=== PATIENT | male | born 1945 | race Caucasian/White ===

== ENCOUNTER 2018-05-01 19:03 | Inpatient (IN) ==
[2018-05-01] MEDS ORDERED: NS 1000 ML 1,000 ML IV ONE (19:43)
--- NOTE | 2018-05-01 19:43 | DR.GENAD ---
HPI - PCP Primary Care Physician: Gregory - Complaint/Symptoms Chief Complaint Doctors Comments: I agree with statement as written. Chief Complaint:: Started having trouble breathing yesterday which has became worse. Patient's states that his left arm has been hurting him, he has had trouble walking and his face has been very red. Patient states that he was diagnosed with ALS 8 months ago. - Source History Provided: Patient, Significant Other - Mode of Arrival Mode of Arrival: Ambulatory - Timing Onset of Chief Complaint: 04/30/18 PMH - PMH Past Medical History: Yes Past Medical History: Kidney Stones Past Medical History Comment: ALS, HX of throrat CA Past Surgical History: Yes Surgical History: Cholecystectomy, Ortho Surgery, Lithotripsy Past Surgical History Comment: BACK SURGERY - Family History History of Family Medical Conditions: Yes Family Medical History: Diabetes Mellitus, Cancer, [place] - Social History Does patient currently use any type of tobacco product: No Have you used tobacco products in the last 12 months: No Type of Tobacco Use: Cigarettes Does any household member use tobacco: No Alcohol Use: None Do you use any recreational Drugs:: No Lives With: Spouse Lives Where: Home - infectious screening In the last 2 months have you had wt loss of >10#?: NO Have you had fever, night sweats or hemotysis?: No Have you traveled outside the country in the last 6 months?: No Isolation: Standard ROS - Review of Systems Eyes: No Symptoms Reported ENTM: No Symptoms Reported Respiratoy: No Symptoms Reported Cardiovascular: No Symptoms Reported Gastrointestinal/Abdominal: No Symptoms Reported Genitourinary: No Symptoms Reported Neurological: No Symptoms Reported Musculoskeletal: No Symptoms Reported Integumentary: No Symptoms Reported Hematologic/Lymphatic: No Symptoms Reported Endocrine: No Symptoms Reported Psychiatric: No Symptoms Reported All Other Systems: Reviewed and Negative PE - General General Appearance: Alert, In No Apparent Distress - Head Head Exam: Normal Inspection, Atraumatic - Eyes Eye exam: Normal Appearance, PERRL, EOMI - ENT ENT Exam: Normal Exam External Ear Exam: Normal External Inspection TM/Canal Exam: Bilateral Normal Nose Exam: Normal Nose Exam Mouth Exam: Normal Inspection Throat Exam: Normal Inspection - Neck Neck Exam: Normal Inspection, Full ROM - Chest Chest Inspection: Normal Inspection, Symmetric Chest Wall Rise - Respiratory Respiratory Exam: Normal Lung Sounds Bilat Respiratory Exam: Bilateral Clear to Auscultation - Cardiovascular Cardiovascular Exam: Regular Rate, Normal Rhythm - Abdominal Exam Abdominal Exam: Normal Inspection, Normal Bowel Sounds Abdominal Tenderness: negative: RUQ, RLQ, LUQ, LLQ, Epigastrium, Suprapubic, Diffuse, Mild, Moderate, Severe, Other - Extremities Extremities Exam: Normal Inspection - Back Back Exam: Normal Inspection, Full ROM - Neurologic Neurological Exam: Alert, Oriented X3, CN II-XII Intact - Psychiatric Psychiatric Exam: Normal Affect - Skin Skin Exam: Warm, Dry, Intact - Vital Signs Vitals: Temperature 102.2 F Pulse Rate 90 Respiratory Rate 20 Blood Pressure 111/68 O2 Sat by Pulse Oximetry 93 Course - Treatment Treatment: antibiotic - Reevaluation 1st: Unchanged - Consultation Called: 00:15 (Dr Sumner agreed to admit for further management) ROR - Labs Reviewed Result Diagrams: 05/01/18 20:03 05/01/18 20:03 - XRAY XRAY Interpreted by: Radiologist - Labs Reviewed Laboratory: WBC 10.1 X10^3/uL (3.6-10.0) H 05/01/18 20:03 RBC 4.59 X10^6/uL (4.7-6.0) L 05/01/18 20:03 Hgb 14.5 g/dL (13.5-18.0) 05/01/18 20:03 Hct 41.7 % (42.0-54.0) L 05/01/18 20:03 MCV 90.8 fL (80.0-100.0) 05/01/18 20:03 MCH 31.5 pg (27.0-34.0) 05/01/18 20:03 MCHC 34.7 g/dL (33.0-35.0) 05/01/18 20:03 RDW 12.9 % (11.6-16.5) 05/01/18 20:03 Plt Count 89 X10^3/uL (150.0-450.0) L 05/01/18 20:03 MPV 9.7 fL (7.4-11.0) 05/01/18 20:03 Neut % (Auto) 89.2 % (42.0-75.0) H 05/01/18 20:03 Lymph % (Auto) 4.9 % (21.0-51.0) L 05/01/18 20:03 [place] % (Auto) 5.7 % (0.0-13.0) 05/01/18 20:03 Eos % (Auto) 0.0 % (0.9-2.9) L 05/01/18 20:03 Baso % (Auto) 0.2 % (0.2-1.0) 05/01/18 20:03 Neut # (Auto) 9.0 x10^3/uL (2.2-4.8) H 05/01/18 20:03 Lymph # (Auto) 0.5 X10^3/uL (1.3-2.9) L 05/01/18 20:03 [place] # (Auto) 0.6 x10^3/uL (0.3-0.8) 05/01/18 20:03 Eos # (Auto) 0.0 x10^3/uL (0.0-0.2) 05/01/18 20:03 Baso # (Auto) 0.0 X10^3/uL (0.0-0.1) 05/01/18 20:03 Absolute Nucleated RBC 0.2 /100WBC 05/01/18 20:03 INR Target Range - 05/01/18 20:03 INR 1.11 (0.8-1.3) 05/01/18 20:03 Sodium 138 mmol/L (136-145) 05/01/18 20:03 Corrected Sodium TNP 05/01/18 20:03 Potassium 4.3 mmol/L (3.5-5.1) 05/01/18 20:03 Chloride 100 mmol/L (98-107) 05/01/18 20:03 Carbon Dioxide 31.2 mmol/L (21-32) 05/01/18 20:03 BUN 16 mg/dL (7-18) 05/01/18 20:03 Creatinine 1.01 mg/dL (0.70-1.30) 05/01/18 20:03 Est GFR (MDRD) Af Amer > 60 (>60) 05/01/18 20:03 Est GFR (MDRD) Non-Af > 60 (>60) 05/01/18 20:03 Glucose 106 mg/dL (65-99) H 05/01/18 20:03 Calcium 9.5 mg/dL (8.5-10.1) 05/01/18 20: Magnesium 1.3 mg/dL (1.7-2.9) L 05/01/18 20: Creatine Kinase 313 Units/L (39-308) H 05/01/18 20: CK-MB (CK-2) 3.3 ng/mL (0-4.0) 05/01/18 20: CK/CKMB % Calc 1.1 % (<4) 05/01/18 20: Troponin I < 0.02 ng/mL (0-1.5) 05/01/18 20:03 Specimen Type Clean catch urine 05/01/18 20: Urine Color Yellow (YELLOW) 05/01/18 20: Urine Appearance Clear (CLEAR) 05/01/18 20: Urine pH 8.0 (5.0 - 8.0) 05/01/18 20: Ur Specific [place] 1.015 (1.000-1.030) 05/01/18 20: Urine Protein 3+ (NEGATIVE) 05/01/18 20: Urine Glucose (UA) Negative (NEGATIVE) 05/01/18 20: Urine Ketones 1+ (NEGATIVE) 05/01/18 20: Urine Occult Blood 5+ (NEGATIVE) 05/01/18 20: Urine Nitrite Negative (NEGATIVE) 05/01/18 20: Urine Bilirubin Negative (NEGATIVE) 05/01/18 20: Urine Urobilinogen 2+ (NORMAL) 05/01/18 20:27 Ur Leukocyte Esterase 1+ (NEGATIVE) 05/01/18 20: Urine RBC Tntc /HPF (NONE SEEN) 05/01/18 20: Urine WBC 0-2 /HPF (NONE SEEN) 05/01/18 20:27 Ur Squamous Epith Cells Few /HPF (NEGATIVE) 05/01/18 20:27 Ur Renal Epithelial Cell Rare /HPF (NEGATIVE) 05/01/18 20: Amorphous Sediment 1+ /HPF (NEGATIVE) 05/01/18 20: Urine Bacteria Negative /HPF (NEGATIVE) 05/01/18 20: Hyaline Casts Rare /LPF (NEGATIVE) 05/01/18 20: Urine Mucus Moderate /HPF (NEGATIVE) 05/01/18 20: Ur Culture Indicated? No/not indicated 05/01/18 20:27 - Diagnosis Discharge Problem: Left lower lobe pneumonia Qualifiers: Pneumonia type: due to unspecified organism Qualified Code(s): J18.1 - Lobar pneumonia, unspecified organism - Discharge Plan Condition: Stable - Follow ups/Referrals Follow ups/Referrals: NFD,None [Primary Care Provider] - 3 days - Instructions
[2018-05-01] MEDS ORDERED: TORADOL 15 MG VIAL IVP ONE (19:44)
[2018-05-01] MEDS ORDERED: TORADOL 30 MG VIAL ONE (19:47)
[2018-05-01] MEDS ORDERED: NS 1000 ML 1,000 ML ONE ×2 (19:47→21:50)
[2018-05-01 20:46] LABS: CREATINE KINASE 313 Units/L (39-308); TROPONIN I < 0.02 ng/mL (0-1.5)
[2018-05-01 20:50] LABS: BASOPHILS % (AUTO) 0.2 % (0.2-1.0); BLOOD UREA NITROGEN 16 mg/dL (7-18); CALCIUM 9.5 mg/dL (8.5-10.1); CARBON DIOXIDE 31.2 mmol/L (21-32); CHLORIDE 100 mmol/L (98-107); CREATININE 1.01 mg/dL (0.70-1.30); HEMATOCRIT 41.7 % (42.0-54.0); HEMOGLOBIN 14.5 g/dL (13.5-18.0); LYMPHOCYTES # (AUTO) 0.5 X10^3/uL (1.3-2.9); LYMPHOCYTES % (AUTO) 4.9 % (21.0-51.0); MEAN CORPUSCULAR HEMOGLOBIN 31.5 pg (27.0-34.0); MEAN CORPUSCULAR HGB CONC 34.7 g/dL (33.0-35.0); MEAN CORPUSCULAR VOLUME 90.8 fL (80.0-100.0); MEAN PLATELET VOLUME 9.7 fL (7.4-11.0); MONOCYTES # (AUTO) 0.6 x10^3/uL (0.3-0.8); MONOCYTES % (AUTO) 5.7 % (0.0-13.0); NEUTROPHILS % (AUTO) 89.2 % (42.0-75.0); PLATELET COUNT 89 X10^3/uL (150.0-450.0); RED BLOOD COUNT 4.59 X10^6/uL (4.7-6.0); RED CELL DISTRIBUTION WIDTH 12.9 % (11.6-16.5); SODIUM 138 mmol/L (136-145); WHITE BLOOD COUNT 10.1 X10^3/uL (3.6-10.0); eGFR NON BLACK RACES > 60 (>60)
[2018-05-01 20:51] LABS: BILIRUBIN,URINE NEGATIVE (NEGATIVE); BLOOD/HEMOGLOBIN,URINE 5+ (NEGATIVE); GLUCOSE, URINE NEGATIVE (NEGATIVE); KETONES,URINE 1+ (NEGATIVE); LEUKOCYTE ESTERASE ,URINE 1+ (NEGATIVE); NITRITES,URINE NEGATIVE (NEGATIVE); PROTEIN,URINE 3+ (NEGATIVE); UROBILINOGEN,URINE 2+ (NORMAL)
[2018-05-01 20:53] LABS: CKMB % 1.1 % (<4); CREATINE KINASE MB 3.3 ng/mL (0-4.0)
[2018-05-01 20:54] LABS: APPEARANCE,URINE CLEAR (CLEAR); COLOR,URINE YELLOW (YELLOW)
[2018-05-01 21:04] LABS: RBC,URINE TNTC /HPF (NONE SEEN)
[2018-05-01 21:05] LABS: AMORPHOUS SEDIMENT,UR 1+ /HPF (NEGATIVE); BACTERIA,URINE NEGATIVE /HPF (NEGATIVE); HYALINE CASTS, URINE RARE /LPF (NEGATIVE); MUCUS,URINE MODERATE /HPF (NEGATIVE); RENAL EPITHELIAL CELLS,URINE RARE /HPF (NEGATIVE); SQUAMOUS EPITHELIAL CELL,UR FEW /HPF (NEGATIVE)
--- NOTE | 2018-05-01 21:05 | RAD ---
HISTORY: Chest pain and shortness of breath Study: Single view of the chest. Comparison: Possible left lower lobe opacity Findings: The cardiomediastinal silhouette is normal. No focal consolidations, pleural effusions or pneumothora x. Osseous structures demonstrate no acute abnormality. IMPRESSION: 1. Questionable left lower lobe opacity. Recommend PA and lateral views. Reported By:
--- NOTE | 2018-05-01 21:05 | RAD ---
HISTORY: Left arm pain Study: 3 views of the cervical spine. Comparison: None Findings: The cervical spine demonstrate normal alignment from the craniocervical junction to the level of T1. Multilevel degenerative disc disease worst at C3-C4. The vertebral body heights are normal. No preve rtebral soft tissue swelling can be identified. The odontoid appears intact. The lateral masses of C1 align with the body of C2. IMPRESSION: 1. Multilevel degenerative disc disease as above. Reported By:
[2018-05-01] MEDS ORDERED: MAGNESIUM SULFATE 1 GRAM/100 mL PREMIX 1 G/100 ML BAG IV ONE (21:19)
[2018-05-01] MEDS ORDERED: NS 1000 ML 1,000 ML IV SCH (22:05)
[2018-05-01] MEDS ORDERED: TYLENOL 500 MG TAB EXTRA STRENGTH PO ONE ×2 (23:13→23:17)
[2018-05-02] MEDS ORDERED: NS 1/2 1000 ML IV 1,000 ML IV ONE ×2 (00:33→17:16)
[2018-05-02] MEDS ORDERED: ROCEPHIN VIAL 1 GRAM ONE (00:33)
[2018-05-02] MEDS ORDERED: NS 100 ML IV + SPIKE MINIBAG* 100 ML IV ONE ×2 (00:35→02:00)
[2018-05-02] MEDS: ROCEPHIN 1 GRAM IV PREMIX 1 G/50 ML IV.SOLN. IV SCH ×3 (00:39→08:43)
[2018-05-02] MEDS: NS 1/2 1000 ML IV 1,000 ML IV SCH ×2 (00:40→17:28)
[2018-05-02 01:59] LABS: ABG BASE EXCESS 5.3 mmol/L (-2.0-2.0)
[2018-05-02 02:00] LABS: ABG HCO3 30.5 mmol/L (22-26)
[2018-05-02] MEDS ORDERED: VIBRAMYCIN IV ONE (02:00)
[2018-05-02] MEDS: VIBRAMYCIN 100 MG in NS 100 ML IV + SPIKE MINIBAG* 100 ML IV SCH ×3 (02:05→21:15)
[2018-05-02] MEDS: XOPENEX 1.25 MG/3 ML NEBULE NEB SCH ×5 (02:11→21:43)
[2018-05-02] MEDS: VALIUM PO PRN ×2 (04:40→21:16)
[2018-05-02] MEDS ORDERED: MAGNESIUM SULFATE 1 GRAM/100 mL PREMIX 1 G/100 ML BAG IV ONE (05:54)
[2018-05-02] MEDS: MAGNESIUM SULFATE 1 GRAM/100 mL PREMIX 1 GM/100 ML BAG IV PRN ×2 (06:26→08:42)
--- NOTE | 2018-05-02 08:32 | DR.H&P ---
H&P - History & Physical for Day of: H&P Date: 05/01/18 - Chief Complaint Chief Complaint: SHORT OF BREATH, LEFT ARM PAIN - History of Present Illness History of Present Illness: IS A 73 YEAR OLD PATIENT OF OURS WHO PRESENTED TO THE EMERGENCY ROOM WITH COMPLAINTS OF SHORTNESS OF BREATH AND DIFFICULTY BREATHING. ASSOCIATED LEFT ARM PAIN AND DIFFICULTY WALKING WAS REPORTED BY PATIENTS SPOUSE. SHE ALSO REPORTS THAT HIS FACE HAD BEEN VERY RED. PATIENT HAS A HISTORY SIGNIFICANT FOR THROAT CANCER AND ALS WHICH WAS DIAGNOSED EIGHT MONTHS AGO. ON ARRIVAL, VITALS WERE 102.2-90-20-93%-111/68. LABS WERE OBTAINED. ABNORMAL LAB VALUES INCLUDE THE FOLLOWING: WBC 10.1, RBC 4.59, HCT 41.7, PLT COUNT 89, GLUCOSE 106, MAGNESIUM 1.3, CREATINE KINASE 313. ABG REVEALED PH 7.430, PC02 46, P02 61, HC03 30.5, OXYGEN SATURATION 92, BASE EXCESS 5.3. URINALYSIS REVEALED RBC TNTC, WBC 0-2, LEUKOCYTES 1+, BACTERIA NEGATIVE. A CHEST XRAY WAS OBTAINED AND REVEALED QUESTIONABLE LEFT LOWER LOBE OPACITY. C-SPINE WAS OBTAINED DUE TO COMPLAINTS OF LEFT ARM PAIN AND NECK PAIN. IT REVEALED MULTILEVEL DEGENERATIVE DISC DISEASE. EKG REVEALED ATRIAL FIBRILLATION WITH HR 109. HE WAS GIVEN TYLENOL FOR FEVER, MAGNESIUM SULFATE 1GM IV, TORADOL 30MG IV X 1 DOSE, AND A NORMAL SALINE BOLUS IN THE ER. HE WAS THEN STARTED ON NS AT 75ML/HR, ROCEPHIN 1GM IV DAILY, AND DOXYCYCLINE 100MG IV Q12H. HE WAS ADMITTED TO THE HOSPITAL FOR FURTHER EVALUATION AND TREATMENT OF LEFT LOWER LOBE PNEUMONIA. WE PLAN TO FOLLOW UP WITH AM LABS AND CHEST XRAY AND CONTINUE TO MONITOR PATIENT. - Past Medical History Past Medical History: Anxiety, Arthritis, Kidney Stones Additional Medical History: ALS, PERICARDITIS, CONSTIPATION, KIDNEY STONES, CHRONIC BACK PAIN, RHEUMATOID ARTHRITIS, THROAT CANCER - Past Surgical History Surgical History: Appendectomy, Cholecystectomy, Lithotripsy, Other - Family History Family Medical History: Diabetes Mellitus, Cancer, [place] - Social History Does patient currently use any type of tobacco product: No Have you used tobacco products in the last 12 months: No Type of Tobacco Use: None How many years tobacco product used: 40 Does any household member use tobacco: No Alcohol Use: None Drug Use: None - Medications Home Medications: acetaminophen [From Percocet] Adverse Reaction (Verified 05/01/18 19:05) ciprofloxacin [From Cipro] Adverse Reaction (Verified 05/01/18 19:05) oxycodone [From Percocet] Adverse Reaction (Verified 05/01/18 19:05) CONTINUE taking the following medications NK 05/02/18 [History] - Review of Systems Constitutional: Fever, Weakness Eyes: No Symptoms Reported ENT: No Symptoms Reported Respiratory: See HPI, Cough, Shortness of Breath. denies: Sputum, Wheezing Cardiovascular: No Symptoms Reported Gastrointestinal: No Symptoms Reported Genitourinary: No Symptoms Reported Musculoskeletal: No Symptoms Reported Skin: No Symptoms Reported Neurological: Weakness - Physical Exam Vital Signs: Temperature 97.9 F Pulse Rate [Right Radial] 96 Pulse Rate 112 Respiratory Rate 20 Blood Pressure [Left Arm] 136/71 Blood Pressure 111/68 O2 Sat by Pulse Oximetry 99 Oriented: Normal Eyes: Normal Ear: Normal Nose: Normal Throat: Normal Respiratory: Diminished Throughout Cardiovascular: Normal. negative: S3, S4, Murmur, Edema : Normal Auscultation: Bowel Sounds: Normal Palpation: Normal Tenderness: Normal Skin: Normal Musculoskeletal: Normal Psychiatric: Normal Mood Description: Calm Affect: Normal Speech Pattern: Clear - Assessment/Plan (1) Left lower lobe pneumonia Qualifiers: Pneumonia type: due to unspecified organism Qualified Code(s): J18.1 - Lobar pneumonia, unspecified organism Status: Acute Plan: ADMIT, PNEUMONIA PROTOCOL, ROCEPHIN IV DAILY, DOXYCYCLINE 100MG IV Q12H, SUPPLEMENTAL OXYGEN, RESPIRATORY TREATMENTS, CONTINUE TO MONITOR - Allergies Allergies/Adverse Reactions: Allergies Allergy/AdvReac Type Severity Reaction Status Date / Time acetaminophen [From Percocet] AdvReac Verified 05/01/18 19:05 ciprofloxacin [From Cipro] AdvReac Verified 05/01/18 19:05 oxycodone [From Percocet] AdvReac Verified 05/01/18 19:05
[2018-05-02 08:38] LABS: BASOPHILS % (AUTO) 0.1 % (0.2-1.0); HEMATOCRIT 35.7 % (42.0-54.0); HEMOGLOBIN 12.3 g/dL (13.5-18.0); LYMPHOCYTES # (AUTO) 0.5 X10^3/uL (1.3-2.9); LYMPHOCYTES % (AUTO) 7.1 % (21.0-51.0); MEAN CORPUSCULAR HEMOGLOBIN 31.7 pg (27.0-34.0); MEAN CORPUSCULAR HGB CONC 34.3 g/dL (33.0-35.0); MEAN CORPUSCULAR VOLUME 92.2 fL (80.0-100.0); MEAN PLATELET VOLUME 10.1 fL (7.4-11.0); MONOCYTES # (AUTO) 0.5 x10^3/uL (0.3-0.8); MONOCYTES % (AUTO) 6.4 % (0.0-13.0); NEUTROPHILS # (AUTO) 6.6 x10^3/uL (2.2-4.8); NEUTROPHILS % (AUTO) 86.4 % (42.0-75.0); PLATELET COUNT 64 X10^3/uL (150.0-450.0); RED BLOOD COUNT 3.87 X10^6/uL (4.7-6.0); RED CELL DISTRIBUTION WIDTH 12.8 % (11.6-16.5); WHITE BLOOD COUNT 7.6 X10^3/uL (3.6-10.0)
[2018-05-02 08:39] LABS: BLOOD UREA NITROGEN 16 mg/dL (7-18); CALCIUM 8.8 mg/dL (8.5-10.1); CARBON DIOXIDE 30.1 mmol/L (21-32); CHLORIDE 104 mmol/L (98-107); COR NA(FOR HYPERGLY) 142 mmol/L (136-145); CREATININE 1.05 mg/dL (0.70-1.30); SODIUM 140 mmol/L (136-145); eGFR NON BLACK RACES > 60 (>60)
[2018-05-02] MEDS: ROBITUSSIN DM PO SCH ×4 (08:41→21:15)
[2018-05-02] MEDS: MILK OF MAGNESIA PO SCH ×2 (08:41→21:15)
[2018-05-02 08:43] LABS: CKMB % 1.6 % (<4); CREATINE KINASE 170 Units/L (39-308); CREATINE KINASE MB 2.7 ng/mL (0-4.0); TROPONIN I 0.02 ng/mL (0-1.5)
--- NOTE | 2018-05-02 08:57 | RAD ---
History: Left lower lobe pneumonia, shortness of breath, comparison 05/01/2018 Study: Portable chest Findings: Portable AP erect chest labeled 845 hours shows the cardiac silhouette to be within normal limits. The pulmonary vasculature appears at upper limits normal. There is opacity in the left base compatible with pneumonia and/or atelectasis. No pleural effusion i s identified. The osseous structures appear intact. Impression: 1. Increasing opacity left base, atelectasis versus pneumonia. 2. No additional consolidation elsewhere in the chest is identified. Reported By:
[2018-05-02 13:53] LABS: ALANINE AMINOTRANSFERASE 31 Units/L (12-78); ALBUMIN 2.7 g/dL (3.4-5.0); ALKALINE PHOSPHATASE 46 Units/L (46-116); ASPARTATE AMINO TRANSFERASE 37 Units/L (15-37); COR CA(FOR HYPOALB) 9.8 mg/dL (8.5-10.1); TOTAL PROTEIN 5.5 g/dL (6.4-8.2)
--- NOTE | 2018-05-02 17:50 | PCM.PROG ---
Progress Note - Progress Note for Day of Date: 05/02/18 - Subjective Subjective: WAS ADMITTED LAST NIGHT FOR LEFT LOWER LOBE PNEUMONIA. TODAY , HE IS ALERT AND ORIENTED, LYING IN BED ON MORNING ROUNDS. HE CONTINUES WITH COMPLAINTS OF SHORTNESS OF BREATH, BUT REPORTS THAT IT HAS SLIGHTLY IMPROVED SINCE ADMISSION. ON EXAMINATION, HEART IS REGULAR IN RATE AND RHYTHM. BILATERAL LUNGS ARE NOTED WITH DIMINISHED LUNG SOUNDS THROUGHT. HE IS CURRENTLY UTILIZING OXYGEN VIA NASAL CANNULA AT 2L/MIN. ABDOMEN IS ROUND, SOFT, AND NON-TENDER WITH NORMAL BOWEL SOUNDS NOTED IN ALL QUADRANTS. HIS VITALS THIS MORNING ARE 97.6-78- 20-96%-113/53. LABS WERE OBTAINED. ABNORMAL LAB VALUES INCLUDE THE FOLLOWING: RBC 3.87, HGB 12.3, HCT 35.7, PLT COUNT 64, GLUCOSE 169, MAGNESIUM 1.5, TOTAL PROTEIN 5.5, ALBUMIN 2.7. TODAYS CHEST XRAY REVEALED INCREASING OPACITY LEFT BASE, ATELECTASIS VERSUS PNEUMONIA. HE IS CURRENTLY RECEIVING ROCEPHIN AND DOXYCYCLINE WELL RESPIRATORY TREATMENTS AND SUPPELEMENTAL OXYGEN. WE WILL CONTINUE WITH CURRENT PLAN OF ARE AND REPLACE HIS MAGNESIUM TODAY. OTHERWISE, WE WILL FOLLOW UP WITH AM LABS AND CHEST XRAY AND CONTINUE TO MONITOR PATIENT. - Past Medical Family Social History Past Med/Fam/Surg Hx: No changes since H&P Allergies: Allergies acetaminophen [From Percocet] Adverse Reaction (Verified 05/01/18 19:05) ciprofloxacin [From Cipro] Adverse Reaction (Verified 05/01/18 19:05) oxycodone [From Percocet] Adverse Reaction (Verified 05/01/18 19:05) - Review of Systems ROS: No change since H&P - Vital Signs and I&O's Vital Signs: Temperature 97.2 F Pulse Rate [Right Radial] 91 Pulse Rate 88 Respiratory Rate 18 Blood Pressure [Left Arm] 137/69 Blood Pressure 111/68 O2 Sat by Pulse Oximetry 97 Intake and Output: Intake & Output 04/30/18 05/01/18 05/02/18 05/03/18 11:59 11:59 11:59 11:59 Intake Total 720 / 720 1350 / 1350 Output Total 700 / 700 200 / 200 Balance 1150 / 1150 - Physical Exam Oriented: Normal Eyes: Normal Ear: Normal Nose: Normal Throat: Normal Respiratory: Generalized, Diminished Cardiovascular: Normal. negative: S3, S4, Murmur, Edema : Normal Auscultation: Bowel Sounds: Normal Palpation: Normal Tenderness: Normal Skin: Normal Musculoskeletal: Normal Psychiatric: Normal Mood Description: Calm Affect: Normal Speech Pattern: Clear - Laboratory and Diagnostics Result Diagrams: 05/02/18 05:05 05/02/18 05:05 Labs: 05/02/18 00:15 Sputum - Expectorated Sputum - Final Laboratory WBC 7.6 X10^3/uL (3.6-10.0) 05/02/18 05:05 RBC 3.87 X10^6/uL (4.7-6.0) L 05/02/18 05:05 Hgb 12.3 g/dL (13.5-18.0) L D 05/02/18 05:05 Hct 35.7 % (42.0-54.0) L 05/02/18 05:05 MCV 92.2 fL (80.0-100.0) 05/02/18 05:05 MCH 31.7 pg (27.0-34.0) 05/02/18 05:05 MCHC 34.3 g/dL (33.0-35.0) 05/02/18 05:05 RDW 12.8 % (11.6-16.5) 05/02/18 05:05 Plt Count 64 X10^3/uL (150.0-450.0) L 05/02/18 05:05 MPV 10.1 fL (7.4-11.0) 05/02/18 05:05 Neut % (Auto) 86.4 % (42.0-75.0) H 05/02/18 05:05 Lymph % (Auto) 7.1 % (21.0-51.0) L 05/02/18 05:05 [place] % (Auto) 6.4 % (0.0-13.0) 05/02/18 05:05 Eos % (Auto) 0.0 % (0.9-2.9) L 05/02/18 05:05 Baso % (Auto) 0.1 % (0.2-1.0) L 05/02/18 05:05 Neut # (Auto) 6.6 x10^3/uL (2.2-4.8) H 05/02/18 05:05 Lymph # (Auto) 0.5 X10^3/uL (1.3-2.9) L 05/02/18 05:05 [place] # (Auto) 0.5 x10^3/uL (0.3-0.8) 05/02/18 05:05 Eos # (Auto) 0.0 x10^3/uL (0.0-0.2) 05/02/18 05:05 Baso # (Auto) 0.0 X10^3/uL (0.0-0.1) 05/02/18 05:05 Absolute Nucleated RBC 0.1 /100WBC 05/02/18 05:05 INR Target Range - 05/01/18 20:03 INR 1.11 (0.8-1.3) 05/01/18 20:03 Sample Site Rbra 05/02/18 00:26 ABG pH 7.430 (7.35-7.45) 05/02/18 00:26 ABG pCO2 46.0 mmHg (35.0-45.0) H 05/02/18 00:26 ABG pO2 61.0 mmHg (80.0-100.0) L 05/02/18 00:26 ABG HCO3 30.5 mmol/L (22-26) H* 05/02/18 00:26 ABG O2 Saturation 92.0 % (90-100) 05/02/18 00:26 ABG Base Excess 5.3 mmol/L (-2.0-2.0) H 05/02/18 00:26 Joshua Test Na 05/02/18 00:26 A-a Gradient 31.0 mmHg 05/02/18 00:26 FiO2 21.000 05/02/18 00:26 Blood Gas Comments Josefa abg well-mtf 05/02/18 00:26 Sodium 140 mmol/L (136-145) 05/02/18 05:05 Corrected Sodium 142 mmol/L (136-145) 05/02/18 05:05 Potassium 3.6 mmol/L (3.5-5.1) 05/02/18 05:05 Chloride 104 mmol/L (98-107) 05/02/18 05:05 Carbon Dioxide 30.1 mmol/L (21-32) 05/02/18 05:05 BUN 16 mg/dL (7-18) 05/02/18 05:05 Creatinine 1.05 mg/dL (0.70-1.30) 05/02/18 05:05 Est GFR (MDRD) Af Amer > 60 (>60) 05/02/18 05:05 Est GFR (MDRD) Non-Af > 60 (>60) 05/02/18 05:05 Glucose 169 mg/dL (65-99) H 05/02/18 05:05 Calcium 8.8 mg/dL (8.5-10.1) 05/02/18 05:05 Corrected Calcium 9.8 mg/dL (8.5-10.1) 05/02/18 05:05 Magnesium 1.5 mg/dL (1.7-2.9) L 05/02/18 05:05 Total Bilirubin 0.90 mg/dL (0.2-1.0) 05/02/18 05:05 AST 37 Units/L (15-37) 05/02/18 05:05 ALT 31 Units/L (12-78) 05/02/18 05:05 Alkaline Phosphatase 46 Units/L (46-116) 05/02/18 05:05 Lactate Dehydrogenase 200 Units/L (85-227) 05/01/18 20:03 Creatine Kinase 170 Units/L (39-308) 05/02/18 05:05 CK-MB (CK-2) 2.7 ng/mL (0-4.0) 05/02/18 05:05 CK/CKMB % Calc 1.6 % (<4) 05/02/18 05:05 Troponin I 0.02 ng/mL (0-1.5) 05/02/18 05:05 Total Protein 5.5 g/dL (6.4-8.2) L 05/02/18 05:05 Albumin 2.7 g/dL (3.4-5.0) L 05/02/18 05:05 Globulin 2.8 g/dL (2.5-4.5) 05/02/18 05:05 Albumin/Globulin Ratio 1.0 Ratio (1.1-2.1) L 05/02/18 05:05 Specimen Type Clean catch urine 05/01/18 20:27 Urine Color Yellow (YELLOW) 05/01/18 20:27 Urine Appearance Clear (CLEAR) 05/01/18 20:27 Urine pH 8.0 (5.0 - 8.0) 05/01/18 20:27 Ur Specific [place] 1.015 (1.000-1.030) 05/01/18 20:27 Urine Protein 3+ (NEGATIVE) 05/01/18 20:27 Urine Glucose (UA) Negative (NEGATIVE) 05/01/18 20: Urine Ketones 1+ (NEGATIVE) 05/01/18 20: Urine Occult Blood 5+ (NEGATIVE) 05/01/18 20:27 Urine Nitrite Negative (NEGATIVE) 05/01/18 20: Urine Bilirubin Negative (NEGATIVE) 05/01/18 20:27 Urine Urobilinogen 2+ (NORMAL) 05/01/18 20:27 Ur Leukocyte Esterase 1+ (NEGATIVE) 05/01/18 20:27 Urine RBC Tntc /HPF (NONE SEEN) 05/01/18 20:27 Urine WBC 0-2 /HPF (NONE SEEN) 05/01/18 20:27 Ur Squamous Epith Cells Few /HPF (NEGATIVE) 05/01/18 20:27 Ur Renal Epithelial Cell Rare /HPF (NEGATIVE) 05/01/18 20:27 Amorphous Sediment 1+ /HPF (NEGATIVE) 05/01/18 20:27 Urine Bacteria Negative /HPF (NEGATIVE) 05/01/18 20:27 Hyaline Casts Rare /LPF (NEGATIVE) 05/01/18 20:27 Urine Mucus Moderate /HPF (NEGATIVE) 05/01/18 20:27 Ur Culture Indicated? No/not indicated 05/01/18 20:27 - Plan (1) Left lower lobe pneumonia Status: Acute Qualifiers: Pneumonia type: due to unspecified organism Qualified Code(s): J18.1 - Lobar pneumonia, unspecified organism Plan: ADMIT, PNEUMONIA PROTOCOL, ROCEPHIN IV DAILY, DOXYCYCLINE 100MG IV Q12H, SUPPLEMENTAL OXYGEN, RESPIRATORY TREATMENTS, CONTINUE TO MONITOR
[2018-05-02] MEDS: COLACE CAP 100 MG PO SCH (21:16)
[2018-05-03] MEDS ORDERED: NS 1/2 1000 ML IV 1,000 ML IV ONE (05:28)
[2018-05-03] MEDS: NS 1/2 1000 ML IV 1,000 ML IV SCH ×2 (05:34→21:38)
[2018-05-03 05:38] LABS: BASOPHILS % (AUTO) 0.2 % (0.2-1.0); EOSINOPHILS # (AUTO) 0.1 x10^3/uL (0.0-0.2); EOSINOPHILS % (AUTO) 1.3 % (0.9-2.9); HEMATOCRIT 38.4 % (42.0-54.0); HEMOGLOBIN 13.1 g/dL (13.5-18.0); LYMPHOCYTES # (AUTO) 0.6 X10^3/uL (1.3-2.9); LYMPHOCYTES % (AUTO) 11.3 % (21.0-51.0); MEAN CORPUSCULAR HEMOGLOBIN 31.5 pg (27.0-34.0); MEAN CORPUSCULAR HGB CONC 34.2 g/dL (33.0-35.0); MEAN PLATELET VOLUME 10.3 fL (7.4-11.0); MONOCYTES # (AUTO) 0.4 x10^3/uL (0.3-0.8); MONOCYTES % (AUTO) 6.7 % (0.0-13.0); NEUTROPHILS # (AUTO) 4.6 x10^3/uL (2.2-4.8); NEUTROPHILS % (AUTO) 80.5 % (42.0-75.0); PLATELET COUNT 77 X10^3/uL (150.0-450.0); RED BLOOD COUNT 4.17 X10^6/uL (4.7-6.0); RED CELL DISTRIBUTION WIDTH 13.5 % (11.6-16.5); WHITE BLOOD COUNT 5.7 X10^3/uL (3.6-10.0)
[2018-05-03 05:42] LABS: ALANINE AMINOTRANSFERASE 42 Units/L (12-78); ALBUMIN 3.2 g/dL (3.4-5.0); ALKALINE PHOSPHATASE 58 Units/L (46-116); ASPARTATE AMINO TRANSFERASE 34 Units/L (15-37); BLOOD UREA NITROGEN 13 mg/dL (7-18); CALCIUM 8.9 mg/dL (8.5-10.1); CARBON DIOXIDE 33.2 mmol/L (21-32); CHLORIDE 104 mmol/L (98-107); COR CA(FOR HYPOALB) 9.5 mg/dL (8.5-10.1); CREATININE 0.86 mg/dL (0.70-1.30); MAGNESIUM 1.8 mg/dL (1.7-2.9); SODIUM 142 mmol/L (136-145); TOTAL PROTEIN 6.5 g/dL (6.4-8.2); eGFR NON BLACK RACES > 60 (>60)
[2018-05-03 06:01] LABS: HEMOGLOBIN A1C 5.5 %
--- NOTE | 2018-05-03 06:51 | RAD ---
Examination: AP chest History: Left lower lobe opacity SOB Comparison 05/02/2018 Findings: Persistent normal heart size. Small focal infiltrate again noted left lower lobe. Minimal i nfiltrate right base as well. Upper lungs are clear. No pneumothorax or pleural effusion. Impression: Persistent left basal infiltrate with suspect developing process right lower lung as well . Continued follow-up indicated. Reported By:
[2018-05-03] MEDS: XOPENEX 1.25 MG/3 ML NEBULE NEB SCH ×4 (08:58→20:08)
[2018-05-03] MEDS: ROCEPHIN 1 GRAM IV PREMIX 1 G/50 ML IV.SOLN. IV SCH (09:09)
[2018-05-03] MEDS: VIBRAMYCIN 100 MG in NS 100 ML IV + SPIKE MINIBAG* 100 ML IV SCH (09:09)
[2018-05-03] MEDS: ROBITUSSIN DM PO SCH ×4 (09:09→20:38)
[2018-05-03] MEDS: MILK OF MAGNESIA PO SCH ×2 (09:09→20:38)
[2018-05-03 09:11] VITALS: BMI 19.3
[2018-05-03] MEDS: FORTAZ or TAZICEF VIAL INJ 1 G in NS 100 ML IV + SPIKE MINIBAG* 100 ML IV SCH ×3 (10:25→21:38)
[2018-05-03] MEDS: LEVAQUIN PREMIX IV 750 MG 750 MG/150 ML BAG IV SCH (10:25)
[2018-05-03] MEDS: TEMOVATE CREAM EXT SCH ×2 (10:25→20:39)
--- NOTE | 2018-05-03 11:37 | PCM.PROG ---
Progress Note - Progress Note for Day of Date: 05/03/18 - Subjective Subjective: WAS ADMITTED LAST NIGHT FOR LEFT LOWER LOBE PNEUMONIA. TODAY , HE IS ALERT AND ORIENTED, LYING IN BED ON MORNING ROUNDS. HE CONTINUES WITH COMPLAINTS OF SHORTNESS OF BREATH, BUT REPORTS THAT IT HAS SLIGHTLY IMPROVED SINCE ADMISSION. ON EXAMINATION, HEART IS REGULAR IN RATE AND RHYTHM. BILATERAL LUNGS ARE NOTED WITH DIMINISHED LUNG SOUNDS THROUGHT. HE IS CURRENTLY UTILIZING OXYGEN VIA NASAL CANNULA AT 2L/MIN. ABDOMEN IS ROUND, SOFT, AND NON-TENDER WITH NORMAL BOWEL SOUNDS NOTED IN ALL QUADRANTS. HIS VITALS THIS MORNING ARE 98.1-86- 20-96%-137/87. LABS WERE OBTAINED. ABNORMAL LAB VALUES INCLUDE THE FOLLOWING: RBC 4.17, HGB 13.1, HCT 38.4, PLT COUNT 77, CARBON DIOXIDE 33.2, ALBUMIN 3.2. TODAYS CHEST XRAY REVEALED PERSISTENT LEFT BASAL INFILTRATE WITH SUSPECT DEVELOPING PROCESS RIGHT LOWER LUNG WELL. HE IS CURRENTLY RECEIVING ROCEPHIN AND DOXYCYCLINE WELL RESPIRATORY TREATMENTS AND SUPPELEMENTAL OXYGEN. WE WILL DISCONTINUE THOSE ANTIBIOTICS AND START FORTAZ IV AND LEVAQUIN IV TODAY. OTHERWISE, WE WILL FOLLOW UP WITH AM LABS AND CHEST XRAY AND CONTINUE TO MONITOR PATIENT. - Past Medical Family Social History Past Med/Fam/Surg Hx: No changes since H&P Allergies: Allergies acetaminophen [From Percocet] Adverse Reaction (Verified 05/01/18 19:05) ciprofloxacin [From Cipro] Adverse Reaction (Verified 05/01/18 19:05) oxycodone [From Percocet] Adverse Reaction (Verified 05/01/18 19:05) - Review of Systems ROS: No change since H&P - Vital Signs and I&O's Vital Signs: Temperature 98.0 F Pulse Rate [Right Radial] 89 Pulse Rate 86 Respiratory Rate 20 Blood Pressure [Left Arm] 145/74 Blood Pressure 111/68 O2 Sat by Pulse Oximetry 96 Intake and Output: Intake & Output 04/30/18 05/01/18 05/02/18 05/03/18 11:59 11:59 11:59 11:59 Intake Total 720 / 720 1810 / 1810 Output Total 700 / 700 200 / 200 Balance 20 / 20 1610 / 1610 - Physical Exam Oriented: Normal Eyes: Normal Ear: Normal Nose: Normal Throat: Normal Respiratory: Right, Left, Wheezes Cardiovascular: Normal. negative: S3, S4, Murmur, Edema : Normal Auscultation: Bowel Sounds: Normal Palpation: Normal Tenderness: Normal Skin: Normal Musculoskeletal: Normal Psychiatric: Normal Mood Description: Calm Affect: Normal Speech Pattern: Clear, Appropriate - Laboratory and Diagnostics Result Diagrams: 05/03/18 04:40 05/03/18 04:40 Labs: 05/02/18 00:15 Sputum - Expectorated Sputum Sputum Culture - Preliminary 05/02/18 00:15 Sputum - Expectorated Sputum - Final 05/01/18 20:03 Blood Blood Culture - Preliminary 05/01/18 19:55 Blood Blood Culture - Preliminary Laboratory WBC 5.7 X10^3/uL (3.6-10.0) 05/03/18 04:40 RBC 4.17 X10^6/uL (4.7-6.0) L 05/03/18 04:40 Hgb 13.1 g/dL (13.5-18.0) L 05/03/18 04:40 Hct 38.4 % (42.0-54.0) L 05/03/18 04:40 MCV 92.0 fL (80.0-100.0) 05/03/18 04:40 MCH 31.5 pg (27.0-34.0) 05/03/18 04:40 MCHC 34.2 g/dL (33.0-35.0) 05/03/18 04:40 RDW 13.5 % (11.6-16.5) 05/03/18 04:40 Plt Count 77 X10^3/uL (150.0-450.0) L 05/03/18 04:40 MPV 10.3 fL (7.4-11.0) 05/03/18 04:40 Neut % (Auto) 80.5 % (42.0-75.0) H 05/03/18 04:40 Lymph % (Auto) 11.3 % (21.0-51.0) L 05/03/18 04:40 [place] % (Auto) 6.7 % (0.0-13.0) 05/03/18 04:40 Eos % (Auto) 1.3 % (0.9-2.9) 05/03/18 04:40 Baso % (Auto) 0.2 % (0.2-1.0) 05/03/18 04:40 Neut # (Auto) 4.6 x10^3/uL (2.2-4.8) 05/03/18 04:40 Lymph # (Auto) 0.6 X10^3/uL (1.3-2.9) L 05/03/18 04:40 [place] # (Auto) 0.4 x10^3/uL (0.3-0.8) 05/03/18 04:40 Eos # (Auto) 0.1 x10^3/uL (0.0-0.2) 05/03/18 04:40 Baso # (Auto) 0.0 X10^3/uL (0.0-0.1) 05/03/18 04:40 Absolute Nucleated RBC 0.0 /100WBC 05/03/18 04:40 INR Target Range - 05/01/18 20:03 INR 1.11 (0.8-1.3) 05/01/18 20:03 Sample Site Rbra 05/02/18 00:26 ABG pH 7.430 (7.35-7.45) 05/02/18 00:26 ABG pCO2 46.0 mmHg (35.0-45.0) H 05/02/18 00:26 ABG pO2 61.0 mmHg (80.0-100.0) L 05/02/18 00:26 ABG HCO3 30.5 mmol/L (22-26) H* 05/02/18 00:26 ABG O2 Saturation 92.0 % (90-100) 05/02/18 00:26 ABG Base Excess 5.3 mmol/L (-2.0-2.0) H 05/02/18 00:26 Joshua Test Na 05/02/18 00:26 A-a Gradient 31.0 mmHg 05/02/18 00:26 FiO2 21.000 05/02/18 00:26 Blood Gas Comments Josefa abg well-mtf 05/02/18 00:26 Sodium 142 mmol/L (136-145) 05/03/18 04:40 Corrected Sodium TNP 05/03/18 04:40 Potassium 4.2 mmol/L (3.5-5.1) 05/03/18 04:40 Chloride 104 mmol/L (98-107) 05/03/18 04:40 Carbon Dioxide 33.2 mmol/L (21-32) H 05/03/18 04:40 BUN 13 mg/dL (7-18) 05/03/18 04:40 Creatinine 0.86 mg/dL (0.70-1.30) 05/03/18 04:40 Est GFR (MDRD) Af Amer > 60 (>60) 05/03/18 04:40 Est GFR (MDRD) Non-Af > 60 (>60) 05/03/18 04:40 Glucose 99 mg/dL (65-99) 05/03/18 04:40 Hemoglobin A1c 5.5 % 05/03/18 04:40 Calcium 8.9 mg/dL (8.5-10.1) 05/03/18 04:40 Corrected Calcium 9.5 mg/dL (8.5-10.1) 05/03/18 04:40 Magnesium 1.8 mg/dL (1.7-2.9) 05/03/18 04:40 Total Bilirubin 0.50 mg/dL (0.2-1.0) 05/03/18 04:40 AST 34 Units/L (15-37) 05/03/18 04:40 ALT 42 Units/L (12-78) 05/03/18 04:40 Alkaline Phosphatase 58 Units/L (46-116) 05/03/18 04:40 Lactate Dehydrogenase 200 Units/L (85-227) 05/01/18 20:03 Creatine Kinase 170 Units/L (39-308) 05/02/18 05:05 CK-MB (CK-2) 2.7 ng/mL (0-4.0) 05/02/18 05:05 CK/CKMB % Calc 1.6 % (<4) 05/02/18 05:05 Troponin I 0.02 ng/mL (0-1.5) 05/02/18 05:05 Total Protein 6.5 g/dL (6.4-8.2) 05/03/18 04:40 Albumin 3.2 g/dL (3.4-5.0) L 05/03/18 04:40 Globulin 3.3 g/dL (2.5-4.5) 05/03/18 04:40 Albumin/Globulin Ratio 1.0 Ratio (1.1-2.1) L 05/03/18 04:40 Specimen Type Clean catch urine 05/01/18 20: Urine Color Yellow (YELLOW) 05/01/18 20: Urine Appearance Clear (CLEAR) 05/01/18 20:27 Urine pH 8.0 (5.0 - 8.0) 05/01/18 20:27 Ur Specific [place] 1.015 (1.000-1.030) 05/01/18 20: Urine Protein 3+ (NEGATIVE) 05/01/18 20:27 Urine Glucose (UA) Negative (NEGATIVE) 05/01/18 20: Urine Ketones 1+ (NEGATIVE) 05/01/18 20: Urine Occult Blood 5+ (NEGATIVE) 05/01/18 20: Urine Nitrite Negative (NEGATIVE) 05/01/18 20: Urine Bilirubin Negative (NEGATIVE) 05/01/18 20: Urine Urobilinogen 2+ (NORMAL) 05/01/18 20: Ur Leukocyte Esterase 1+ (NEGATIVE) 05/01/18 20:27 Urine RBC Tntc /HPF (NONE SEEN) 05/01/18 20:27 Urine WBC 0-2 /HPF (NONE SEEN) 05/01/18 20:27 Ur Squamous Epith Cells Few /HPF (NEGATIVE) 05/01/18 20:27 Ur Renal Epithelial Cell Rare /HPF (NEGATIVE) 05/01/18 20:27 Amorphous Sediment 1+ /HPF (NEGATIVE) 05/01/18 20:27 Urine Bacteria Negative /HPF (NEGATIVE) 05/01/18 20:27 Hyaline Casts Rare /LPF (NEGATIVE) 05/01/18 20: Urine Mucus Moderate /HPF (NEGATIVE) 05/01/18 20:27 Ur Culture Indicated? No/not indicated 05/01/18 20:27 - Plan (1) Left lower lobe pneumonia Status: Acute Qualifiers: Pneumonia type: due to unspecified organism Qualified Code(s): J18.1 - Lobar pneumonia, unspecified organism Plan: PNEUMONIA PROTOCOL, LEVAQUIN IV DAILY, FORTAZ 1GM IV Q8H, SUPPLEMENTAL OXYGEN, RESPIRATORY TREATMENTS, CONTINUE TO MONITOR
[2018-05-03] MEDS: COLACE CAP 100 MG PO SCH (20:37)
[2018-05-03] MEDS: VALIUM PO PRN (20:40)
[2018-05-04] MEDS ORDERED: NS 1/2 1000 ML IV 1,000 ML IV ONE ×2 (04:24→21:35)
[2018-05-04 05:50] LABS: BASOPHILS % (AUTO) 0.2 % (0.2-1.0); EOSINOPHILS # (AUTO) 0.1 x10^3/uL (0.0-0.2); EOSINOPHILS % (AUTO) 1.7 % (0.9-2.9); HEMATOCRIT 39.6 % (42.0-54.0); HEMOGLOBIN 13.5 g/dL (13.5-18.0); LYMPHOCYTES # (AUTO) 0.7 X10^3/uL (1.3-2.9); LYMPHOCYTES % (AUTO) 16.7 % (21.0-51.0); MEAN CORPUSCULAR HEMOGLOBIN 31.5 pg (27.0-34.0); MEAN CORPUSCULAR HGB CONC 34.2 g/dL (33.0-35.0); MEAN CORPUSCULAR VOLUME 92.2 fL (80.0-100.0); MEAN PLATELET VOLUME 9.8 fL (7.4-11.0); MONOCYTES # (AUTO) 0.3 x10^3/uL (0.3-0.8); MONOCYTES % (AUTO) 7.8 % (0.0-13.0); NEUTROPHILS # (AUTO) 3.1 x10^3/uL (2.2-4.8); NEUTROPHILS % (AUTO) 73.6 % (42.0-75.0); PLATELET COUNT 89 X10^3/uL (150.0-450.0); RED BLOOD COUNT 4.29 X10^6/uL (4.7-6.0); WHITE BLOOD COUNT 4.2 X10^3/uL (3.6-10.0)
[2018-05-04 05:53] LABS: ALANINE AMINOTRANSFERASE 41 Units/L (12-78); ALBUMIN 3.2 g/dL (3.4-5.0); ALKALINE PHOSPHATASE 55 Units/L (46-116); ASPARTATE AMINO TRANSFERASE 28 Units/L (15-37); BLOOD UREA NITROGEN 10 mg/dL (7-18); CALCIUM 9.4 mg/dL (8.5-10.1); CARBON DIOXIDE 32.7 mmol/L (21-32); CHLORIDE 106 mmol/L (98-107); CREATININE 0.84 mg/dL (0.70-1.30); SODIUM 144 mmol/L (136-145); TOTAL PROTEIN 6.7 g/dL (6.4-8.2); eGFR NON BLACK RACES > 60 (>60)
[2018-05-04] MEDS: FORTAZ or TAZICEF VIAL INJ 1 G in NS 100 ML IV + SPIKE MINIBAG* 100 ML IV SCH ×3 (06:10→21:40)
--- NOTE | 2018-05-04 06:47 | RAD ---
HISTORY: Follow-up lung infiltrate Study: Chest AP portable Comparison: 05/03/2018 Findings: The heart is within normal limits in size. The jose g are normal. The lungs are generally well inflated . The right lung and left upper lung [place] are clear. There is improving left basilar lung opacity w ith some residual subsegmental atelectasis remaining in the left lower lobe. No pleural effusions are identified. The bony thorax is unremarkable. IMPRESSION: Improving aeration of the left lower lobe with some residual subsegmental atelectasis present Reported By:
[2018-05-04] MEDS: XOPENEX 1.25 MG/3 ML NEBULE NEB SCH ×4 (08:10→20:22)
[2018-05-04] MEDS: ROBITUSSIN DM PO SCH ×4 (08:52→21:39)
[2018-05-04] MEDS: LEVAQUIN PREMIX IV 750 MG 750 MG/150 ML BAG IV SCH (08:52)
[2018-05-04] MEDS: MILK OF MAGNESIA PO SCH ×2 (08:52→21:39)
[2018-05-04] MEDS: TEMOVATE CREAM EXT SCH ×2 (13:45→21:40)
--- NOTE | 2018-05-04 16:08 | RAD ---
HISTORY: Foot pain without injury. Study: Three views of the left foot. Comparison: None. Findings: No acute cortical disruption or dislocation can be identified. No significant soft tissue swelling o r injury can be seen. Calcaneal enthesophytes. Mild osteoarthritis of the 1st MTP joint. IMPRESSION: Chronic findings as above. Reported By:
--- NOTE | 2018-05-04 17:06 | RAD ---
HISTORY: Nontraumatic foot pain Study: 3 views of the right/left foot. Comparison: None Findings: No acute fracture or dislocation. Joint spaces are well aligned. No significant soft tissue swelling or injury can be seen. IMPRESSION: 1. No acute abnormalities in the right foot. Reported By:
--- NOTE | 2018-05-04 17:59 | PCM.PROG ---
Progress Note - Progress Note for Day of Date: 05/04/18 - Subjective Subjective: WAS ADMITTED LAST NIGHT FOR LEFT LOWER LOBE PNEUMONIA. TODAY , HE IS ALERT AND ORIENTED, LYING IN BED ON MORNING ROUNDS. HE CONTINUES WITH COMPLAINTS OF SHORTNESS OF BREATH, BUT CONTINUES TO REPORT IMPROVEMENT SINCE ADMISSION. HE ALSO REPORTS BILATERAL FEET PAIN, LEFT BEING WORSE THAN THE RIGHT. HE DENIES INJURY. ON EXAMINATION, HEART IS REGULAR IN RATE AND RHYTHM. BILATERAL LUNGS ARE NOTED WITH DIMINISHED LUNG SOUNDS THROUGHT. HE IS CURRENTLY UTILIZING OXYGEN VIA NASAL CANNULA AT 2L/MIN. ABDOMEN IS ROUND, SOFT, AND NON- TENDER WITH NORMAL BOWEL SOUNDS NOTED IN ALL QUADRANTS. HIS VITALS THIS MORNING ARE 97.8-102-20-94%-116/78. LABS WERE OBTAINED. ABNORMAL LAB VALUES INCLUDE THE FOLLOWING: RBC 4.29, HCT 39.6, PLT COUNT 89, CARBON DIOXIDE 32.7, ALBUMIN 3.2. TODAYS CHEST XRAY REVEALED IMPROVING AERATION OF THE LEFT LOWER LOBE WITH SOME RESIDUAL SUBSEGMENTAL ATELECTASIS PRESENT. HE IS CURRENTLY RECEIVING FORTAZ IV AND LEVAQUIN IV WELL RESPIRATORY TREATMENTS AND SUPPLEMENTAL OXYGEN. WE WILL CONTINUE WITH CURRENT PLAN OF CARE. OTHERWISE, WE WILL FOLLOW UP WITH AM LABS AND CHEST XRAY AND CONTINUE TO MONITOR PATIENT. - Past Medical Family Social History Past Med/Fam/Surg Hx: No changes since H&P Allergies: Allergies acetaminophen [From Percocet] Adverse Reaction (Verified 05/01/18 19:05) ciprofloxacin [From Cipro] Adverse Reaction (Verified 05/01/18 19:05) oxycodone [From Percocet] Adverse Reaction (Verified 05/01/18 19:05) - Review of Systems ROS: No change since H&P - Vital Signs and I&O's Vital Signs: Temperature 98.0 F Pulse Rate [Right Radial] 107 Pulse Rate 98 Respiratory Rate 22 Blood Pressure [Right Arm] 146/72 Blood Pressure [Left Arm] 158/78 Blood Pressure 111/68 O2 Sat by Pulse Oximetry 97 Intake and Output: Intake & Output 05/02/18 05/03/18 05/04/18 05/05/18 11:59 11:59 11:59 11:59 Intake Total 720 / 720 1810 / 1810 1240 / 1240 840 / 840 Output Total 700 / 700 200 / 200 Balance 1610 / 1610 1240 / 1240 840 / 840 - Physical Exam Oriented: Normal Eyes: Normal Ear: Normal Nose: Normal Throat: Normal Respiratory: Right, Left, Wheezes Cardiovascular: Normal. negative: S3, S4, Murmur, Edema : Normal Auscultation: Bowel Sounds: Normal Palpation: Normal Tenderness: Normal Skin: Normal Musculoskeletal: Normal Psychiatric: Normal Mood Description: Calm Affect: Normal Speech Pattern: Clear, Appropriate - Laboratory and Diagnostics Result Diagrams: 05/04/18 04:40 05/04/18 04:40 Labs: 05/02/18 00:15 Sputum - Expectorated Sputum Sputum Culture - Final 05/02/18 00:15 Sputum - Expectorated Sputum - Final 05/01/18 20:03 Blood Blood Culture - Preliminary 05/01/18 19:55 Blood Blood Culture - Preliminary Laboratory WBC 4.2 X10^3/uL (3.6-10.0) 05/04/18 04:40 RBC 4.29 X10^6/uL (4.7-6.0) L 05/04/18 04:40 Hgb 13.5 g/dL (13.5-18.0) 05/04/18 04:40 Hct 39.6 % (42.0-54.0) L 05/04/18 04:40 MCV 92.2 fL (80.0-100.0) 05/04/18 04:40 MCH 31.5 pg (27.0-34.0) 05/04/18 04:40 MCHC 34.2 g/dL (33.0-35.0) 05/04/18 04:40 RDW 13.0 % (11.6-16.5) 05/04/18 04:40 Plt Count 89 X10^3/uL (150.0-450.0) L 05/04/18 04:40 MPV 9.8 fL (7.4-11.0) 05/04/18 04:40 Neut % (Auto) 73.6 % (42.0-75.0) 05/04/18 04:40 Lymph % (Auto) 16.7 % (21.0-51.0) L 05/04/18 04:40 [place] % (Auto) 7.8 % (0.0-13.0) 05/04/18 04:40 Eos % (Auto) 1.7 % (0.9-2.9) 05/04/18 04:40 Baso % (Auto) 0.2 % (0.2-1.0) 05/04/18 04:40 Neut # (Auto) 3.1 x10^3/uL (2.2-4.8) 05/04/18 04:40 Lymph # (Auto) 0.7 X10^3/uL (1.3-2.9) L 05/04/18 04:40 [place] # (Auto) 0.3 x10^3/uL (0.3-0.8) 05/04/18 04:40 Eos # (Auto) 0.1 x10^3/uL (0.0-0.2) 05/04/18 04:40 Baso # (Auto) 0.0 X10^3/uL (0.0-0.1) 05/04/18 04:40 Absolute Nucleated RBC 0.1 /100WBC 05/04/18 04:40 INR Target Range - 05/01/18 20:03 INR 1.11 (0.8-1.3) 05/01/18 20:03 Sample Site Rbra 05/02/18 00:26 ABG pH 7.430 (7.35-7.45) 05/02/18 00:26 ABG pCO2 46.0 mmHg (35.0-45.0) H 05/02/18 00:26 ABG pO2 61.0 mmHg (80.0-100.0) L 05/02/18 00:26 ABG HCO3 30.5 mmol/L (22-26) H* 05/02/18 00:26 ABG O2 Saturation 92.0 % (90-100) 05/02/18 00:26 ABG Base Excess 5.3 mmol/L (-2.0-2.0) H 05/02/18 00:26 Joshua Test Na 05/02/18 00:26 A-a Gradient 31.0 mmHg 05/02/18 00:26 FiO2 21.000 05/02/18 00:26 Blood Gas Comments Josefa abg well-mtf 05/02/18 00:26 Sodium 144 mmol/L (136-145) 05/04/18 04:40 Corrected Sodium TNP 05/04/18 04:40 Potassium 4.2 mmol/L (3.5-5.1) 05/04/18 04:40 Chloride 106 mmol/L (98-107) 05/04/18 04:40 Carbon Dioxide 32.7 mmol/L (21-32) H 05/04/18 04:40 BUN 10 mg/dL (7-18) 05/04/18 04:40 Creatinine 0.84 mg/dL (0.70-1.30) 05/04/18 04:40 Est GFR (MDRD) Af Amer > 60 (>60) 05/04/18 04:40 Est GFR (MDRD) Non-Af > 60 (>60) 05/04/18 04:40 Glucose 93 mg/dL (65-99) 05/04/18 04:40 Hemoglobin A1c 5.5 % 05/03/18 04:40 Calcium 9.4 mg/dL (8.5-10.1) 05/04/18 04:40 Corrected Calcium 10.0 mg/dL (8.5-10.1) 05/04/18 04:40 Magnesium 1.8 mg/dL (1.7-2.9) 05/03/18 04:40 Total Bilirubin 0.60 mg/dL (0.2-1.0) 05/04/18 04:40 AST 28 Units/L (15-37) 05/04/18 04:40 ALT 41 Units/L (12-78) 05/04/18 04:40 Alkaline Phosphatase 55 Units/L (46-116) 05/04/18 04:40 Lactate Dehydrogenase 200 Units/L (85-227) 05/01/18 20:03 Creatine Kinase 170 Units/L (39-308) 05/02/18 05:05 CK-MB (CK-2) 2.7 ng/mL (0-4.0) 05/02/18 05:05 CK/CKMB % Calc 1.6 % (<4) 05/02/18 05:05 Troponin I 0.02 ng/mL (0-1.5) 05/02/18 05:05 Total Protein 6.7 g/dL (6.4-8.2) 05/04/18 04:40 Albumin 3.2 g/dL (3.4-5.0) L 05/04/18 04:40 Globulin 3.5 g/dL (2.5-4.5) 05/04/18 04:40 Albumin/Globulin Ratio 0.9 Ratio (1.1-2.1) L 05/04/18 04:40 Specimen Type Clean catch urine 05/01/18 20:27 Urine Color Yellow (YELLOW) 05/01/18 20: Urine Appearance Clear (CLEAR) 05/01/18 20: Urine pH 8.0 (5.0 - 8.0) 05/01/18 20: Ur Specific [place] 1.015 (1.000-1.030) 05/01/18 20:27 Urine Protein 3+ (NEGATIVE) 05/01/18 20: Urine Glucose (UA) Negative (NEGATIVE) 05/01/18 20: Urine Ketones 1+ (NEGATIVE) 05/01/18 20: Urine Occult Blood 5+ (NEGATIVE) 05/01/18 20: Urine Nitrite Negative (NEGATIVE) 05/01/18 20: Urine Bilirubin Negative (NEGATIVE) 05/01/18 20: Urine Urobilinogen 2+ (NORMAL) 05/01/18 20:27 Ur Leukocyte Esterase 1+ (NEGATIVE) 05/01/18 20:27 Urine RBC Tntc /HPF (NONE SEEN) 05/01/18 20:27 Urine WBC 0-2 /HPF (NONE SEEN) 05/01/18 20:27 Ur Squamous Epith Cells Few /HPF (NEGATIVE) 05/01/18 20:27 Ur Renal Epithelial Cell Rare /HPF (NEGATIVE) 05/01/18 20: Amorphous Sediment 1+ /HPF (NEGATIVE) 05/01/18 20:27 Urine Bacteria Negative /HPF (NEGATIVE) 05/01/18 20:27 Hyaline Casts Rare /LPF (NEGATIVE) 05/01/18 20:27 Urine Mucus Moderate /HPF (NEGATIVE) 05/01/18 20:27 Ur Culture Indicated? No/not indicated 05/01/18 20:27 - Plan (1) Left lower lobe pneumonia Status: Acute Qualifiers: Pneumonia type: due to unspecified organism Qualified Code(s): J18.1 - Lobar pneumonia, unspecified organism Plan: PNEUMONIA PROTOCOL, LEVAQUIN IV DAILY, FORTAZ 1GM IV Q8H, SUPPLEMENTAL OXYGEN, RESPIRATORY TREATMENTS, CONTINUE TO MONITOR (2) Foot pain, bilateral Status: Acute Plan: OBTAIN BILATERAL FOOT XRAYS, CONTINUE TO MONITOR
[2018-05-04] MEDS: NS 1/2 1000 ML IV 1,000 ML IV SCH (21:38)
[2018-05-04] MEDS: VALIUM PO PRN (21:40)
[2018-05-04] MEDS: COLACE CAP 100 MG PO SCH (21:40)
[2018-05-05] MEDS: NS 1/2 1000 ML IV 1,000 ML IV SCH (00:12)
[2018-05-05] MEDS: FORTAZ or TAZICEF VIAL INJ 1 G in NS 100 ML IV + SPIKE MINIBAG* 100 ML IV SCH ×3 (05:29→22:06)
[2018-05-05 05:35] LABS: BASOPHILS % (AUTO) 0.5 % (0.2-1.0); EOSINOPHILS # (AUTO) 0.1 x10^3/uL (0.0-0.2); EOSINOPHILS % (AUTO) 2.9 % (0.9-2.9); HEMATOCRIT 36.3 % (42.0-54.0); HEMOGLOBIN 12.3 g/dL (13.5-18.0); LYMPHOCYTES # (AUTO) 0.8 X10^3/uL (1.3-2.9); LYMPHOCYTES % (AUTO) 21.4 % (21.0-51.0); MEAN CORPUSCULAR HEMOGLOBIN 31.1 pg (27.0-34.0); MEAN CORPUSCULAR VOLUME 91.7 fL (80.0-100.0); MEAN PLATELET VOLUME 9.2 fL (7.4-11.0); MONOCYTES # (AUTO) 0.3 x10^3/uL (0.3-0.8); NEUTROPHILS # (AUTO) 2.5 x10^3/uL (2.2-4.8); NEUTROPHILS % (AUTO) 66.2 % (42.0-75.0); PLATELET COUNT 99 X10^3/uL (150.0-450.0); RED BLOOD COUNT 3.96 X10^6/uL (4.7-6.0); WHITE BLOOD COUNT 3.7 X10^3/uL (3.6-10.0)
[2018-05-05 05:51] LABS: ALANINE AMINOTRANSFERASE 33 Units/L (12-78); ALBUMIN 2.9 g/dL (3.4-5.0); ALKALINE PHOSPHATASE 49 Units/L (46-116); ASPARTATE AMINO TRANSFERASE 21 Units/L (15-37); BLOOD UREA NITROGEN 13 mg/dL (7-18); CALCIUM 9.3 mg/dL (8.5-10.1); CARBON DIOXIDE 36.1 mmol/L (21-32); CHLORIDE 106 mmol/L (98-107); COR CA(FOR HYPOALB) 10.2 mg/dL (8.5-10.1); CREATININE 0.88 mg/dL (0.70-1.30); SODIUM 144 mmol/L (136-145); TOTAL PROTEIN 6.1 g/dL (6.4-8.2); eGFR NON BLACK RACES > 60 (>60)
--- NOTE | 2018-05-05 07:14 | RAD ---
HISTORY: Follow-up left basilar lung density Study: Chest AP portable Comparison: 05/04/2018 Findings: The heart is within normal limits in size. The jose g are normal. The lungs are well inflated with the exception of some persistent subsegmental atelectasis in the left lung base unchanged in appearance f rom the prior examination. The bony thorax is unremarkable. IMPRESSION: Subsegmental atelectasis left lung base unchanged from the prior examination. Reported By:
[2018-05-05] MEDS: XOPENEX 1.25 MG/3 ML NEBULE NEB SCH ×4 (08:35→21:51)
[2018-05-05] MEDS: LEVAQUIN PREMIX IV 750 MG 750 MG/150 ML BAG IV SCH (09:20)
[2018-05-05] MEDS: ROBITUSSIN DM PO SCH ×4 (09:20→22:05)
[2018-05-05] MEDS: MILK OF MAGNESIA PO SCH ×3 (09:20→22:09)
[2018-05-05] MEDS: TEMOVATE CREAM EXT SCH ×2 (09:21→22:07)
[2018-05-05] MEDS ORDERED: NS 1/2 1000 ML IV 1,000 ML IV ONE (16:19)
--- NOTE | 2018-05-05 19:45 | PCM.PROG ---
Progress Note - Progress Note for Day of Date: 05/05/18 - Subjective Subjective: WAS ADMITTED FOR LEFT LOWER LOBE PNEUMONIA. TODAY, HE IS ALERT AND ORIENTED, LYING IN BED ON MORNING ROUNDS. HE CONTINUES WITH COMPLAINTS OF SHORTNESS OF BREATH, BUT CONTINUES TO REPORT IMPROVEMENT SINCE ADMISSION. HE CONTINUES TO COMPLAIN OF LEFT FOOT PAIN. ON EXAMINATION, HEART IS REGULAR IN RATE AND RHYTHM. BILATERAL LUNGS ARE NOTED WITH DIMINISHED LUNG SOUNDS THROUGHT. HE IS CURRENTLY UTILIZING OXYGEN VIA NASAL CANNULA AT 2L/MIN. ABDOMEN IS ROUND, SOFT, AND NON-TENDER WITH NORMAL BOWEL SOUNDS NOTED IN ALL QUADRANTS. HIS VITALS THIS MORNING ARE 98.3-85-20-96%-138/83. LABS WERE OBTAINED. ABNORMAL LAB VALUES INCLUDE THE FOLLOWING: RBC 3.96, HGB 12.3, HCT 36.3, PLT COUNT 99, CARBON DIOXIDE 36.1, TOTAL PROTEIN 6.1, ALBUMIN 2.9. TODAY S CHEST XRAY REVEALED SUBSEGMENTAL ATELECTASIS LEFT LUNG BASE UNCHANGED FROM THE PRIOR EXAMINATION. LEFT FOOT XRAY REVEALED CALCANEAL ENTHESOPHYTES. MILD OSTEOARTHRITIS OF THE 1ST MTP JOINT. HE IS CURRENTLY RECEIVING FORTAZ IV AND LEVAQUIN IV WELL RESPIRATORY TREATMENTS AND SUPPLEMENTAL OXYGEN. WE WILL CONTINUE WITH CURRENT PLAN OF CARE TODAY. OTHERWISE, WE WILL FOLLOW UP WITH AM LABS AND CHEST XRAY AND CONTINUE TO MONITOR PATIENT. - Past Medical Family Social History Past Med/Fam/Surg Hx: No changes since H&P Allergies: Allergies acetaminophen [From Percocet] Adverse Reaction (Verified 05/01/18 19:05) ciprofloxacin [From Cipro] Adverse Reaction (Verified 05/01/18 19:05) oxycodone [From Percocet] Adverse Reaction (Verified 05/01/18 19:05) - Review of Systems ROS: No change since H&P - Vital Signs and I&O's Vital Signs: Temperature 98.2 F Pulse Rate [Right Radial] 82 Pulse Rate 86 Respiratory Rate 20 Blood Pressure [Right Arm] 143/79 Blood Pressure [Left Arm] 158/78 Blood Pressure 111/68 O2 Sat by Pulse Oximetry 98 Intake and Output: Intake & Output 05/03/18 05/04/18 05/05/18 05/06/18 11:59 11:59 11:59 11:59 Intake Total 1810 / 1810 1240 / 1240 2494 / 2494 1140 / 1140 Output Total 200 / 200 Balance 1610 / 1610 1240 / 1240 2494 / 2494 1140 / 1140 - Physical Exam Oriented: Normal Eyes: Normal Ear: Normal Nose: Normal Throat: Normal Respiratory: Right, Left, Wheezes Cardiovascular: Normal. negative: S3, S4, Murmur, Edema : Normal Auscultation: Bowel Sounds: Normal Palpation: Normal Tenderness: Normal Skin: Normal Musculoskeletal: Normal Psychiatric: Normal Mood Description: Calm Affect: Normal Speech Pattern: Clear, Appropriate - Laboratory and Diagnostics Result Diagrams: 05/05/18 04:50 05/05/18 04:50 Labs: 05/02/18 00:15 Sputum - Expectorated Sputum Sputum Culture - Final 05/02/18 00:15 Sputum - Expectorated Sputum - Final 05/01/18 20:03 Blood Blood Culture - Preliminary 05/01/18 19:55 Blood Blood Culture - Preliminary Laboratory WBC 3.7 X10^3/uL (3.6-10.0) 05/05/18 04:50 RBC 3.96 X10^6/uL (4.7-6.0) L 05/05/18 04:50 Hgb 12.3 g/dL (13.5-18.0) L 05/05/18 04:50 Hct 36.3 % (42.0-54.0) L 05/05/18 04:50 MCV 91.7 fL (80.0-100.0) 05/05/18 04:50 MCH 31.1 pg (27.0-34.0) 05/05/18 04:50 MCHC 34.0 g/dL (33.0-35.0) 05/05/18 04:50 RDW 13.0 % (11.6-16.5) 05/05/18 04:50 Plt Count 99 X10^3/uL (150.0-450.0) L 05/05/18 04:50 MPV 9.2 fL (7.4-11.0) 05/05/18 04:50 Neut % (Auto) 66.2 % (42.0-75.0) 05/05/18 04:50 Lymph % (Auto) 21.4 % (21.0-51.0) 05/05/18 04:50 [place] % (Auto) 9.0 % (0.0-13.0) 05/05/18 04:50 Eos % (Auto) 2.9 % (0.9-2.9) 05/05/18 04:50 Baso % (Auto) 0.5 % (0.2-1.0) 05/05/18 04:50 Neut # (Auto) 2.5 x10^3/uL (2.2-4.8) 05/05/18 04:50 Lymph # (Auto) 0.8 X10^3/uL (1.3-2.9) L 05/05/18 04:50 [place] # (Auto) 0.3 x10^3/uL (0.3-0.8) 05/05/18 04:50 Eos # (Auto) 0.1 x10^3/uL (0.0-0.2) 05/05/18 04:50 Baso # (Auto) 0.0 X10^3/uL (0.0-0.1) 05/05/18 04:50 Absolute Nucleated RBC 0.0 /100WBC 05/05/18 04:50 INR Target Range - 05/01/18 20:03 INR 1.11 (0.8-1.3) 05/01/18 20:03 Sample Site Rbra 05/02/18 00:26 ABG pH 7.430 (7.35-7.45) 05/02/18 00:26 ABG pCO2 46.0 mmHg (35.0-45.0) H 05/02/18 00:26 ABG pO2 61.0 mmHg (80.0-100.0) L 05/02/18 00:26 ABG HCO3 30.5 mmol/L (22-26) H* 05/02/18 00:26 ABG O2 Saturation 92.0 % (90-100) 05/02/18 00:26 ABG Base Excess 5.3 mmol/L (-2.0-2.0) H 05/02/18 00:26 Joshua Test Na 05/02/18 00:26 A-a Gradient 31.0 mmHg 05/02/18 00:26 FiO2 21.000 05/02/18 00:26 Blood Gas Comments Josefa abg well-mtf 05/02/18 00:26 Sodium 144 mmol/L (136-145) 05/05/18 04:50 Corrected Sodium TNP 05/05/18 04:50 Potassium 4.0 mmol/L (3.5-5.1) 05/05/18 04:50 Chloride 106 mmol/L (98-107) 05/05/18 04:50 Carbon Dioxide 36.1 mmol/L (21-32) H 05/05/18 04:50 BUN 13 mg/dL (7-18) 05/05/18 04:50 Creatinine 0.88 mg/dL (0.70-1.30) 05/05/18 04:50 Est GFR (MDRD) Af Amer > 60 (>60) 05/05/18 04:50 Est GFR (MDRD) Non-Af > 60 (>60) 05/05/18 04:50 Glucose 94 mg/dL (65-99) 05/05/18 04:50 Hemoglobin A1c 5.5 % 05/03/18 04:40 Calcium 9.3 mg/dL (8.5-10.1) 05/05/18 04:50 Corrected Calcium 10.2 mg/dL (8.5-10.1) H 05/05/18 04:50 Magnesium 1.8 mg/dL (1.7-2.9) 05/03/18 04:40 Total Bilirubin 0.40 mg/dL (0.2-1.0) 05/05/18 04:50 AST 21 Units/L (15-37) 05/05/18 04:50 ALT 33 Units/L (12-78) 05/05/18 04:50 Alkaline Phosphatase 49 Units/L (46-116) 05/05/18 04:50 Lactate Dehydrogenase 200 Units/L (85-227) 05/01/18 20:03 Creatine Kinase 170 Units/L (39-308) 05/02/18 05:05 CK-MB (CK-2) 2.7 ng/mL (0-4.0) 05/02/18 05:05 CK/CKMB % Calc 1.6 % (<4) 05/02/18 05:05 Troponin I 0.02 ng/mL (0-1.5) 05/02/18 05:05 Total Protein 6.1 g/dL (6.4-8.2) L 05/05/18 04:50 Albumin 2.9 g/dL (3.4-5.0) L 05/05/18 04:50 Globulin 3.2 g/dL (2.5-4.5) 05/05/18 04:50 Albumin/Globulin Ratio 0.9 Ratio (1.1-2.1) L 05/05/18 04:50 Specimen Type Clean catch urine 05/01/18 20: Urine Color Yellow (YELLOW) 05/01/18 20: Urine Appearance Clear (CLEAR) 05/01/18 20: Urine pH 8.0 (5.0 - 8.0) 05/01/18 20:27 Ur Specific [place] 1.015 (1.000-1.030) 05/01/18 20: Urine Protein 3+ (NEGATIVE) 05/01/18 20: Urine Glucose (UA) Negative (NEGATIVE) 05/01/18 20: Urine Ketones 1+ (NEGATIVE) 05/01/18 20: Urine Occult Blood 5+ (NEGATIVE) 05/01/18 20: Urine Nitrite Negative (NEGATIVE) 05/01/18 20: Urine Bilirubin Negative (NEGATIVE) 05/01/18 20:27 Urine Urobilinogen 2+ (NORMAL) 05/01/18 20:27 Ur Leukocyte Esterase 1+ (NEGATIVE) 05/01/18 20:27 Urine RBC Tntc /HPF (NONE SEEN) 05/01/18 20:27 Urine WBC 0-2 /HPF (NONE SEEN) 05/01/18 20:27 Ur Squamous Epith Cells Few /HPF (NEGATIVE) 05/01/18 20:27 Ur Renal Epithelial Cell Rare /HPF (NEGATIVE) 05/01/18 20: Amorphous Sediment 1+ /HPF (NEGATIVE) 05/01/18 20:27 Urine Bacteria Negative /HPF (NEGATIVE) 05/01/18 20:27 Hyaline Casts Rare /LPF (NEGATIVE) 05/01/18 20: Urine Mucus Moderate /HPF (NEGATIVE) 05/01/18 20:27 Ur Culture Indicated? No/not indicated 05/01/18 20:27 - Plan (1) Left lower lobe pneumonia Status: Acute Qualifiers: Pneumonia type: due to unspecified organism Qualified Code(s): J18.1 - Lobar pneumonia, unspecified organism Plan: PNEUMONIA PROTOCOL, LEVAQUIN IV DAILY, FORTAZ 1GM IV Q8H, SUPPLEMENTAL OXYGEN, RESPIRATORY TREATMENTS, CONTINUE TO MONITOR (2) Foot pain, bilateral Status: Acute Plan: OBTAIN BILATERAL FOOT XRAYS, CONTINUE TO MONITOR
[2018-05-05] MEDS: COLACE CAP 100 MG PO SCH (22:07)
[2018-05-05] MEDS: VALIUM PO PRN (22:07)
[2018-05-06] MEDS: NS 1/2 1000 ML IV 1,000 ML IV SCH (04:53)
[2018-05-06 05:30] LABS: BASOPHILS % (AUTO) 0.4 % (0.2-1.0); EOSINOPHILS # (AUTO) 0.1 x10^3/uL (0.0-0.2); EOSINOPHILS % (AUTO) 2.1 % (0.9-2.9); HEMATOCRIT 36.9 % (42.0-54.0); HEMOGLOBIN 12.7 g/dL (13.5-18.0); LYMPHOCYTES # (AUTO) 0.9 X10^3/uL (1.3-2.9); LYMPHOCYTES % (AUTO) 19.8 % (21.0-51.0); MEAN CORPUSCULAR HEMOGLOBIN 31.5 pg (27.0-34.0); MEAN CORPUSCULAR HGB CONC 34.4 g/dL (33.0-35.0); MEAN CORPUSCULAR VOLUME 91.5 fL (80.0-100.0); MEAN PLATELET VOLUME 8.7 fL (7.4-11.0); MONOCYTES # (AUTO) 0.5 x10^3/uL (0.3-0.8); MONOCYTES % (AUTO) 10.7 % (0.0-13.0); NEUTROPHILS # (AUTO) 2.9 x10^3/uL (2.2-4.8); PLATELET COUNT 111 X10^3/uL (150.0-450.0); RED BLOOD COUNT 4.04 X10^6/uL (4.7-6.0); WHITE BLOOD COUNT 4.4 X10^3/uL (3.6-10.0)
[2018-05-06 05:52] LABS: ALANINE AMINOTRANSFERASE 29 Units/L (12-78); ALKALINE PHOSPHATASE 53 Units/L (46-116); ASPARTATE AMINO TRANSFERASE 20 Units/L (15-37); BLOOD UREA NITROGEN 10 mg/dL (7-18); CARBON DIOXIDE 37.6 mmol/L (21-32); CHLORIDE 106 mmol/L (98-107); COR CA(FOR HYPOALB) 9.8 mg/dL (8.5-10.1); CREATININE 0.89 mg/dL (0.70-1.30); SODIUM 145 mmol/L (136-145); TOTAL PROTEIN 6.4 g/dL (6.4-8.2); eGFR NON BLACK RACES > 60 (>60)
--- NOTE | 2018-05-06 06:11 | RAD ---
Examination: AP chest History: Pneumonia Comparison 05/05/2018 Findings: Continued normal heart size. Persistent infiltrate/atelectasis left lower lung with no deve loping consolidation, pulmonary edema or pneumothorax. Impression: No change in appearance of the chest since 1 day earlier. Reported By:
[2018-05-06] MEDS: FORTAZ or TAZICEF VIAL INJ 1 G in NS 100 ML IV + SPIKE MINIBAG* 100 ML IV SCH (06:28)
[2018-05-06] MEDS: MILK OF MAGNESIA PO SCH ×2 (08:20→08:21)
[2018-05-06] MEDS: ROBITUSSIN DM PO SCH (08:20)
[2018-05-06] MEDS: LEVAQUIN PREMIX IV 750 MG 750 MG/150 ML BAG IV SCH (08:20)
[2018-05-06] MEDS: TEMOVATE CREAM EXT SCH (08:23)
[2018-05-06] MEDS: XOPENEX 1.25 MG/3 ML NEBULE NEB SCH (09:15)
[2018-05-06 11:56] VITALS: BP 161/86
--- NOTE | 2018-05-26 23:48 | DR.CARTERD ---
- Discharge Summary for: Discharge Summary for Date of:: 05/06/18 - Admission Date Date of Admission: 05/01/18 - Admission Diagnoses Admission Diagnosis: (1) Left lower lobe pneumonia - Discharge Date Discharge Date: 05/06/18 - Discharge Diagnoses Discharge Diagnosis: (1) Left lower lobe pneumonia (2) Foot pain, bilateral - Hospital Course Hospital Course: DAY ONE, MR. DALEY IS A 73 YEAR OLD PATIENT OF OURS WHO PRESENTED TO THE EMERGENCY ROOM WITH COMPLAINTS OF SHORTNESS OF BREATH AND DIFFICULTY BREATHING. ASSOCIATED LEFT ARM PAIN AND DIFFICULTY WALKING WAS REPORTED BY PATIENT'S SPOUSE. SHE ALSO REPORTED THAT HIS FACE HAD BEEN VERY RED. PATIENT HAD A HISTORY SIGNIFICANT FOR THROAT CANCER AND ALS WHICH WAS DIAGNOSED EIGHT MONTHS PRIOR. ON ARRIVAL, VITALS WERE 102.2-90-20-93%-111/68. LABS WERE OBTAINED. ABNORMAL LAB VALUES INCLUDED THE FOLLOWING: WBC 10.1, RBC 4.59, HCT 41.7, PLT COUNT 89, GLUCOSE 106, MAGNESIUM 1.3, CREATINE KINASE 313. ABG REVEALED PH 7.430 , PC02 46, P02 61, HC03 30.5, OXYGEN SATURATION 92, BASE EXCESS 5.3. URINALYSIS REVEALED RBC TNTC, WBC 0-2, LEUKOCYTES 1+, BACTERIA NEGATIVE. A CHEST XRAY WAS OBTAINED AND REVEALED QUESTIONABLE LEFT LOWER LOBE OPACITY. C-SPINE WAS OBTAINED DUE TO COMPLAINTS OF LEFT ARM PAIN AND NECK PAIN. IT REVEALED MULTILEVEL DEGENERATIVE DISC DISEASE. EKG REVEALED ATRIAL FIBRILLATION WITH HR 109. HE WAS GIVEN TYLENOL FOR FEVER, MAGNESIUM SULFATE 1GM IV, TORADOL 30MG IV X 1 DOSE, AND A NORMAL SALINE BOLUS IN THE ER. HE WAS THEN STARTED ON NS AT 75ML/HR, ROCEPHIN 1GM IV DAILY, AND DOXYCYCLINE 100MG IV Q12H. HE WAS ADMITTED TO THE HOSPITAL FOR FURTHER EVALUATION AND TREATMENT OF LEFT LOWER LOBE PNEUMONIA. DAY TWO, PATIENT WAS ALERT AND ORIENTED, LYING IN BED ON MORNING ROUNDS. HE CONTINUED WITH COMPLAINTS OF SHORTNESS OF BREATH, BUT REPORTED THAT IT HAD IMPROVED SLIGHTLY SINCE ADMISSION. ON EXAMINATION, HEART WAS REGULAR IN RATE AND RHYTHM. BILATERAL LUNGS WERE NOTED WITH DIMINISHED LUNG SOUNDS THROUGHOUT. HE CONTINUED ON SUPPLEMENTAL OXYGEN VIA NASAL CANNULA AT 2L/MIN. ABDOMEN WAS ROUND, SOFT, AND NON-TENDER WITH NORMAL BOWEL SOUNDS NOTED IN ALL QUADRANTS. HIS VITALS WERE 97.6-78-20-96%-113/53. LABS WERE OBTAINED. ABNORMAL LAB VALUES INCLUDED THE FOLLOWING: RBC 3.87, HGB 12.3, HCT 35.7, PLT COUNT 64, GLUCOSE 169 , MAGNESIUM 1.5, TOTAL PROTEIN 5.5, ALBUMIN 2.7. CHEST XRAY REVEALED INCREASING OPACITY LEFT BASE, ATELECTASIS VERSUS PNEUMONIA. HE WAS RECEIVING ROCEPHIN AND DOXYCYCLINE WELL RESPIRATORY TREATMENTS AND SUPPLEMENTAL OXYGEN. WE CONTINUED WITH TREATMENT AND REPLACED HIS MAGNESIUM. DAY THREE, MR. DALEY CONTINUED TREATMENT FOR LEFT LOWER LOBE PNEUMONIA. HE WAS ALERT AND ORIENTED, LYING IN BED ON MORNING ROUNDS. HE CONTINUED WITH COMPLAINTS OF SHORTNESS OF BREATH. HIS VITALS WERE 98.1-86-20-96%-137/87. LABS WERE OBTAINED. ABNORMAL LAB VALUES INCLUDED THE FOLLOWING: RBC 4.17, HGB 13.1, HCT 38.4, PLT COUNT 77, CARBON DIOXIDE 33.2, ALBUMIN 3.2. CHEST XRAY REVEALED PERSISTENT LEFT BASAL INFILTRATE WITH SUSPECT DEVELOPING PROCESS RIGHT LOWER LUNG WELL. HE CONTINUED ON ROCEPHIN AND DOXYCYCLINE WELL RESPIRATORY TREATMENTS AND SUPPLEMENTAL OXYGEN. WE DISCONTINUED THOSE ANTIBIOTICS AND STARTED FORTAZ IV AND LEVAQUIN IV. DAY FOUR, HE CONTINUED WITH COMPLAINTS OF SHORTNESS OF BREATH, BUT CONTINUED TO REPORT IMPROVEMENT SINCE ADMISSION. HE ALSO REPORTED BILATERAL FEET PAIN, LEFT BEING WORSE THAN THE RIGHT. HE DENIED INJURY. HIS VITALS WERE 97.8-102-20-94%- 116/78. LABS WERE OBTAINED. ABNORMAL LAB VALUES INCLUDED THE FOLLOWING: RBC 4.29 , HCT 39.6, PLT COUNT 89, CARBON DIOXIDE 32.7, ALBUMIN 3.2. CHEST XRAY REVEALED IMPROVING AERATION OF THE LEFT LOWER LOBE WITH SOME RESIDUAL SUBSEGMENTAL ATELECTASIS PRESENT. WE CONTINUED FORTAZ IV AND LEVAQUIN IV WELL RESPIRATORY TREATMENTS AND SUPPLEMENTAL OXYGEN. WE CONTINUED TO MONITOR PATIENT. DAY FIVE, MR. DALEY CONTINUED WITH INTERMITTENT SHORTNESS OF BREATH. HE CONTINUED TO COMPLAIN OF LEFT FOOT PAIN. HIS VITALS WERE 98.3-85-20-96%-138/83. LABS WERE OBTAINED. ABNORMAL LAB VALUES INCLUDED THE FOLLOWING: RBC 3.96, HGB 12.3, HCT 36.3, PLT COUNT 99, CARBON DIOXIDE 36.1, TOTAL PROTEIN 6.1, ALBUMIN 2.9. CHEST XRAY REVEALED SUBSEGMENTAL ATELECTASIS LEFT LUNG BASE UNCHANGED FROM THE PRIOR EXAMINATION. LEFT FOOT XRAY REVEALED CALCANEAL ENTHESOPHYTES; MILD OSTEOARTHRITIS OF THE 1ST MTP JOINT. WE CONTINUED FORTAZ IV AND LEVAQUIN IV WELL RESPIRATORY TREATMENTS AND SUPPLEMENTAL OXYGEN. DAY SIX, MR. DALEY REPORTED HE WAS FEELING BETTER. NO ACUTE DISTRESS WAS NOTED. HE DENIED SHORTNESS OF BREATH AND REPORTED THAT LEFT FOOT PAIN HAD IMPROVED. ON AUSCULTATION, LUNGS WERE NOTED WITH SCATTERED RHONCHI TO UPPER LOBES, IMPROVED FROM ADMISSION. VITAL SIGNS STABLE. LABS WNL. WE PLANNED FOR DISCHARGE. INSTRUCTIONS FOR MEDICATIONS AND FOLLOW UP WERE DISCUSSED WITH PATIENT AND FAMILY, BOTH VOICED UNDERSTANDING. PATIENT DISCHARGED HOME IN STABLE CONDITION WITH FAMILY. - Discharge Medications Discharge Medications: Home Medication List NK 05/02/18 [History] Prescriptions: famotidine [Pepcid] 20 mg PO BID #60 tab 05/24/18 fluconazole [Diflucan] 200 mg PO DAILY #10 tab 05/24/18 hyoscyamine sulfate 10 ml PO QID PRN #240 ml 05/24/18 ketorolac 10 mg PO Q6H PRN #20 tab 05/24/18 pantoprazole [Protonix] 40 mg PO BID #60 tab 05/24/18 - Discharge Disposition Discharge Disposition: PATIENT IS TO FOLLOW UP IN OUR OFFICE IN ONE WEEK.
== END 2018-05-06 12:30 | disposition home or self-care (01) | DRG 194 ==
LOC: MED/SURG 19:03 → ER 19:03 → MED/SURG 05-02 01:20
PROVIDERS: ADMIT Obstetrics & Gynecology Obstetrics; ATTEND Internal Medicine
DX: R06.02 Shortness of breath; M79.602 Pain in left arm; M06.80 Other specified rheumatoid arthritis, unspecified site; I48.91 Unspecified atrial fibrillation; M54.2 Cervicalgia; R13.11 Dysphagia, oral phase; R94.31 Abnormal electrocardiogram [ECG] [EKG]; M79.672 Pain in left foot; J18.8 Other pneumonia, unspecified organism; R26.89 Other abnormalities of gait and mobility; M79.671 Pain in right foot; G12.21 Amyotrophic lateral sclerosis
CPT/HCPCS: 36415; 36600; 71010; 71020; 71045; 71046; 72040; 73630; 80048; 80053; 81001; 82550; 82553; 82803; 83036; 83615; 83735; 84484; 85025; 85610; 87040; 87070; 87205; 92526; 92610; 93005; 93010; 94640; 94760; 96365; 96367; 96374; 96375; 97110; 97116; 97162; 99284; A4222; G0378; J0696; J0713; J1885; J1956; J3475; J3490; J7030; J7050

== ENCOUNTER 2018-05-17 01:04 | Inpatient (IN) ==
[2018-05-17 01:40] LABS: BASOPHILS % (AUTO) 0.4 % (0.2-1.0); EOSINOPHILS # (AUTO) 0.1 x10^3/uL (0.0-0.2); EOSINOPHILS % (AUTO) 1.2 % (0.9-2.9); HEMATOCRIT 40.7 % (42.0-54.0); HEMOGLOBIN 13.8 g/dL (13.5-18.0); LYMPHOCYTES # (AUTO) 0.8 X10^3/uL (1.3-2.9); LYMPHOCYTES % (AUTO) 14.4 % (21.0-51.0); MEAN CORPUSCULAR HEMOGLOBIN 30.8 pg (27.0-34.0); MEAN CORPUSCULAR VOLUME 90.6 fL (80.0-100.0); MEAN PLATELET VOLUME 8.6 fL (7.4-11.0); MONOCYTES # (AUTO) 0.5 x10^3/uL (0.3-0.8); MONOCYTES % (AUTO) 8.9 % (0.0-13.0); NEUTROPHILS % (AUTO) 75.1 % (42.0-75.0); PLATELET COUNT 129 X10^3/uL (150.0-450.0); RED BLOOD COUNT 4.49 X10^6/uL (4.7-6.0); RED CELL DISTRIBUTION WIDTH 12.9 % (11.6-16.5); WHITE BLOOD COUNT 5.3 X10^3/uL (3.6-10.0)
--- NOTE | 2018-05-17 01:48 | RAD ---
Chest, one view Indication: Chest pain Comparison: 05/06/2018 Findings: The heart is normal in size. There is persistent but improved atelectasis of the left lung base. No new focal infiltrate, significant effusion or pneumothorax is identified. There is no acute osseous abnormality. Impression: No acute cardiopulmonary abnormality. Reported By:
[2018-05-17 01:55] LABS: BLOOD UREA NITROGEN 15 mg/dL (7-18); CALCIUM 9.6 mg/dL (8.5-10.1); CARBON DIOXIDE 34.7 mmol/L (21-32); CHLORIDE 100 mmol/L (98-107); CREATININE 0.95 mg/dL (0.70-1.30); SODIUM 140 mmol/L (136-145); TROPONIN I < 0.02 ng/mL (0-1.5); eGFR NON BLACK RACES > 60 (>60)
[2018-05-17] MEDS: NS 1000 ML 1,000 ML IV SCH ×3 (02:05→20:15)
--- NOTE | 2018-05-17 02:06 | DR.GENAD ---
HPI - PCP Primary Care Physician: FERNANDA - Complaint/Symptoms Chief Complaint:: PT STATES" MY BACK AND SHOULERS HURT AND MY CHEST. I GAVE MYSELF A ENEMA LAST NIGHT. I HAVE ALS AND I GET CHOKED EASY" - Source History Provided: Patient - Mode of Arrival Mode of Arrival: Ambulatory - Timing Onset of Chief Complaint: 05/16/18 PMH - PMH Past Medical History: Yes Past Medical History: Anxiety, Arthritis, Kidney Stones Past Medical History Comment: ALS Past Surgical History: Yes Surgical History: Appendectomy, Cholecystectomy, Lithotripsy, Other - Family History History of Family Medical Conditions: Yes Family Medical History: Diabetes Mellitus, Cancer, [place] - Social History Does patient currently use any type of tobacco product: No Have you used tobacco products in the last 12 months: No Type of Tobacco Use: None Does any household member use tobacco: No Alcohol Use: None Do you use any recreational Drugs:: No Lives With: Family Lives Where: Home - infectious screening In the last 2 months have you had wt loss of >10#?: NO Have you had fever, night sweats or hemotysis?: No Have you traveled outside the country in the last 6 months?: No Isolation: Standard ROS - Review of Systems Eyes: No Symptoms Reported ENTM: No Symptoms Reported Respiratoy: No Symptoms Reported Cardiovascular: No Symptoms Reported Gastrointestinal/Abdominal: No Symptoms Reported Genitourinary: No Symptoms Reported Neurological: No Symptoms Reported Musculoskeletal: No Symptoms Reported Integumentary: No Symptoms Reported Hematologic/Lymphatic: No Symptoms Reported Endocrine: No Symptoms Reported, Excessive Sweating Psychiatric: No Symptoms Reported All Other Systems: Reviewed and Negative PE - General Limitations: No Limitations General Appearance: Alert - Head Head Exam: Normal Inspection, Atraumatic - Eyes Eye exam: Normal Appearance, PERRL, EOMI - ENT ENT Exam: Normal Exam External Ear Exam: Normal External Inspection TM/Canal Exam: Bilateral Normal Nose Exam: Normal Nose Exam, Sinus Tenderness Mouth Exam: Normal Inspection Throat Exam: Normal Inspection - Neck Neck Exam: Normal Inspection, Full ROM - Chest Chest Inspection: Normal Inspection - Respiratory Respiratory Exam: Normal Lung Sounds Bilat Respiratory Exam: Bilateral Clear to Auscultation - Vital Signs Vitals: Temperature 97.9 F Pulse Rate 86 Respiratory Rate 20 Blood Pressure [Right Arm] 161/86 Blood Pressure [Left Arm] 158/78 Blood Pressure 176/100 O2 Sat by Pulse Oximetry 97 Course - Reevaluation 1st: Unchanged - Consultation Called: 03:00 (Dr Toney agreed to admit patient) ROR - Labs Reviewed Result Diagrams: 05/17/18 01:30 05/17/18 01:30 - XRAY XRAY Interpreted by: Radiologist (Abdomen:There is diffuse gas throughout the colon as well as small bowel with bowel gas seen to the level of the rectum, suggestive for generalized ileus. No abnormally dilated bowel loops are currently seen to suggest obstruction. No pneumatosis or free intraperitoneal air is identified. There are multiple round calcified densities projecting over the loer pelvis, which measure up to 1.4cm in size, possible representing bladder stones, An additional 5mm radiopaque density projects over the left lower abdomen, which does not appear to represent a renal stone and is of uncertain clinical significance. Surgical clips projecting over the right upper quadrant noted. Imaged osseous structures are grossly intact.) - Labs Reviewed Laboratory: WBC 5.3 X10^3/uL (3.6-10.0) 05/17/18 01:30 RBC 4.49 X10^6/uL (4.7-6.0) L 05/17/18 01:30 Hgb 13.8 g/dL (13.5-18.0) 05/17/18 01:30 Hct 40.7 % (42.0-54.0) L 05/17/18 01:30 MCV 90.6 fL (80.0-100.0) 05/17/18 01:30 MCH 30.8 pg (27.0-34.0) 05/17/18 01:30 MCHC 34.0 g/dL (33.0-35.0) 05/17/18 01:30 RDW 12.9 % (11.6-16.5) 05/17/18 01:30 Plt Count 129 X10^3/uL (150.0-450.0) L 05/17/18 01:30 MPV 8.6 fL (7.4-11.0) 05/17/18 01:30 Neut % (Auto) 75.1 % (42.0-75.0) H 05/17/18 01:30 Lymph % (Auto) 14.4 % (21.0-51.0) L 05/17/18 01:30 [place] % (Auto) 8.9 % (0.0-13.0) 05/17/18 01:30 Eos % (Auto) 1.2 % (0.9-2.9) 05/17/18 01:30 Baso % (Auto) 0.4 % (0.2-1.0) 05/17/18 01:30 Neut # (Auto) 4.0 x10^3/uL (2.2-4.8) 05/17/18 01:30 Lymph # (Auto) 0.8 X10^3/uL (1.3-2.9) L 05/17/18 01:30 [place] # (Auto) 0.5 x10^3/uL (0.3-0.8) 05/17/18 01:30 Eos # (Auto) 0.1 x10^3/uL (0.0-0.2) 05/17/18 01:30 Baso # (Auto) 0.0 X10^3/uL (0.0-0.1) 05/17/18 01:30 Absolute Nucleated RBC 0.0 /100WBC 05/17/18 01:30 INR Target Range - 05/17/18 01:30 INR 0.99 (0.8-1.3) 05/17/18 01:30 APTT 32.5 SECONDS (22.9-36.5) 05/17/18 01:30 PTT Comment - 05/17/18 01:30 Sodium 140 mmol/L (136-145) 05/17/18 01:30 Corrected Sodium TNP 05/17/18 01:30 Potassium 3.6 mmol/L (3.5-5.1) 05/17/18 01:30 Chloride 100 mmol/L (98-107) 05/17/18 01:30 Carbon Dioxide 34.7 mmol/L (21-32) H 05/17/18 01:30 BUN 15 mg/dL (7-18) 05/17/18 01:30 Creatinine 0.95 mg/dL (0.70-1.30) 05/17/18 01:30 Est GFR (MDRD) Af Amer > 60 (>60) 05/17/18 01:30 Est GFR (MDRD) Non-Af > 60 (>60) 05/17/18 01:30 Glucose 103 mg/dL (65-99) H 05/17/18 01:30 Calcium 9.6 mg/dL (8.5-10.1) 05/17/18 01:30 Corrected Calcium TNP 05/17/18 01:30 Total Bilirubin 0.70 mg/dL (0.2-1.0) 05/17/18 01:30 AST 52 Units/L (15-37) H 05/17/18 01:30 ALT 35 Units/L (12-78) 05/17/18 01:30 Alkaline Phosphatase 59 Units/L (46-116) 05/17/18 01:30 Creatine Kinase 510 Units/L (39-308) H 05/17/18 01:30 CK-MB (CK-2) 12.8 ng/mL (0-4.0) H* 05/17/18 01:30 CK/CKMB % Calc 2.5 % (<4) 05/17/18 01:30 Troponin I < 0.02 ng/mL (0-1.5) 05/17/18 01:30 C-Reactive Protein 2.30 mg/L (0-3.0) 05/17/18 01:30 B-Natriuretic Peptide 14.3 pg/mL (0-79) 05/17/18 01:30 Total Protein 7.0 g/dL (6.4-8.2) 05/17/18 01:30 Albumin 3.6 g/dL (3.4-5.0) 05/17/18 01:30 Globulin 3.4 g/dL (2.5-4.5) 05/17/18 01:30 Albumin/Globulin Ratio 1.1 Ratio (1.1-2.1) 05/17/18 01:30 H. pylori IgG Antibody Positive (NEGATIVE) A 05/17/18 01:30 - Diagnosis Discharge Problem: Ileus, unspecified, Chest pain, rule out acute myocardial infarction - Discharge Plan Disposition: ADMITTED INPATIENT Condition: Stable - Follow ups/Referrals Follow ups/Referrals: NFD,None [Primary Care Provider] - 3 days - Instructions
[2018-05-17 02:17] LABS: ALANINE AMINOTRANSFERASE 35 Units/L (12-78); ALBUMIN 3.6 g/dL (3.4-5.0); ALKALINE PHOSPHATASE 59 Units/L (46-116); ASPARTATE AMINO TRANSFERASE 52 Units/L (15-37); CKMB % 2.5 % (<4); CREATINE KINASE 510 Units/L (39-308)
[2018-05-17 02:19] LABS: CREATINE KINASE MB 12.8 ng/mL (0-4.0)
--- NOTE | 2018-05-17 02:23 | RAD ---
Abdomen, one view Indication: Abdominal pain Comparison: None Findings: There is diffuse gas throughout the colon as well as small bowel with bowel gas seen to the level of the rectum, suggestive for generalized ileus. No abnormally dilated bowel loops are current ly seen to suggest obstruction. No pneumatosis or free intraperitoneal air is identified. There are m ultiple round calcified densities projecting over the lower pelvis, which measure up to 1.4 cm in siz e, possibly representing bladder stones. An additional 5 mm radiopaque density projects over the left lower abdomen, which does not appear to represent a renal stone and is of uncertain clinical signifi cance. Surgical clips projecting over the right upper quadrant noted. Imaged osseous structures are g rossly intact. Impression: Imaging findings suggestive for generalized ileus, as above. No current convincing evidence for bowel obstruction. Multiple rounded densities projecting over the lower pelvis which measure up to 1.4 cm in size, possi suze representing bladder stones. Reported By:
[2018-05-17] MEDS ORDERED: ATIVAN TAB 0.5 MG ONE (03:11)
[2018-05-17] MEDS ORDERED: ATIVAN TAB 0.5 MG PO ONE (03:11)
[2018-05-17 04:38] VITALS: BMI 17.6
[2018-05-17 06:00] LABS: CHOL/HDL RATIO 2.4 (0.0-5.0)
[2018-05-17 06:38] LABS: BILIRUBIN,URINE NEGATIVE (NEGATIVE); BLOOD/HEMOGLOBIN,URINE 5+ (NEGATIVE); GLUCOSE, URINE NEGATIVE (NEGATIVE); KETONES,URINE NEGATIVE (NEGATIVE); LEUKOCYTE ESTERASE ,URINE 1+ (NEGATIVE); NITRITES,URINE NEGATIVE (NEGATIVE); PROTEIN,URINE 2+ (NEGATIVE); UROBILINOGEN,URINE NORMAL (NORMAL)
[2018-05-17 06:46] LABS: APPEARANCE,URINE HAZY (CLEAR); COLOR,URINE YELLOW (YELLOW)
[2018-05-17 06:47] LABS: BACTERIA,URINE NEGATIVE /HPF (NEGATIVE); RBC,URINE 30-50 /HPF (NONE SEEN); SQUAMOUS EPITHELIAL CELL,UR RARE /HPF (NEGATIVE)
[2018-05-17 07:56] LABS: CKMB % 2.6 % (<4); TROPONIN I 0.02 ng/mL (0-1.5)
[2018-05-17 08:17] LABS: CREATINE KINASE MB 8.7 ng/mL (0-4.0)
[2018-05-17] MEDS: LEVSIN/MAALOX/LIDOC VISC PO SCH ×4 (10:02→20:14)
[2018-05-17] MEDS: PEPCID 20 MG IV PREMIX* 20 MG/50 ML BAG IV SCH ×2 (10:03→20:14)
[2018-05-17] MEDS: PROTONIX INJ 40 MG VIAL IVP SCH ×2 (10:03→20:14)
--- NOTE | 2018-05-17 10:25 | DR.H&P ---
H&P - History & Physical for Day of: H&P Date: 05/17/18 - Chief Complaint Chief Complaint: chest pain - History of Present Illness History of Present Illness: is a 73 year old patient of ours who presented to the emergency room with reports of chest pain. Patient reports pain started yesterday with associated pain to back and shoulders. Patient also reports he has been getting choked easily. Medical History includes: [place], ALS, Pericarditis, Pneumonia, Constipation, Kidney Stones, Rheumatoid Arthritis , Back Pain, Throat/Skin CA, Anxiety. On arrival, vitals were 97.9, 86, 20, 97% RA, 176/100. Labs were obtained. Abnormal lab values include the following: RBC 4.49, Hct 40.7, Plt Count 129, Carbon Dioxide 34.7, Glucose 103, AST 52, Creatine Kinase 510, CKMB 12.8, H.Pylori Positive. Urinalysis: Hazy, Protein 2+ , Occult Blood 5+, Leuk Est 1+, RBC 30-50, WBC 0-2. EKG revealed: Sinus Rhythm. Rate=85. Chest X-Ray revealed: No acute cardiopulmonary abnormality. KUB revealed: Imaging findings suggestive for generalized ileus, as above. No current convincing evidence for bowel obstruction. Multiple rounded densities projecting over the lower pelvis which measure up to 1.4 cm in size, possibly representing bladder stones. Patient admitted to the hospital as observation for further evaluation and treatment. Will obtain serial cardiac enzymes and EKGs. We will start Pepcid IV, protonix IV, and GI cocktail. Patient placed on continuous credentials specialist and will follow up with am labs and will continue to monitor. - Past Medical History Past Medical History: Anxiety, Arthritis, Kidney Stones Additional Medical History: ALS, PERICARDITIS, CONSTIPATION, KIDNEY STONES, CHRONIC BACK PAIN, RHEUMATOID ARTHRITIS, THROAT CANCER - Past Surgical History Surgical History: Appendectomy, Cholecystectomy, Lithotripsy - Family History Family Medical History: Diabetes Mellitus, Cancer, [place] - Social History Does patient currently use any type of tobacco product: No Have you used tobacco products in the last 12 months: No Type of Tobacco Use: None Does any household member use tobacco: No Alcohol Use: None Drug Use: None - Medications Home Medications: acetaminophen [From Percocet] Adverse Reaction (Verified 05/01/18 19:05) ciprofloxacin [From Cipro] Adverse Reaction (Verified 05/01/18 19:05) oxycodone [From Percocet] Adverse Reaction (Verified 05/01/18 19:05) - Review of Systems Constitutional: No Symptoms Reported Eyes: No Symptoms Reported ENT: No Symptoms Reported Respiratory: Shortness of Breath Cardiovascular: Chest Pain Gastrointestinal: No Symptoms Reported Genitourinary: No Symptoms Reported Musculoskeletal: Shoulder Pain, Back Pain Skin: No Symptoms Reported Neurological: No Symptoms Reported - Physical Exam Vital Signs: Temperature 99 F Pulse Rate [Right] 80 Pulse Rate 86 Respiratory Rate 15 Blood Pressure [Right Arm] 168/89 Blood Pressure [Left Arm] 158/78 Blood Pressure 176/100 O2 Sat by Pulse Oximetry 100 Oriented: Normal Eyes: Normal Ear: Normal Nose: Normal Throat: Normal Respiratory: Diminished Throughout Cardiovascular: Normal. negative: S3, S4, Murmur : Normal Auscultation: Bowel Sounds: Normal Palpation: Normal Tenderness: Normal Skin: Normal Musculoskeletal: Right, Left, Shoulder, Back:Thoracic, Tender Psychiatric: Normal Mood Description: Calm Affect: Normal Speech Pattern: Clear - Assessment/Plan (1) Chest pain, rule out acute myocardial infarction Status: Acute Plan: admit, telemetry, supplemental oxygen, serial cardiac enzymes and ekg, continue to monitor (2) H. pylori infection Status: Acute Plan: pepcid iv, protonix iv, gi cocktail, continue to monitor (3) Ileus, unspecified Status: Acute Plan: npo, continue to monitor - Allergies Allergies/Adverse Reactions: Allergies Allergy/AdvReac Type Severity Reaction Status Date / Time acetaminophen [From Percocet] AdvReac Verified 05/01/18 19:05 ciprofloxacin [From Cipro] AdvReac Verified 05/01/18 19:05 oxycodone [From Percocet] AdvReac Verified 05/01/18 19:05
[2018-05-17] MEDS ORDERED: XANAX PO ONE (11:34)
[2018-05-17 14:27] LABS: CKMB % 2.9 % (<4); TROPONIN I 0.02 ng/mL (0-1.5)
[2018-05-17 14:32] LABS: CREATINE KINASE MB 6.6 ng/mL (0-4.0)
[2018-05-17] MEDS ORDERED: RESTORIL CAP 15 MG PO ONE (19:28)
[2018-05-17] MEDS: RESTORIL CAP 15 MG PO PRN (20:15)
[2018-05-18] MEDS: NS 1000 ML 1,000 ML IV SCH ×3 (02:03→20:30)
[2018-05-18 06:00] LABS: BASOPHILS % (AUTO) 1.1 % (0.2-1.0); EOSINOPHILS # (AUTO) 0.1 x10^3/uL (0.0-0.2); EOSINOPHILS % (AUTO) 1.8 % (0.9-2.9); HEMATOCRIT 41.1 % (42.0-54.0); LYMPHOCYTES # (AUTO) 0.9 X10^3/uL (1.3-2.9); LYMPHOCYTES % (AUTO) 27.5 % (21.0-51.0); MEAN CORPUSCULAR HEMOGLOBIN 31.1 pg (27.0-34.0); MEAN CORPUSCULAR VOLUME 91.4 fL (80.0-100.0); MEAN PLATELET VOLUME 8.9 fL (7.4-11.0); MONOCYTES # (AUTO) 0.3 x10^3/uL (0.3-0.8); MONOCYTES % (AUTO) 8.8 % (0.0-13.0); NEUTROPHILS % (AUTO) 60.8 % (42.0-75.0); PLATELET COUNT 82 X10^3/uL (150.0-450.0); RED BLOOD COUNT 4.49 X10^6/uL (4.7-6.0); RED CELL DISTRIBUTION WIDTH 13.3 % (11.6-16.5); WHITE BLOOD COUNT 3.3 X10^3/uL (3.6-10.0)
[2018-05-18 06:19] LABS: ALANINE AMINOTRANSFERASE 27 Units/L (12-78); ALBUMIN 3.1 g/dL (3.4-5.0); ALKALINE PHOSPHATASE 53 Units/L (46-116); ASPARTATE AMINO TRANSFERASE 35 Units/L (15-37); BLOOD UREA NITROGEN 9 mg/dL (7-18); CALCIUM 8.9 mg/dL (8.5-10.1); CARBON DIOXIDE 34.9 mmol/L (21-32); CHLORIDE 106 mmol/L (98-107); COR CA(FOR HYPOALB) 9.6 mg/dL (8.5-10.1); CREATININE 0.75 mg/dL (0.70-1.30); SODIUM 143 mmol/L (136-145); TOTAL PROTEIN 6.4 g/dL (6.4-8.2); eGFR NON BLACK RACES > 60 (>60)
[2018-05-18] MEDS: PROTONIX INJ 40 MG VIAL IVP SCH ×2 (08:38→20:40)
[2018-05-18] MEDS: LEVSIN/MAALOX/LIDOC VISC PO SCH ×4 (08:38→20:40)
[2018-05-18] MEDS: PEPCID 20 MG IV PREMIX* 20 MG/50 ML BAG IV SCH ×2 (08:38→20:40)
[2018-05-18] MEDS ORDERED: XANAX PO ONE (14:51)
--- NOTE | 2018-05-18 15:53 | CT ---
HISTORY: Abdominal pain Study: CT abdomen pelvis without contrast Comparison: None Technique: Axial noncontrast images with coronal and sagittal reformats. Dose reduction procedures we re used with mA/kv adjusted for body size. The examination is limited due to the lack of intravenous and oral contrast. The examination was performed in this manner at the sole discretion of the vikas pepe caregiver. Findings: The right lung base is clear. There is a small left pleural effusion present. Abnormal parenchymal de nsity abuts the medial posterior pleura in the left lower davon thorax. This could represent atelectas is, pneumonia, or mass. Clinical correlation is recommended. Follow-up examination until clear is rec ommended. If this does not resolve then PET-CT may be required in order to exclude neoplasm. The live r, spleen, adrenal glands, and pancreas are within normal limits to the limitations of an unenhanced examination. The patient appears to be status post cholecystectomy. The kidneys are unobstructed. Russell ateral renal calculi are present multiple on the left and nonobstructing. No ureteral calculi are rupal ntified. Calcific atherosclerotic changes present in a not significantly dilated abdominal aorta. No intraperitoneal or retroperitoneal lymphadenopathy is identified. The appendix is not identified with absolute certainty. There are no secondary signs of appendicitis. There are no findings suggestive o f diverticulitis or colitis. No evidence for small bowel obstruction is identified. Examination of th e pelvis demonstrated multiple large bladder calculi to be present ranging in size from 11 mm to 18 m m. There appear to be 5 stones total. No pelvic masses, pelvic fluid, or pelvic lymphadenopathy is id entified. The prostate is markedly enlarged and calcified measuring 7.3 by 5.6 by 7 cm. No lytic or b lastic skeletal lesions are identified. IMPRESSION: Bilateral nonobstructing renal calculi multiple on the left At least 5 bladder calculi as described Abnormal parenchymal density abutting the posterior and medial pleura inferiorly in the left lower lo be which could represent infiltrate, atelectasis, or neoplasm. If this does not resolve with follow-u p, PET-CT may be required in order to exclude neoplasm. Reported By:
[2018-05-18] MEDS: RESTORIL CAP 15 MG PO PRN (20:44)
[2018-05-19] MEDS: NS 1000 ML 1,000 ML IV SCH ×4 (03:00→19:00)
[2018-05-19 05:53] LABS: BASOPHILS % (AUTO) 0.4 % (0.2-1.0); EOSINOPHILS # (AUTO) 0.1 x10^3/uL (0.0-0.2); EOSINOPHILS % (AUTO) 2.3 % (0.9-2.9); HEMATOCRIT 39.2 % (42.0-54.0); HEMOGLOBIN 13.5 g/dL (13.5-18.0); LYMPHOCYTES # (AUTO) 0.6 X10^3/uL (1.3-2.9); LYMPHOCYTES % (AUTO) 18.4 % (21.0-51.0); MEAN CORPUSCULAR HEMOGLOBIN 30.9 pg (27.0-34.0); MEAN CORPUSCULAR HGB CONC 34.4 g/dL (33.0-35.0); MEAN CORPUSCULAR VOLUME 89.8 fL (80.0-100.0); MEAN PLATELET VOLUME 8.6 fL (7.4-11.0); MONOCYTES # (AUTO) 0.3 x10^3/uL (0.3-0.8); MONOCYTES % (AUTO) 9.1 % (0.0-13.0); NEUTROPHILS # (AUTO) 2.5 x10^3/uL (2.2-4.8); NEUTROPHILS % (AUTO) 69.8 % (42.0-75.0); PLATELET COUNT 95 X10^3/uL (150.0-450.0); RED BLOOD COUNT 4.37 X10^6/uL (4.7-6.0); WHITE BLOOD COUNT 3.5 X10^3/uL (3.6-10.0)
[2018-05-19 06:18] LABS: ALANINE AMINOTRANSFERASE 26 Units/L (12-78); ALKALINE PHOSPHATASE 53 Units/L (46-116); ASPARTATE AMINO TRANSFERASE 28 Units/L (15-37); BLOOD UREA NITROGEN 9 mg/dL (7-18); CALCIUM 8.6 mg/dL (8.5-10.1); CARBON DIOXIDE 39.8 mmol/L (21-32); CHLORIDE 105 mmol/L (98-107); COR CA(FOR HYPOALB) 9.4 mg/dL (8.5-10.1); CREATININE 0.84 mg/dL (0.70-1.30); SODIUM 144 mmol/L (136-145); TOTAL PROTEIN 5.9 g/dL (6.4-8.2); eGFR NON BLACK RACES > 60 (>60)
[2018-05-19] MEDS: LEVSIN/MAALOX/LIDOC VISC PO SCH ×4 (08:05→21:00)
[2018-05-19] MEDS: PEPCID 20 MG IV PREMIX* 20 MG/50 ML BAG IV SCH ×2 (08:05→21:00)
[2018-05-19] MEDS: PROTONIX INJ 40 MG VIAL IVP SCH ×2 (08:05→21:00)
[2018-05-19] MEDS ORDERED: NS 100 ML IV 100 ML IV ONE (10:33)
--- NOTE | 2018-05-19 11:45 | PCM.PROG ---
Progress Note - Progress Note for Day of Date of Exam: 05/18/18 - Subjective Subjective: WAS ADMITTED FOR CHEST PAIN, RULE OUT MYOCARDIAL INFARCTION AND ILEUS. TODAY, HE IS ALERT AND ORIENTED, LYING IN BED ON MORNING ROUNDS. TODAY, HE IS NOTED WITH COMPLAINTS OF SHORTNESS OF BREATH, DIFFUSE ABDOMINAL PAIN, AND LOWER BACK PAIN. HE DENIES CHEST PAIN UPON ROUNDS. ON EXAMINATION, HEART IS REGULAR IN RATE AND RHYTHM. BILATERAL LUNGS ARE NOTED WITH DIMINISHED LUNG SOUNDS THROUGHOUT. ABDOMEN IS FLAT, SOFT, AND NOTED WITH MILD, DIFFUSE ABDOMINAL PAIN ON PALPATION. HIS VITALS TODAY ARE 98.9-74-16-100%-163/74. LABS WERE OBTAINED. ABNORMAL LAB VALUES INCLUDE THE FOLLOWING: WBC 3.3, RBC 4.49, HCT 41.1, PLT COUNT 82, CARBON DIOXIDE 34.9, ALBUMIN 3.1. A SPUTUM CULTURE IS PENDING. TODAY, WE WILL OBTAIN AN ABDOMEN/PELVIS CT WITHOUT CONTRAST. OTHERWISE , WE PLAN TO FOLLOW UP WITH AM LABS AND CONTINUE TO MONITOR PATIENT. - Past Medical Family Social History Past Med/Fam/Surg Hx: No changes since H&P Allergies: Allergies acetaminophen [From Percocet] Adverse Reaction (Verified 05/01/18 19:05) ciprofloxacin [From Cipro] Adverse Reaction (Verified 05/01/18 19:05) oxycodone [From Percocet] Adverse Reaction (Verified 05/01/18 19:05) - Review of Systems ROS: No change since H&P - Vital Signs and I&O's Vital Signs: Temperature 98.9 F Pulse Rate [Right] 82 Pulse Rate 86 Respiratory Rate 12 Blood Pressure [Right Arm] 134/85 Blood Pressure [Left Arm] 158/78 Blood Pressure 176/100 O2 Sat by Pulse Oximetry 96 Intake and Output: Intake & Output 05/16/18 05/17/18 05/18/18 05/19/18 11:59 11:59 11:59 11:59 Intake Total 2942 / 2942 1841 / 1841 Output Total 1450 / 1450 950 / 950 Balance 1492 / 1492 891 / 891 - Physical Exam Oriented: Normal Eyes: Normal Ear: Normal Nose: Normal Throat: Normal Respiratory: Right, Left, Generalized, Diminished Cardiovascular: Normal. negative: S3, S4, Murmur : Normal Auscultation: Bowel Sounds: Normal Palpation: Normal Tenderness: Normal Skin: Normal Musculoskeletal: Right, Left, Shoulder, Back:Thoracic, Tender Psychiatric: Normal Mood Description: Calm Affect: Normal Speech Pattern: Clear, Appropriate - Laboratory and Diagnostics Result Diagrams: 05/19/18 05:32 05/19/18 05:32 Labs: 05/18/18 15:55 Sputum - Expectorated Sputum Sputum Culture - Preliminary 05/18/18 15:55 Sputum - Expectorated Sputum - Final Laboratory WBC 3.5 X10^3/uL (3.6-10.0) L 05/19/18 05:32 RBC 4.37 X10^6/uL (4.7-6.0) L 05/19/18 05:32 Hgb 13.5 g/dL (13.5-18.0) 05/19/18 05:32 Hct 39.2 % (42.0-54.0) L 05/19/18 05:32 MCV 89.8 fL (80.0-100.0) 05/19/18 05:32 MCH 30.9 pg (27.0-34.0) 05/19/18 05:32 MCHC 34.4 g/dL (33.0-35.0) 05/19/18 05:32 RDW 13.0 % (11.6-16.5) 05/19/18 05:32 Plt Count 95 X10^3/uL (150.0-450.0) L 05/19/18 05:32 MPV 8.6 fL (7.4-11.0) 05/19/18 05:32 Neut % (Auto) 69.8 % (42.0-75.0) 05/19/18 05:32 Lymph % (Auto) 18.4 % (21.0-51.0) L 05/19/18 05:32 [place] % (Auto) 9.1 % (0.0-13.0) 05/19/18 05:32 Eos % (Auto) 2.3 % (0.9-2.9) 05/19/18 05:32 Baso % (Auto) 0.4 % (0.2-1.0) 05/19/18 05:32 Neut # (Auto) 2.5 x10^3/uL (2.2-4.8) 05/19/18 05:32 Lymph # (Auto) 0.6 X10^3/uL (1.3-2.9) L 05/19/18 05:32 [place] # (Auto) 0.3 x10^3/uL (0.3-0.8) 05/19/18 05:32 Eos # (Auto) 0.1 x10^3/uL (0.0-0.2) 05/19/18 05:32 Baso # (Auto) 0.0 X10^3/uL (0.0-0.1) 05/19/18 05:32 Absolute Nucleated RBC 0.3 /100WBC 05/19/18 05:32 INR Target Range - 05/17/18 01:30 INR 0.99 (0.8-1.3) 05/17/18 01:30 APTT 32.5 SECONDS (22.9-36.5) 05/17/18 01:30 PTT Comment - 05/17/18 01:30 Sodium 144 mmol/L (136-145) 05/19/18 05:32 Corrected Sodium TNP 05/19/18 05:32 Potassium 3.8 mmol/L (3.5-5.1) 05/19/18 05:32 Chloride 105 mmol/L (98-107) 05/19/18 05:32 Carbon Dioxide 39.8 mmol/L (21-32) H 05/19/18 05:32 BUN 9 mg/dL (7-18) 05/19/18 05:32 Creatinine 0.84 mg/dL (0.70-1.30) 05/19/18 05:32 Est GFR (MDRD) Af Amer > 60 (>60) 05/19/18 05:32 Est GFR (MDRD) Non-Af > 60 (>60) 05/19/18 05:32 Glucose 96 mg/dL (65-99) 05/19/18 05:32 Calcium 8.6 mg/dL (8.5-10.1) 05/19/18 05:32 Corrected Calcium 9.4 mg/dL (8.5-10.1) 05/19/18 05:32 Total Bilirubin 0.60 mg/dL (0.2-1.0) 05/19/18 05:32 AST 28 Units/L (15-37) 05/19/18 05:32 ALT 26 Units/L (12-78) 05/19/18 05:32 Alkaline Phosphatase 53 Units/L (46-116) 05/19/18 05:32 Creatine Kinase 226 Units/L (39-308) 05/17/18 13:22 CK-MB (CK-2) 6.6 ng/mL (0-4.0) H* 05/17/18 13:22 CK/CKMB % Calc 2.9 % (<4) 05/17/18 13:22 Troponin I 0.02 ng/mL (0-1.5) 05/17/18 13:22 C-Reactive Protein 2.30 mg/L (0-3.0) 05/17/18 01:30 B-Natriuretic Peptide 14.3 pg/mL (0-79) 05/17/18 01:30 Total Protein 5.9 g/dL (6.4-8.2) L 05/19/18 05:32 Albumin 3.0 g/dL (3.4-5.0) L 05/19/18 05:32 Globulin 2.9 g/dL (2.5-4.5) 05/19/18 05:32 Albumin/Globulin Ratio 1.0 Ratio (1.1-2.1) L 05/19/18 05:32 Triglycerides 48 mg/dL (0-150) 05/17/18 04:47 Cholesterol 139 mg/dL (0-200) 05/17/18 04:47 LDL Cholesterol, Calc 70 mg/dL (0-100) 05/17/18 04:47 HDL Cholesterol 59 mg/dL (40-60) 05/17/18 04:47 Cholesterol/HDL Ratio 2.4 (0.0-5.0) 05/17/18 04:47 Free PSA Cancelled 05/19/18 05:16 % Free PSA Calc Cancelled 05/19/18 05:16 Total PSA 13.77 ng/mL (0.13-4.0) H 05/19/18 05:16 Specimen Type Random urine 05/17/18 06:19 Urine Color Yellow (YELLOW) 05/17/18 06:19 Urine Appearance Hazy (CLEAR) 05/17/18 06:19 Urine pH 7.0 (5.0 - 8.0) 05/17/18 06:19 Ur Specific [place] 1.005 (1.000-1.030) 05/17/18 06:19 Urine Protein 2+ (NEGATIVE) 05/17/18 06:19 Urine Glucose (UA) Negative (NEGATIVE) 05/17/18 06:19 Urine Ketones Negative (NEGATIVE) 05/17/18 06:19 Urine Occult Blood 5+ (NEGATIVE) 05/17/18 06:19 Urine Nitrite Negative (NEGATIVE) 05/17/18 06:19 Urine Bilirubin Negative (NEGATIVE) 05/17/18 06:19 Urine Urobilinogen Normal (NORMAL) 05/17/18 06:19 Ur Leukocyte Esterase 1+ (NEGATIVE) 05/17/18 06:19 Urine RBC 30-50 /HPF (NONE SEEN) 05/17/18 06:19 Urine WBC 0-2 /HPF (NONE SEEN) 05/17/18 06:19 Ur Squamous Epith Cells Rare /HPF (NEGATIVE) 05/17/18 06:19 Urine Bacteria Negative /HPF (NEGATIVE) 05/17/18 06:19 Ur Culture Indicated? No/not indicated 05/17/18 06:19 H. pylori IgG Antibody Positive (NEGATIVE) A 05/17/18 01:30 - Plan (1) Chest pain, rule out acute myocardial infarction Status: Acute Plan: telemetry, supplemental oxygen, continue to monitor (2) H. pylori infection Status: Acute Plan: pepcid iv, protonix iv, gi cocktail, continue to monitor (3) Ileus, unspecified Status: Acute Plan: npo, continue to monitor (4) Abdominal pain Status: Acute Qualifiers: Abdominal location: generalized Qualified Code(s): R10.84 - Generalized abdominal pain Plan: OBTAIN ABDOMEN/PELVIS CT, CONTINUE TO MONITOR (5) Shortness of breath Status: Acute Plan: SUPPLEMENTAL OXYGEN, CONTINUE TO MONITOR
--- NOTE | 2018-05-19 14:46 | CT ---
HISTORY: Density within the left lower lobe best seen on CT. Study: CT chest with contrast Comparison: CT abdomen/pelvis dated May 18, 2018. Technique: Multiple axial images of the chest were obtained from the thoracic inlet to the upper abdo men after the administration of IV contrast. MIP images were obtained. Dose reduction techniques incl uding Automated Exposure Control (AEC) and adjustment of mA and kV were utilized. Findings: The mediastinum does not demonstrate significant pathological lymphadenopathy. There is no paracardi al effusion observed. The thoracic aorta is normal in its contour without evidence for aneurysmal di latation. The central pulmonary arterial system does not demonstrate central filling defects to sugg est pulmonary emboli. Mild coronary artery calcifications. Nonspecific diffuse mucosal thickening of the visualized esophagus. Small hiatal hernia. Evaluation of the lung parenchyma fails to demonstrate focal consolidation or effusion. No pulmonary nodule or mass can be identified. The bony thorax is unremarkable in its appearance. The visualize d portions of the upper abdomen are grossly unremarkable. Mild biapical scarring. Mild/moderate centr ilobular and paraseptal emphysematous changes. Small left pleural effusion with associated compressiv e atelectasis versus infiltrate. Scattered tree-in-bud opacities are seen within the left lower lobe. Bibasilar scarring versus atelectasis. No suspicious pulmonary nodule, mass, or pneumothorax. The up per abdominal structures are unremarkable. Degenerative changes of the spine. No aggressive osseous l esions. IMPRESSION: 1. Left lower lobe compressive atelectasis versus infiltrate with small associated pleural effusion. There are also scattered tree-in-bud opacities within the left lower lobe. This may represent an aty pical mycobacterial infection. Recommend follow-up CT of the chest in 2-3 months to document stabilit y/resolution. 2. No acute pulmonary embolus. 3. Nonspecific diffuse mucosal thickening of the esophagus. Recommend clinical laboratory correlation . Reported By:
[2018-05-19] MEDS: RESTORIL CAP 15 MG PO PRN (21:00)
[2018-05-19] MEDS: DIFLUCAN 200 MG IV PREMIX* 200 MG/100 ML BAG IV SCH (21:08)
[2018-05-20] MEDS: NS 1000 ML 1,000 ML IV SCH ×3 (03:00→19:39)
[2018-05-20 05:43] LABS: BASOPHILS % (AUTO) 0.3 % (0.2-1.0); EOSINOPHILS # (AUTO) 0.1 x10^3/uL (0.0-0.2); EOSINOPHILS % (AUTO) 1.9 % (0.9-2.9); HEMATOCRIT 40.4 % (42.0-54.0); HEMOGLOBIN 14.2 g/dL (13.5-18.0); LYMPHOCYTES # (AUTO) 0.7 X10^3/uL (1.3-2.9); LYMPHOCYTES % (AUTO) 21.7 % (21.0-51.0); MEAN CORPUSCULAR HEMOGLOBIN 31.7 pg (27.0-34.0); MEAN CORPUSCULAR HGB CONC 35.2 g/dL (33.0-35.0); MEAN PLATELET VOLUME 8.9 fL (7.4-11.0); MONOCYTES # (AUTO) 0.3 x10^3/uL (0.3-0.8); MONOCYTES % (AUTO) 10.9 % (0.0-13.0); NEUTROPHILS % (AUTO) 65.2 % (42.0-75.0); PLATELET COUNT 83 X10^3/uL (150.0-450.0); RED BLOOD COUNT 4.49 X10^6/uL (4.7-6.0); RED CELL DISTRIBUTION WIDTH 13.1 % (11.6-16.5); WHITE BLOOD COUNT 3.1 X10^3/uL (3.6-10.0)
[2018-05-20 05:48] LABS: ALANINE AMINOTRANSFERASE 25 Units/L (12-78); ALBUMIN 3.1 g/dL (3.4-5.0); ALKALINE PHOSPHATASE 56 Units/L (46-116); ASPARTATE AMINO TRANSFERASE 25 Units/L (15-37); BLOOD UREA NITROGEN 7 mg/dL (7-18); CALCIUM 8.6 mg/dL (8.5-10.1); CARBON DIOXIDE 39.1 mmol/L (21-32); CHLORIDE 106 mmol/L (98-107); COR CA(FOR HYPOALB) 9.3 mg/dL (8.5-10.1); CREATININE 0.76 mg/dL (0.70-1.30); SODIUM 144 mmol/L (136-145); TOTAL PROTEIN 6.1 g/dL (6.4-8.2); eGFR NON BLACK RACES > 60 (>60)
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
[2018-05-20] MEDS: PEPCID 20 MG IV PREMIX* 20 MG/50 ML BAG IV SCH ×2 (10:00→21:13)
[2018-05-20] MEDS: DIFLUCAN 200 MG IV PREMIX* 200 MG/100 ML BAG IV SCH (10:00)
[2018-05-20] MEDS: PROTONIX INJ 40 MG VIAL IVP SCH ×2 (10:00→21:13)
[2018-05-20] MEDS: LEVSIN/MAALOX/LIDOC VISC PO SCH ×4 (10:01→21:01)
[2018-05-20] MEDS ORDERED: COLACE CAP 100 MG PO PRN (16:10)
[2018-05-20] MEDS ORDERED: MILK OF MAGNESIA PO PRN (16:10)
[2018-05-20] MEDS: VISTARIL PO PRN ×2 (18:25→21:00)
[2018-05-20] MEDS ORDERED: PROTONIX TAB 40 MG PO ONE (20:41)
[2018-05-20] MEDS ORDERED: PEPCID TAB 20 MG PO ONE (20:42)
[2018-05-20] MEDS: RESTORIL CAP 15 MG PO PRN (21:00)
[2018-05-21] MEDS: NS 1000 ML 1,000 ML IV SCH ×3 (03:35→20:03)
[2018-05-21 05:22] LABS: BASOPHILS % (AUTO) 0.4 % (0.2-1.0); EOSINOPHILS # (AUTO) 0.1 x10^3/uL (0.0-0.2); EOSINOPHILS % (AUTO) 2.4 % (0.9-2.9); HEMATOCRIT 37.8 % (42.0-54.0); HEMOGLOBIN 13.1 g/dL (13.5-18.0); LYMPHOCYTES # (AUTO) 0.8 X10^3/uL (1.3-2.9); LYMPHOCYTES % (AUTO) 24.1 % (21.0-51.0); MEAN CORPUSCULAR HEMOGLOBIN 31.2 pg (27.0-34.0); MEAN CORPUSCULAR HGB CONC 34.6 g/dL (33.0-35.0); MEAN CORPUSCULAR VOLUME 90.2 fL (80.0-100.0); MEAN PLATELET VOLUME 9.6 fL (7.4-11.0); MONOCYTES # (AUTO) 0.4 x10^3/uL (0.3-0.8); NEUTROPHILS # (AUTO) 2.2 x10^3/uL (2.2-4.8); NEUTROPHILS % (AUTO) 62.1 % (42.0-75.0); PLATELET COUNT 90 X10^3/uL (150.0-450.0); RED CELL DISTRIBUTION WIDTH 12.9 % (11.6-16.5); WHITE BLOOD COUNT 3.5 X10^3/uL (3.6-10.0)
[2018-05-21 05:35] LABS: ALANINE AMINOTRANSFERASE 22 Units/L (12-78); ALKALINE PHOSPHATASE 52 Units/L (46-116); ASPARTATE AMINO TRANSFERASE 23 Units/L (15-37); BLOOD UREA NITROGEN 7 mg/dL (7-18); CALCIUM 8.6 mg/dL (8.5-10.1); CARBON DIOXIDE 38.1 mmol/L (21-32); CHLORIDE 106 mmol/L (98-107); COR CA(FOR HYPOALB) 9.4 mg/dL (8.5-10.1); CREATININE 0.75 mg/dL (0.70-1.30); SODIUM 145 mmol/L (136-145); TOTAL PROTEIN 6.2 g/dL (6.4-8.2); eGFR NON BLACK RACES > 60 (>60)
[2018-05-21] MEDS ORDERED: K-LYTE EFFERVESCENT PO PRN (05:58)
[2018-05-21] MEDS ORDERED: POTASSIUM CHL 40 MEQ/NS 0.45% 500 ML IV PRN (05:58)
[2018-05-21] MEDS ORDERED: POTASSIUM CHLORIDE LIQ 20 MEQ UDC PO PRN (05:58)
[2018-05-21] MEDS ORDERED: K-RIDER 10 MEQ/NS 100 ML 10 MEQ/100 ML BAG IV PRN (05:58)
[2018-05-21] MEDS ORDERED: POTASSIUM CHL 60 MEQ/NS 0.45% 500 ML IV PRN (05:58)
--- NOTE | 2018-05-21 06:10 | RAD ---
Examination: Portable AP chest History: SOB Comparison reference 05/20/2018 Findings: Continued normal heart size. No acute pulmonary or pleural lesion demonstrated. There is no evidence for developing pneumonia, pleural fluid or pneumothorax. Impression: No interval change or new abnormality demonstrated since 1 day earlier. Reported By:
[2018-05-21] MEDS: DIFLUCAN 200 MG IV PREMIX* 200 MG/100 ML BAG IV SCH (08:45)
[2018-05-21] MEDS: PROTONIX INJ 40 MG VIAL IVP SCH ×2 (08:45→20:03)
[2018-05-21] MEDS: LEVSIN/MAALOX/LIDOC VISC PO SCH ×4 (08:45→20:02)
[2018-05-21] MEDS: PEPCID 20 MG IV PREMIX* 20 MG/50 ML BAG IV SCH ×2 (09:45→20:02)
[2018-05-21] MEDS ORDERED: K-DUR TAB 20 MEQ PO ONE (10:46)
[2018-05-21] MEDS: K-DUR TAB 20 MEQ PO ONE (10:53)
[2018-05-21] MEDS: CHRONULAC PO SCH (14:50)
--- NOTE | 2018-05-21 15:08 | RAD ---
Examination: Abdomen series with PA chest History: Possible ileus Findings: PA upright chest demonstrates normal heart size, no evidence for pulmonary consolidation or pneumoperitoneum. Additional supine and erect views of abdomen demonstrate moderate gaseous dilatation of small and lar ge bowel. The appearance does not suggest obstruction. There are surgical clips right upper quadrant. Multiple calcifications slightly more than 1.0 cm diameter are noted in the pelvis. There are suspec t small left intrarenal stones, the right kidney is obscured by bowel content. Impression: 1. Mild nonobstructive intestinal distention. 2. Right upper quadrant surgical clips consistent with cholecystectomy. 3. Left intrarenal calcifications consistent with small renal calculi. 4. Multiple large calculi in the pelvis consistent with bladder stones. Reported By:
[2018-05-21] MEDS: RESTORIL CAP 15 MG PO PRN (20:02)
[2018-05-21] MEDS: VISTARIL PO PRN (20:02)
[2018-05-21] MEDS: MAGNESIUM SULFATE 1 GRAM/100 mL PREMIX 1 GM/100 ML BAG IV PRN ×2 (20:40→22:47)
--- NOTE | 2018-05-21 21:41 | PCM.PROG ---
Progress Note - Progress Note for Day of Date of Exam: 05/21/18 - Subjective Subjective: WAS ADMITTED FOR CHEST PAIN, RULE OUT MYOCARDIAL INFARCTION AND ILEUS. TODAY, HE IS ALERT AND ORIENTED. PATIENT IS SITTING UP IN CHAIR ERATING LUNCH. STATES HE IS FEELING BETTER. DOES HAVE COJMPLAINT OF MILD GENERALIZED UPPER ABDOMINAL TENDERNESS. DENIES BM. DENIES SOB AT PRESENT. DENIES PRODUCTIVE . DISCUSSION WAS HAD WITH PATIENT AND REGARDING LAST NIGHT HE WAS FOUND IN THE CORNER TRYING TO GET OUT. PATIENT DOES ADMIT TO BEING FORGETFUL. STATES FRIENDS HAVE ASKED HE HE HAS DEMENTIA. PATIENT DENIES HISTORY IN FAMILY. DENIES ANY OTHER COMPLAINTS AT PRESENT. - Past Medical Family Social History Past Med/Fam/Surg Hx: No changes since H&P Allergies: Allergies acetaminophen [From Percocet] Adverse Reaction (Verified 05/01/18 19:05) ciprofloxacin [From Cipro] Adverse Reaction (Verified 05/01/18 19:05) oxycodone [From Percocet] Adverse Reaction (Verified 05/01/18 19:05) - Review of Systems ROS: No change since H&P - Vital Signs and I&O's Vital Signs: Temperature 98.7 F Pulse Rate [Right] 77 Pulse Rate 86 Respiratory Rate 18 Blood Pressure [Right Arm] 156/81 Blood Pressure [Left Arm] 158/78 Blood Pressure 176/100 O2 Sat by Pulse Oximetry 98 Intake and Output: Intake & Output 05/19/18 05/20/18 05/21/18 05/22/18 11:59 11:59 11:59 11:59 Intake Total 1841 / 1841 3156 / 3156 1600 / 1600 1200 / 1200 Output Total 950 / 950 550 / 550 600 / 600 Balance 891 / 891 2606 / 2606 1000 / 1000 1200 / 1200 - Physical Exam Oriented: Normal Eyes: Normal Ear: Normal Nose: Normal Throat: Normal Respiratory: Right, Left, Generalized, Diminished Cardiovascular: Normal. negative: S3, S4, Murmur : Normal Auscultation: Bowel Sounds: Normal Palpation: Normal Tenderness: Normal Skin: Normal Musculoskeletal: Right, Left, Shoulder, Back:Thoracic, Tender Psychiatric: Normal Mood Description: Calm Affect: Normal Speech Pattern: Clear, Appropriate - Laboratory and Diagnostics Result Diagrams: 05/21/18 04:33 05/21/18 04:33 Labs: 05/18/18 15:55 Sputum - Expectorated Sputum Sputum Culture - Final 05/18/18 15:55 Sputum - Expectorated Sputum - Final Laboratory WBC 3.5 X10^3/uL (3.6-10.0) L 05/21/18 04:33 RBC 4.20 X10^6/uL (4.7-6.0) L 05/21/18 04:33 Hgb 13.1 g/dL (13.5-18.0) L 05/21/18 04:33 Hct 37.8 % (42.0-54.0) L 05/21/18 04:33 MCV 90.2 fL (80.0-100.0) 05/21/18 04:33 MCH 31.2 pg (27.0-34.0) 05/21/18 04:33 MCHC 34.6 g/dL (33.0-35.0) 05/21/18 04:33 RDW 12.9 % (11.6-16.5) 05/21/18 04:33 Plt Count 90 X10^3/uL (150.0-450.0) L 05/21/18 04:33 MPV 9.6 fL (7.4-11.0) 05/21/18 04:33 Neut % (Auto) 62.1 % (42.0-75.0) 05/21/18 04:33 Lymph % (Auto) 24.1 % (21.0-51.0) 05/21/18 04:33 [place] % (Auto) 11.0 % (0.0-13.0) 05/21/18 04:33 Eos % (Auto) 2.4 % (0.9-2.9) 05/21/18 04:33 Baso % (Auto) 0.4 % (0.2-1.0) 05/21/18 04:33 Neut # (Auto) 2.2 x10^3/uL (2.2-4.8) 05/21/18 04:33 Lymph # (Auto) 0.8 X10^3/uL (1.3-2.9) L 05/21/18 04:33 [place] # (Auto) 0.4 x10^3/uL (0.3-0.8) 05/21/18 04:33 Eos # (Auto) 0.1 x10^3/uL (0.0-0.2) 05/21/18 04:33 Baso # (Auto) 0.0 X10^3/uL (0.0-0.1) 05/21/18 04:33 Absolute Nucleated RBC 0.0 /100WBC 05/21/18 04:33 INR Target Range - 05/17/18 01:30 INR 0.99 (0.8-1.3) 05/17/18 01:30 APTT 32.5 SECONDS (22.9-36.5) 05/17/18 01:30 PTT Comment - 05/17/18 01:30 Sodium 145 mmol/L (136-145) 05/21/18 04:33 Corrected Sodium TNP 05/21/18 04:33 Potassium 3.4 mmol/L (3.5-5.1) L 05/21/18 04:33 Chloride 106 mmol/L (98-107) 05/21/18 04:33 Carbon Dioxide 38.1 mmol/L (21-32) H 05/21/18 04:33 BUN 7 mg/dL (7-18) 05/21/18 04:33 Creatinine 0.75 mg/dL (0.70-1.30) 05/21/18 04:33 Est GFR (MDRD) Af Amer > 60 (>60) 05/21/18 04:33 Est GFR (MDRD) Non-Af > 60 (>60) 05/21/18 04:33 Glucose 101 mg/dL (65-99) H 05/21/18 04:33 Calcium 8.6 mg/dL (8.5-10.1) 05/21/18 04:33 Corrected Calcium 9.4 mg/dL (8.5-10.1) 05/21/18 04:33 Magnesium 1.8 mg/dL (1.7-2.9) 05/21/18 04:33 Total Bilirubin 0.60 mg/dL (0.2-1.0) 05/21/18 04:33 AST 23 Units/L (15-37) 05/21/18 04:33 ALT 22 Units/L (12-78) 05/21/18 04:33 Alkaline Phosphatase 52 Units/L (46-116) 05/21/18 04:33 Creatine Kinase 226 Units/L (39-308) 05/17/18 13:22 CK-MB (CK-2) 6.6 ng/mL (0-4.0) H* 05/17/18 13:22 CK/CKMB % Calc 2.9 % (<4) 05/17/18 13:22 Troponin I 0.02 ng/mL (0-1.5) 05/17/18 13:22 C-Reactive Protein 2.30 mg/L (0-3.0) 05/17/18 01:30 B-Natriuretic Peptide 14.3 pg/mL (0-79) 05/17/18 01:30 Total Protein 6.2 g/dL (6.4-8.2) L 05/21/18 04:33 Albumin 3.0 g/dL (3.4-5.0) L 05/21/18 04:33 Globulin 3.2 g/dL (2.5-4.5) 05/21/18 04:33 Albumin/Globulin Ratio 0.9 Ratio (1.1-2.1) L 05/21/18 04:33 Triglycerides 48 mg/dL (0-150) 05/17/18 04:47 Cholesterol 139 mg/dL (0-200) 05/17/18 04:47 LDL Cholesterol, Calc 70 mg/dL (0-100) 05/17/18 04:47 HDL Cholesterol 59 mg/dL (40-60) 05/17/18 04:47 Cholesterol/HDL Ratio 2.4 (0.0-5.0) 05/17/18 04:47 Free PSA Cancelled 05/19/18 05:16 % Free PSA Calc Cancelled 05/19/18 05:16 Total PSA 13.77 ng/mL (0.13-4.0) H 05/19/18 05:16 Specimen Type Random urine 05/17/18 06:19 Urine Color Yellow (YELLOW) 05/17/18 06:19 Urine Appearance Hazy (CLEAR) 05/17/18 06:19 Urine pH 7.0 (5.0 - 8.0) 05/17/18 06:19 Ur Specific [place] 1.005 (1.000-1.030) 05/17/18 06:19 Urine Protein 2+ (NEGATIVE) 05/17/18 06:19 Urine Glucose (UA) Negative (NEGATIVE) 05/17/18 06:19 Urine Ketones Negative (NEGATIVE) 05/17/18 06:19 Urine Occult Blood 5+ (NEGATIVE) 05/17/18 06:19 Urine Nitrite Negative (NEGATIVE) 05/17/18 06:19 Urine Bilirubin Negative (NEGATIVE) 05/17/18 06:19 Urine Urobilinogen Normal (NORMAL) 05/17/18 06:19 Ur Leukocyte Esterase 1+ (NEGATIVE) 05/17/18 06:19 Urine RBC 30-50 /HPF (NONE SEEN) 05/17/18 06:19 Urine WBC 0-2 /HPF (NONE SEEN) 05/17/18 06:19 Ur Squamous Epith Cells Rare /HPF (NEGATIVE) 05/17/18 06:19 Urine Bacteria Negative /HPF (NEGATIVE) 05/17/18 06:19 Ur Culture Indicated? No/not indicated 05/17/18 06:19 H. pylori IgG Antibody Positive (NEGATIVE) A 05/17/18 01:30 - Plan (1) Hypokalemia Status: Acute Plan: LABS DAILY, SUPPLEMENTAL KCL (2) Renal calculi Status: Acute Plan: MONITOR FOR PAIN (3) Left lower lobe pneumonia Status: Acute Qualifiers: Pneumonia type: due to unspecified organism Qualified Code(s): J18.1 - Lobar pneumonia, unspecified organism Narrative Support Text: FUNGAL Plan: DIFLUCAN IV, NEBS (4) Ileus, unspecified Status: Acute Plan: KUB, LACTULOSE (5) H. pylori infection Status: Acute Plan: pepcid iv, protonix iv, gi cocktail, continue to monitor
[2018-05-22] MEDS: NS 1000 ML 1,000 ML IV SCH ×3 (03:08→20:59)
[2018-05-22 06:57] LABS: BASOPHILS % (AUTO) 0.8 % (0.2-1.0); EOSINOPHILS # (AUTO) 0.1 x10^3/uL (0.0-0.2); EOSINOPHILS % (AUTO) 2.5 % (0.9-2.9); HEMATOCRIT 41.1 % (42.0-54.0); HEMOGLOBIN 13.9 g/dL (13.5-18.0); LYMPHOCYTES # (AUTO) 0.9 X10^3/uL (1.3-2.9); MEAN CORPUSCULAR HEMOGLOBIN 30.8 pg (27.0-34.0); MEAN CORPUSCULAR HGB CONC 33.8 g/dL (33.0-35.0); MEAN PLATELET VOLUME 9.1 fL (7.4-11.0); MONOCYTES # (AUTO) 0.4 x10^3/uL (0.3-0.8); NEUTROPHILS # (AUTO) 2.3 x10^3/uL (2.2-4.8); NEUTROPHILS % (AUTO) 62.7 % (42.0-75.0); PLATELET COUNT 92 X10^3/uL (150.0-450.0); RED BLOOD COUNT 4.51 X10^6/uL (4.7-6.0); RED CELL DISTRIBUTION WIDTH 13.4 % (11.6-16.5); WHITE BLOOD COUNT 3.7 X10^3/uL (3.6-10.0)
--- NOTE | 2018-05-22 07:03 | RAD ---
HISTORY: Shortness of breath Study: Single-view chest Comparison: 05/21/2018 Findings: The trachea is midline. The cardiac silhouette is unremarkable. Chronic interstitial lung changes a re observed throughout the right and left chest without focal infiltrate or effusion. The bony thora x is unremarkable. IMPRESSION: 1. No acute cardiopulmonary disease. Reported By:
[2018-05-22 07:51] LABS: BLOOD UREA NITROGEN 6 mg/dL (7-18); CALCIUM 9.2 mg/dL (8.5-10.1); CARBON DIOXIDE 38.6 mmol/L (21-32); CHLORIDE 100 mmol/L (98-107); SODIUM 141 mmol/L (136-145); eGFR NON BLACK RACES > 60 (>60)
[2018-05-22] MEDS: PEPCID 20 MG IV PREMIX* 20 MG/50 ML BAG IV SCH ×2 (08:10→20:59)
[2018-05-22] MEDS: LEVSIN/MAALOX/LIDOC VISC PO SCH ×4 (08:15→20:58)
[2018-05-22 12:13] LABS: ALANINE AMINOTRANSFERASE 25 Units/L (12-78); ALBUMIN 3.4 g/dL (3.4-5.0); ALKALINE PHOSPHATASE 60 Units/L (46-116); ASPARTATE AMINO TRANSFERASE 25 Units/L (15-37); TOTAL PROTEIN 6.6 g/dL (6.4-8.2)
--- NOTE | 2018-05-22 15:27 | PCM.PROG ---
Progress Note - Progress Note for Day of Date of Exam: 05/19/18 - Subjective Subjective: WAS ADMITTED FOR CHEST PAIN, RULE OUT MYOCARDIAL INFARCTION AND ILEUS. TODAY, HE IS ALERT AND ORIENTED, SITTING IN THE CHAIR ON MORNING ROUNDS. TODAY, HE CONTINUES WITH COMPLAINTS OF SHORTNESS OF BREATH, DIFFUSE ABDOMINAL PAIN, AND LOWER BACK PAIN. HE DENIES CHEST PAIN UPON ROUNDS. ON EXAMINATION, HEART IS REGULAR IN RATE AND RHYTHM. BILATERAL LUNGS ARE NOTED WITH DIMINISHED LUNG SOUNDS THROUGHOUT. ABDOMEN IS FLAT, SOFT, AND NOTED WITH MILD, DIFFUSE ABDOMINAL PAIN ON PALPATION. AN ABDOMEN/PELVIS WAS OBTAINED YESTERDAY AND REVLEALED Bilateral nonobstructing renal calculi multiple on the left. least 5 bladder calculi as described. Abnormal parenchymal density abutting the posterior and medial pleura inferiorly in the left lower lobe which could represent infiltrate, atelectasis, or neoplasm. If this does not resolve with follow-up, PET-CT may be required in order to exclude neoplasm. TODAY, WE WILL OBTAIN A CHEST CT WITH CONTRAST AND OBTAIN A PSA LEVEL. OTHERWISE , WE PLAN TO FOLLOW UP WITH AM LABS AND CONTINUE TO MONITOR PATIENT. - Past Medical Family Social History Past Med/Fam/Surg Hx: No changes since H&P Allergies: Allergies acetaminophen [From Percocet] Adverse Reaction (Verified 05/01/18 19:05) ciprofloxacin [From Cipro] Adverse Reaction (Verified 05/01/18 19:05) oxycodone [From Percocet] Adverse Reaction (Verified 05/01/18 19:05) - Review of Systems ROS: No change since H&P - Vital Signs and I&O's Vital Signs: Temperature 98.7 F Pulse Rate [Right] 98 Pulse Rate 86 Respiratory Rate 25 Blood Pressure [Right Arm] 155/100 Blood Pressure [Left Arm] 158/78 Blood Pressure 176/100 O2 Sat by Pulse Oximetry 95 Intake and Output: Intake & Output 05/20/18 05/21/18 05/22/18 05/23/18 11:59 11:59 11:59 11:59 Intake Total 3156 / 3156 1600 / 1600 2362 / 2362 100 / 100 Output Total 550 / 550 600 / 600 550 / 550 Balance 2606 / 2606 1000 / 1000 1812 / 1812 100 / 100 - Physical Exam Oriented: Normal Eyes: Normal Ear: Normal Nose: Normal Throat: Normal Respiratory: Right, Left, Generalized, Diminished Cardiovascular: Normal. negative: S3, S4, Murmur : Normal Auscultation: Bowel Sounds: Normal Palpation: Normal Tenderness: Normal Skin: Normal Musculoskeletal: Right, Left, Shoulder, Back:Thoracic, Tender Psychiatric: Normal Mood Description: Calm Affect: Normal Speech Pattern: Clear, Appropriate - Laboratory and Diagnostics Result Diagrams: 05/22/18 06:20 05/22/18 06:20 Labs: 05/18/18 15:55 Sputum - Expectorated Sputum Sputum Culture - Final 05/18/18 15:55 Sputum - Expectorated Sputum - Final Laboratory WBC 3.7 X10^3/uL (3.6-10.0) 05/22/18 06:20 RBC 4.51 X10^6/uL (4.7-6.0) L 05/22/18 06:20 Hgb 13.9 g/dL (13.5-18.0) 05/22/18 06:20 Hct 41.1 % (42.0-54.0) L 05/22/18 06:20 MCV 91.0 fL (80.0-100.0) 05/22/18 06:20 MCH 30.8 pg (27.0-34.0) 05/22/18 06:20 MCHC 33.8 g/dL (33.0-35.0) 05/22/18 06:20 RDW 13.4 % (11.6-16.5) 05/22/18 06:20 Plt Count 92 X10^3/uL (150.0-450.0) L 05/22/18 06:20 MPV 9.1 fL (7.4-11.0) 05/22/18 06:20 Neut % (Auto) 62.7 % (42.0-75.0) 05/22/18 06:20 Lymph % (Auto) 24.0 % (21.0-51.0) 05/22/18 06:20 [place] % (Auto) 10.0 % (0.0-13.0) 05/22/18 06:20 Eos % (Auto) 2.5 % (0.9-2.9) 05/22/18 06:20 Baso % (Auto) 0.8 % (0.2-1.0) 05/22/18 06:20 Neut # (Auto) 2.3 x10^3/uL (2.2-4.8) 05/22/18 06:20 Lymph # (Auto) 0.9 X10^3/uL (1.3-2.9) L 05/22/18 06:20 [place] # (Auto) 0.4 x10^3/uL (0.3-0.8) 05/22/18 06:20 Eos # (Auto) 0.1 x10^3/uL (0.0-0.2) 05/22/18 06:20 Baso # (Auto) 0.0 X10^3/uL (0.0-0.1) 05/22/18 06:20 Absolute Nucleated RBC 0.1 /100WBC 05/22/18 06:20 INR Target Range - 05/17/18 01:30 INR 0.99 (0.8-1.3) 05/17/18 01:30 APTT 32.5 SECONDS (22.9-36.5) 05/17/18 01:30 PTT Comment - 05/17/18 01:30 Sodium 141 mmol/L (136-145) 05/22/18 06:20 Corrected Sodium TNP 05/22/18 06:20 Potassium 3.9 mmol/L (3.5-5.1) 05/22/18 06:20 Chloride 100 mmol/L (98-107) 05/22/18 06:20 Carbon Dioxide 38.6 mmol/L (21-32) H 05/22/18 06:20 BUN 6 mg/dL (7-18) L 05/22/18 06:20 Creatinine 1.00 mg/dL (0.70-1.30) 05/22/18 06:20 Est GFR (MDRD) Af Amer > 60 (>60) 05/22/18 06:20 Est GFR (MDRD) Non-Af > 60 (>60) 05/22/18 06:20 Glucose 90 mg/dL (65-99) 05/22/18 06:20 Calcium 9.2 mg/dL (8.5-10.1) 05/22/18 06:20 Corrected Calcium TNP 05/22/18 06:20 Magnesium 1.8 mg/dL (1.7-2.9) 05/21/18 04:33 Total Bilirubin 0.70 mg/dL (0.2-1.0) 05/22/18 06:20 AST 25 Units/L (15-37) 05/22/18 06:20 ALT 25 Units/L (12-78) 05/22/18 06:20 Alkaline Phosphatase 60 Units/L (46-116) 05/22/18 06:20 Creatine Kinase 226 Units/L (39-308) 05/17/18 13:22 CK-MB (CK-2) 6.6 ng/mL (0-4.0) H* 05/17/18 13:22 CK/CKMB % Calc 2.9 % (<4) 05/17/18 13:22 Troponin I 0.02 ng/mL (0-1.5) 05/17/18 13:22 C-Reactive Protein 2.30 mg/L (0-3.0) 05/17/18 01:30 B-Natriuretic Peptide 14.3 pg/mL (0-79) 05/17/18 01:30 Total Protein 6.6 g/dL (6.4-8.2) 05/22/18 06:20 Albumin 3.4 g/dL (3.4-5.0) 05/22/18 06:20 Globulin 3.2 g/dL (2.5-4.5) 05/22/18 06:20 Albumin/Globulin Ratio 1.1 Ratio (1.1-2.1) 05/22/18 06:20 Triglycerides 48 mg/dL (0-150) 05/17/18 04:47 Cholesterol 139 mg/dL (0-200) 05/17/18 04:47 LDL Cholesterol, Calc 70 mg/dL (0-100) 05/17/18 04:47 HDL Cholesterol 59 mg/dL (40-60) 05/17/18 04:47 Cholesterol/HDL Ratio 2.4 (0.0-5.0) 05/17/18 04:47 Free PSA Cancelled 05/19/18 05:16 % Free PSA Calc Cancelled 05/19/18 05:16 Total PSA 13.77 ng/mL (0.13-4.0) H 05/19/18 05:16 Specimen Type Random urine 05/17/18 06:19 Urine Color Yellow (YELLOW) 05/17/18 06:19 Urine Appearance Hazy (CLEAR) 05/17/18 06:19 Urine pH 7.0 (5.0 - 8.0) 05/17/18 06:19 Ur Specific [place] 1.005 (1.000-1.030) 05/17/18 06:19 Urine Protein 2+ (NEGATIVE) 05/17/18 06:19 Urine Glucose (UA) Negative (NEGATIVE) 05/17/18 06:19 Urine Ketones Negative (NEGATIVE) 05/17/18 06:19 Urine Occult Blood 5+ (NEGATIVE) 05/17/18 06:19 Urine Nitrite Negative (NEGATIVE) 05/17/18 06:19 Urine Bilirubin Negative (NEGATIVE) 05/17/18 06:19 Urine Urobilinogen Normal (NORMAL) 05/17/18 06:19 Ur Leukocyte Esterase 1+ (NEGATIVE) 05/17/18 06:19 Urine RBC 30-50 /HPF (NONE SEEN) 05/17/18 06:19 Urine WBC 0-2 /HPF (NONE SEEN) 05/17/18 06:19 Ur Squamous Epith Cells Rare /HPF (NEGATIVE) 05/17/18 06:19 Urine Bacteria Negative /HPF (NEGATIVE) 05/17/18 06:19 Ur Culture Indicated? No/not indicated 05/17/18 06:19 H. pylori IgG Antibody Positive (NEGATIVE) A 05/17/18 01:30 - Plan (1) Chest pain, rule out acute myocardial infarction Status: Resolved Plan: telemetry, supplemental oxygen, continue to monitor (2) H. pylori infection Status: Acute Plan: pepcid iv, protonix iv, gi cocktail, continue to monitor (3) Ileus, unspecified Status: Acute Plan: KUB, LACTULOSE (4) Abdominal pain Status: Acute Qualifiers: Abdominal location: generalized Qualified Code(s): R10.84 - Generalized abdominal pain Plan: OBTAIN ABDOMEN/PELVIS CT, CONTINUE TO MONITOR (5) Shortness of breath Status: Acute Plan: SUPPLEMENTAL OXYGEN, CONTINUE TO MONITOR (6) Renal calculi Status: Acute Plan: MONITOR FOR PAIN
[2018-05-22] MEDS ORDERED: NORMODYNE INJ 100 MG VIAL ONE (17:05)
[2018-05-22] MEDS: CHRONULAC PO SCH (17:55)
[2018-05-22] MEDS: PROTONIX INJ 40 MG VIAL IVP SCH ×2 (17:56→20:59)
[2018-05-22] MEDS: DIFLUCAN 200 MG IV PREMIX* 200 MG/100 ML BAG IV SCH (17:58)
[2018-05-22] MEDS: K-DUR TAB 20 MEQ PO ONE (17:59)
[2018-05-22] MEDS ORDERED: K-DUR TAB 20 MEQ PO ONE (18:01)
--- NOTE | 2018-05-22 20:42 | PCM.PROG ---
Progress Note - Progress Note for Day of Date of Exam: 05/20/18 - Subjective Subjective: WAS ADMITTED FOR CHEST PAIN, RULE OUT MYOCARDIAL INFARCTION AND ILEUS. TODAY, HE IS ALERT AND ORIENTED, SITTING IN THE CHAIR ON MORNING ROUNDS. TODAY, HE CONTINUES WITH COMPLAINTS OF SHORTNESS OF BREATH, DIFFUSE ABDOMINAL PAIN, AND LOWER BACK PAIN, BUT REPORTS SLIGHT IMPROVEMENT SINCE YESTERDAY. HE DENIES CHEST PAIN UPON ROUNDS. ON EXAMINATION, HEART IS REGULAR IN RATE AND RHYTHM. BILATERAL LUNGS ARE NOTED WITH DIMINISHED LUNG SOUNDS THROUGHOUT. ABDOMEN IS FLAT, SOFT, AND NOTED WITH MILD, DIFFUSE ABDOMINAL PAIN ON PALPATION. A CHEST CT WAS OBTAINED YESTERDAY AND REVEALED: Left lower lobe compressive atelectasis versus infiltrate with small associated pleural effusion. There are also scattered tree-in-bud opacities within the left lower lobe. This may represent an atypical mycobacterial infection. Recommend follow- up CT of the chest in 2-3 months to document stability/resolution. No acute pulmonary embolus. Nonspecific diffuse mucosal thickening of the esophagus. Recommend clinical laboratory correlation. WE STARTED PATIENT ON DIFLUCAN 200MG IV DAILY YESTERDAY. TODAY, WE WILL OBTAIN AFB CULTURES. OTHERWISE, WE WILL CONTINUE WITH CURRENT PLAN OF CARE TODAY. WE PLAN TO FOLLOW UP WITH AM LABS AND CONTINUE TO MONITOR PATIENT. - Past Medical Family Social History Past Med/Fam/Surg Hx: No changes since H&P Allergies: Allergies acetaminophen [From Percocet] Adverse Reaction (Verified 05/01/18 19:05) ciprofloxacin [From Cipro] Adverse Reaction (Verified 05/01/18 19:05) oxycodone [From Percocet] Adverse Reaction (Verified 05/01/18 19:05) - Review of Systems ROS: No change since H&P - Vital Signs and I&O's Vital Signs: Temperature 98.9 F Pulse Rate [Right] 81 Pulse Rate 86 Respiratory Rate 21 Blood Pressure [Right Arm] 151/99 Blood Pressure [Left Arm] 158/78 Blood Pressure 176/100 O2 Sat by Pulse Oximetry 95 Intake and Output: Intake & Output 05/20/18 05/21/18 05/22/18 05/23/18 11:59 11:59 11:59 11:59 Intake Total 3156 / 3156 1600 / 1600 2362 / 2362 550 / 550 Output Total 550 / 550 600 / 600 550 / 550 Balance 2606 / 2606 1000 / 1000 1812 / 1812 550 / 550 - Physical Exam Oriented: Normal Eyes: Normal Ear: Normal Nose: Normal Throat: Normal Respiratory: Right, Left, Generalized, Diminished Cardiovascular: Normal. negative: S3, S4, Murmur : Normal Auscultation: Bowel Sounds: Normal Palpation: Normal Tenderness: Normal Skin: Normal Musculoskeletal: Right, Left, Shoulder, Back:Thoracic, Tender Psychiatric: Normal Mood Description: Calm Affect: Normal Speech Pattern: Clear, Appropriate - Laboratory and Diagnostics Result Diagrams: 05/22/18 06:20 05/22/18 06:20 Labs: 05/18/18 15:55 Sputum - Expectorated Sputum Sputum Culture - Final 05/18/18 15:55 Sputum - Expectorated Sputum - Final Laboratory WBC 3.7 X10^3/uL (3.6-10.0) 05/22/18 06:20 RBC 4.51 X10^6/uL (4.7-6.0) L 05/22/18 06:20 Hgb 13.9 g/dL (13.5-18.0) 05/22/18 06:20 Hct 41.1 % (42.0-54.0) L 05/22/18 06:20 MCV 91.0 fL (80.0-100.0) 05/22/18 06:20 MCH 30.8 pg (27.0-34.0) 05/22/18 06:20 MCHC 33.8 g/dL (33.0-35.0) 05/22/18 06:20 RDW 13.4 % (11.6-16.5) 05/22/18 06:20 Plt Count 92 X10^3/uL (150.0-450.0) L 05/22/18 06:20 MPV 9.1 fL (7.4-11.0) 05/22/18 06:20 Neut % (Auto) 62.7 % (42.0-75.0) 05/22/18 06:20 Lymph % (Auto) 24.0 % (21.0-51.0) 05/22/18 06:20 [place] % (Auto) 10.0 % (0.0-13.0) 05/22/18 06:20 Eos % (Auto) 2.5 % (0.9-2.9) 05/22/18 06:20 Baso % (Auto) 0.8 % (0.2-1.0) 05/22/18 06:20 Neut # (Auto) 2.3 x10^3/uL (2.2-4.8) 05/22/18 06:20 Lymph # (Auto) 0.9 X10^3/uL (1.3-2.9) L 05/22/18 06:20 [place] # (Auto) 0.4 x10^3/uL (0.3-0.8) 05/22/18 06:20 Eos # (Auto) 0.1 x10^3/uL (0.0-0.2) 05/22/18 06:20 Baso # (Auto) 0.0 X10^3/uL (0.0-0.1) 05/22/18 06:20 Absolute Nucleated RBC 0.1 /100WBC 05/22/18 06:20 INR Target Range - 05/17/18 01:30 INR 0.99 (0.8-1.3) 05/17/18 01:30 APTT 32.5 SECONDS (22.9-36.5) 05/17/18 01:30 PTT Comment - 05/17/18 01:30 Sodium 141 mmol/L (136-145) 05/22/18 06:20 Corrected Sodium TNP 05/22/18 06:20 Potassium 3.9 mmol/L (3.5-5.1) 05/22/18 06:20 Chloride 100 mmol/L (98-107) 05/22/18 06:20 Carbon Dioxide 38.6 mmol/L (21-32) H 05/22/18 06:20 BUN 6 mg/dL (7-18) L 05/22/18 06:20 Creatinine 1.00 mg/dL (0.70-1.30) 05/22/18 06:20 Est GFR (MDRD) Af Amer > 60 (>60) 05/22/18 06:20 Est GFR (MDRD) Non-Af > 60 (>60) 05/22/18 06:20 Glucose 90 mg/dL (65-99) 05/22/18 06:20 Calcium 9.2 mg/dL (8.5-10.1) 05/22/18 06:20 Corrected Calcium TNP 05/22/18 06:20 Magnesium 1.8 mg/dL (1.7-2.9) 05/21/18 04:33 Total Bilirubin 0.70 mg/dL (0.2-1.0) 05/22/18 06:20 AST 25 Units/L (15-37) 05/22/18 06:20 ALT 25 Units/L (12-78) 05/22/18 06:20 Alkaline Phosphatase 60 Units/L (46-116) 05/22/18 06:20 Creatine Kinase 226 Units/L (39-308) 05/17/18 13:22 CK-MB (CK-2) 6.6 ng/mL (0-4.0) H* 05/17/18 13:22 CK/CKMB % Calc 2.9 % (<4) 05/17/18 13:22 Troponin I 0.02 ng/mL (0-1.5) 05/17/18 13:22 C-Reactive Protein 2.30 mg/L (0-3.0) 05/17/18 01:30 B-Natriuretic Peptide 14.3 pg/mL (0-79) 05/17/18 01:30 Total Protein 6.6 g/dL (6.4-8.2) 05/22/18 06:20 Albumin 3.4 g/dL (3.4-5.0) 05/22/18 06:20 Globulin 3.2 g/dL (2.5-4.5) 05/22/18 06:20 Albumin/Globulin Ratio 1.1 Ratio (1.1-2.1) 05/22/18 06:20 Triglycerides 48 mg/dL (0-150) 05/17/18 04:47 Cholesterol 139 mg/dL (0-200) 05/17/18 04:47 LDL Cholesterol, Calc 70 mg/dL (0-100) 05/17/18 04:47 HDL Cholesterol 59 mg/dL (40-60) 05/17/18 04:47 Cholesterol/HDL Ratio 2.4 (0.0-5.0) 05/17/18 04:47 Free PSA Cancelled 05/19/18 05:16 % Free PSA Calc Cancelled 05/19/18 05:16 Total PSA 13.77 ng/mL (0.13-4.0) H 05/19/18 05:16 Specimen Type Random urine 05/17/18 06:19 Urine Color Yellow (YELLOW) 05/17/18 06:19 Urine Appearance Hazy (CLEAR) 05/17/18 06:19 Urine pH 7.0 (5.0 - 8.0) 05/17/18 06:19 Ur Specific [place] 1.005 (1.000-1.030) 05/17/18 06:19 Urine Protein 2+ (NEGATIVE) 05/17/18 06:19 Urine Glucose (UA) Negative (NEGATIVE) 05/17/18 06:19 Urine Ketones Negative (NEGATIVE) 05/17/18 06:19 Urine Occult Blood 5+ (NEGATIVE) 05/17/18 06:19 Urine Nitrite Negative (NEGATIVE) 05/17/18 06:19 Urine Bilirubin Negative (NEGATIVE) 05/17/18 06:19 Urine Urobilinogen Normal (NORMAL) 05/17/18 06:19 Ur Leukocyte Esterase 1+ (NEGATIVE) 05/17/18 06:19 Urine RBC 30-50 /HPF (NONE SEEN) 05/17/18 06:19 Urine WBC 0-2 /HPF (NONE SEEN) 05/17/18 06:19 Ur Squamous Epith Cells Rare /HPF (NEGATIVE) 05/17/18 06:19 Urine Bacteria Negative /HPF (NEGATIVE) 05/17/18 06:19 Ur Culture Indicated? No/not indicated 05/17/18 06:19 H. pylori IgG Antibody Positive (NEGATIVE) A 05/17/18 01:30 - Plan (1) Chest pain, rule out acute myocardial infarction Status: Resolved Plan: telemetry, supplemental oxygen, continue to monitor (2) H. pylori infection Status: Acute Plan: pepcid iv, protonix iv, gi cocktail, continue to monitor (3) Ileus, unspecified Status: Acute (4) Abdominal pain Status: Acute Qualifiers: Abdominal location: generalized Qualified Code(s): R10.84 - Generalized abdominal pain Plan: CONTINUE TO MONITOR PAIN (5) Shortness of breath Status: Acute Plan: SUPPLEMENTAL OXYGEN, CONTINUE TO MONITOR (6) Renal calculi Status: Acute Plan: MONITOR FOR PAIN
[2018-05-22] MEDS: RESTORIL CAP 15 MG PO PRN (20:58)
[2018-05-22] MEDS: ATIVAN TAB 0.5 MG PO PRN (20:58)
--- NOTE | 2018-05-22 22:12 | PCM.PROG ---
Progress Note - Progress Note for Day of Date of Exam: 05/22/18 - Subjective Subjective: WAS ADMITTED FOR CHEST PAIN, RULE OUT MYOCARDIAL INFARCTION AND ILEUS. TODAY, HE IS ALERT AND ORIENTED, SITTING ON SIDE OF BED. TODAY, HE STATES HE NEEDS SOMETHING FOR HIS NERVES. STATES HE FEELS NERVOUS. STATES HE THINKS THAT IUS WHY HIS BP IS ELEVATED. DENIES SOB OR PRODUCTIVE COUGH. DENIES ABD PAIN. IS TOLERATING DIET. HAS VOICED CONCERNS FOR DEMENTIA. NO OTHER COMPLAINTS. - Past Medical Family Social History Past Med/Fam/Surg Hx: No changes since H&P Allergies: Allergies acetaminophen [From Percocet] Adverse Reaction (Verified 05/01/18 19:05) ciprofloxacin [From Cipro] Adverse Reaction (Verified 05/01/18 19:05) oxycodone [From Percocet] Adverse Reaction (Verified 05/01/18 19:05) - Review of Systems ROS: No change since H&P - Vital Signs and I&O's Vital Signs: Temperature 98.9 F Pulse Rate [Right] 81 Pulse Rate 86 Respiratory Rate 21 Blood Pressure [Right Arm] 151/99 Blood Pressure [Left Arm] 158/78 Blood Pressure 176/100 O2 Sat by Pulse Oximetry 95 Intake and Output: Intake & Output 05/20/18 05/21/18 05/22/18 05/23/18 11:59 11:59 11:59 11:59 Intake Total 3156 / 3156 1600 / 1600 2362 / 2362 550 / 550 Output Total 550 / 550 600 / 600 550 / 550 Balance 2606 / 2606 1000 / 1000 1812 / 1812 550 / 550 - Physical Exam Oriented: Normal Eyes: Normal Ear: Normal Nose: Normal Throat: Normal Respiratory: Right, Left, Generalized, Diminished Cardiovascular: Normal. negative: S3, S4, Murmur : Normal Auscultation: Bowel Sounds: Normal Palpation: Normal Tenderness: Normal Skin: Normal Musculoskeletal: Right, Left, Shoulder, Back:Thoracic, Tender Psychiatric: Normal Mood Description: Calm Affect: Normal Speech Pattern: Clear, Appropriate - Laboratory and Diagnostics Result Diagrams: 05/22/18 06:20 05/22/18 06:20 Labs: 05/18/18 15:55 Sputum - Expectorated Sputum Sputum Culture - Final 05/18/18 15:55 Sputum - Expectorated Sputum - Final Laboratory WBC 3.7 X10^3/uL (3.6-10.0) 05/22/18 06:20 RBC 4.51 X10^6/uL (4.7-6.0) L 05/22/18 06:20 Hgb 13.9 g/dL (13.5-18.0) 05/22/18 06:20 Hct 41.1 % (42.0-54.0) L 05/22/18 06:20 MCV 91.0 fL (80.0-100.0) 05/22/18 06:20 MCH 30.8 pg (27.0-34.0) 05/22/18 06:20 MCHC 33.8 g/dL (33.0-35.0) 05/22/18 06:20 RDW 13.4 % (11.6-16.5) 05/22/18 06:20 Plt Count 92 X10^3/uL (150.0-450.0) L 05/22/18 06:20 MPV 9.1 fL (7.4-11.0) 05/22/18 06:20 Neut % (Auto) 62.7 % (42.0-75.0) 05/22/18 06:20 Lymph % (Auto) 24.0 % (21.0-51.0) 05/22/18 06:20 [place] % (Auto) 10.0 % (0.0-13.0) 05/22/18 06:20 Eos % (Auto) 2.5 % (0.9-2.9) 05/22/18 06:20 Baso % (Auto) 0.8 % (0.2-1.0) 05/22/18 06:20 Neut # (Auto) 2.3 x10^3/uL (2.2-4.8) 05/22/18 06:20 Lymph # (Auto) 0.9 X10^3/uL (1.3-2.9) L 05/22/18 06:20 [place] # (Auto) 0.4 x10^3/uL (0.3-0.8) 05/22/18 06:20 Eos # (Auto) 0.1 x10^3/uL (0.0-0.2) 05/22/18 06:20 Baso # (Auto) 0.0 X10^3/uL (0.0-0.1) 05/22/18 06:20 Absolute Nucleated RBC 0.1 /100WBC 05/22/18 06:20 INR Target Range - 05/17/18 01:30 INR 0.99 (0.8-1.3) 05/17/18 01:30 APTT 32.5 SECONDS (22.9-36.5) 05/17/18 01:30 PTT Comment - 05/17/18 01:30 Sodium 141 mmol/L (136-145) 05/22/18 06:20 Corrected Sodium TNP 05/22/18 06:20 Potassium 3.9 mmol/L (3.5-5.1) 05/22/18 06:20 Chloride 100 mmol/L (98-107) 05/22/18 06:20 Carbon Dioxide 38.6 mmol/L (21-32) H 05/22/18 06:20 BUN 6 mg/dL (7-18) L 05/22/18 06:20 Creatinine 1.00 mg/dL (0.70-1.30) 05/22/18 06:20 Est GFR (MDRD) Af Amer > 60 (>60) 05/22/18 06:20 Est GFR (MDRD) Non-Af > 60 (>60) 05/22/18 06:20 Glucose 90 mg/dL (65-99) 05/22/18 06:20 Calcium 9.2 mg/dL (8.5-10.1) 05/22/18 06:20 Corrected Calcium TNP 05/22/18 06:20 Magnesium 1.8 mg/dL (1.7-2.9) 05/21/18 04:33 Total Bilirubin 0.70 mg/dL (0.2-1.0) 05/22/18 06:20 AST 25 Units/L (15-37) 05/22/18 06:20 ALT 25 Units/L (12-78) 05/22/18 06:20 Alkaline Phosphatase 60 Units/L (46-116) 05/22/18 06:20 Creatine Kinase 226 Units/L (39-308) 05/17/18 13:22 CK-MB (CK-2) 6.6 ng/mL (0-4.0) H* 05/17/18 13:22 CK/CKMB % Calc 2.9 % (<4) 05/17/18 13:22 Troponin I 0.02 ng/mL (0-1.5) 05/17/18 13:22 C-Reactive Protein 2.30 mg/L (0-3.0) 05/17/18 01:30 B-Natriuretic Peptide 14.3 pg/mL (0-79) 05/17/18 01:30 Total Protein 6.6 g/dL (6.4-8.2) 05/22/18 06:20 Albumin 3.4 g/dL (3.4-5.0) 05/22/18 06:20 Globulin 3.2 g/dL (2.5-4.5) 05/22/18 06:20 Albumin/Globulin Ratio 1.1 Ratio (1.1-2.1) 05/22/18 06:20 Triglycerides 48 mg/dL (0-150) 05/17/18 04:47 Cholesterol 139 mg/dL (0-200) 05/17/18 04:47 LDL Cholesterol, Calc 70 mg/dL (0-100) 05/17/18 04:47 HDL Cholesterol 59 mg/dL (40-60) 05/17/18 04:47 Cholesterol/HDL Ratio 2.4 (0.0-5.0) 05/17/18 04:47 Free PSA Cancelled 05/19/18 05:16 % Free PSA Calc Cancelled 05/19/18 05:16 Total PSA 13.77 ng/mL (0.13-4.0) H 05/19/18 05:16 Specimen Type Random urine 05/17/18 06:19 Urine Color Yellow (YELLOW) 05/17/18 06:19 Urine Appearance Hazy (CLEAR) 05/17/18 06:19 Urine pH 7.0 (5.0 - 8.0) 05/17/18 06:19 Ur Specific [place] 1.005 (1.000-1.030) 05/17/18 06:19 Urine Protein 2+ (NEGATIVE) 05/17/18 06:19 Urine Glucose (UA) Negative (NEGATIVE) 05/17/18 06:19 Urine Ketones Negative (NEGATIVE) 05/17/18 06:19 Urine Occult Blood 5+ (NEGATIVE) 07/03/18 06:19 Urine Nitrite Negative (NEGATIVE) 05/17/18 06:19 Urine Bilirubin Negative (NEGATIVE) 05/17/18 06:19 Urine Urobilinogen Normal (NORMAL) 05/17/18 06:19 Ur Leukocyte Esterase 1+ (NEGATIVE) 05/17/18 06:19 Urine RBC 30-50 /HPF (NONE SEEN) 05/17/18 06:19 Urine WBC 0-2 /HPF (NONE SEEN) 05/17/18 06:19 Ur Squamous Epith Cells Rare /HPF (NEGATIVE) 05/17/18 06:19 Urine Bacteria Negative /HPF (NEGATIVE) 05/17/18 06:19 Ur Culture Indicated? No/not indicated 05/17/18 06:19 H. pylori IgG Antibody Positive (NEGATIVE) A 05/17/18 01:30 - Plan (1) Hypokalemia Status: Acute Plan: LABS DAILY, SUPPLEMENTAL KCL (2) Renal calculi Status: Acute Plan: MONITOR FOR PAIN (3) Left lower lobe pneumonia Status: Acute Qualifiers: Pneumonia type: due to unspecified organism Qualified Code(s): J18.1 - Lobar pneumonia, unspecified organism Plan: DIFLUCAN IV, NEBS (4) Ileus, unspecified Status: Resolved (5) H. pylori infection Status: Acute Plan: pepcid iv, protonix iv, gi cocktail, continue to monitor
[2018-05-23 05:19] LABS: BASOPHILS % (AUTO) 0.4 % (0.2-1.0); EOSINOPHILS # (AUTO) 0.1 x10^3/uL (0.0-0.2); EOSINOPHILS % (AUTO) 2.2 % (0.9-2.9); HEMATOCRIT 38.4 % (42.0-54.0); HEMOGLOBIN 13.1 g/dL (13.5-18.0); LYMPHOCYTES % (AUTO) 24.4 % (21.0-51.0); MEAN CORPUSCULAR HEMOGLOBIN 31.2 pg (27.0-34.0); MEAN CORPUSCULAR HGB CONC 34.2 g/dL (33.0-35.0); MEAN CORPUSCULAR VOLUME 91.1 fL (80.0-100.0); MEAN PLATELET VOLUME 9.5 fL (7.4-11.0); MONOCYTES # (AUTO) 0.4 x10^3/uL (0.3-0.8); MONOCYTES % (AUTO) 10.6 % (0.0-13.0); NEUTROPHILS # (AUTO) 2.6 x10^3/uL (2.2-4.8); NEUTROPHILS % (AUTO) 62.4 % (42.0-75.0); PLATELET COUNT 91 X10^3/uL (150.0-450.0); RED BLOOD COUNT 4.21 X10^6/uL (4.7-6.0); RED CELL DISTRIBUTION WIDTH 13.3 % (11.6-16.5); WHITE BLOOD COUNT 4.2 X10^3/uL (3.6-10.0)
[2018-05-23 05:27] LABS: ALANINE AMINOTRANSFERASE 20 Units/L (12-78); ALKALINE PHOSPHATASE 56 Units/L (46-116); ASPARTATE AMINO TRANSFERASE 20 Units/L (15-37); BLOOD UREA NITROGEN 10 mg/dL (7-18); CALCIUM 8.9 mg/dL (8.5-10.1); CARBON DIOXIDE 36.1 mmol/L (21-32); CHLORIDE 105 mmol/L (98-107); COR CA(FOR HYPOALB) 9.7 mg/dL (8.5-10.1); CREATININE 1.11 mg/dL (0.70-1.30); MAGNESIUM 1.8 mg/dL (1.7-2.9); SODIUM 143 mmol/L (136-145); eGFR NON BLACK RACES > 60 (>60)
[2018-05-23] MEDS: NS 1000 ML 1,000 ML IV SCH ×4 (06:03→21:21)
[2018-05-23] MEDS: MAGNESIUM SULFATE 1 GRAM/100 mL PREMIX 1 GM/100 ML BAG IV PRN (06:27)
[2018-05-23] MEDS: PEPCID 20 MG IV PREMIX* 20 MG/50 ML BAG IV SCH ×2 (09:03→21:15)
[2018-05-23] MEDS: PROTONIX INJ 40 MG VIAL IVP SCH ×2 (09:03→21:14)
[2018-05-23] MEDS: LEVSIN/MAALOX/LIDOC VISC PO SCH ×4 (09:03→21:14)
[2018-05-23] MEDS: CHRONULAC PO SCH (09:14)
--- NOTE | 2018-05-23 10:06 | RAD ---
Examination: KUB History: Ileus Comparison reference 05/21/2018 Findings: There is mild gaseous dilatation of scattered segments of small bowel and colon. No mass fo rmation or ascites demonstrated. Multiple pelvic calcifications are present. Impression: Mild nonobstructive intestinal distention consistent with ileus. Stable appearance of guillermina dder calculi. Reported By:
[2018-05-23] MEDS: DIFLUCAN PO SCH (11:59)
--- NOTE | 2018-05-23 12:22 | PCM.PROG ---
Progress Note - Progress Note for Day of Date of Exam: 05/23/18 - Subjective Subjective: IS BEING TREATED FOR ILEUS, RENAL CALCULI, AND H. PYLORI. TODAY, HE IS ALERT AND ORIENTED, LYING IN THE BED ON MORNING ROUNDS. TODAY, HE CONTINUES WITH COMPLAINTS OF SUPRAPUBIC PAIN AND LOWER BACK PAIN. HE DENIES CHEST PAIN UPON ROUNDS. ON EXAMINATION, HEART IS REGULAR IN RATE AND RHYTHM. BILATERAL LUNGS ARE NOTED WITH DIMINISHED LUNG SOUNDS THROUGHOUT. ABDOMEN IS FLAT, SOFT, AND NOTED WITH MILD, DIFFUSE ABDOMINAL PAIN ON PALPATION. HIS VITALS THIS MORNING ARE 98.1-79-26-98%-129/81. A CHEST XRAY WAS OBTAINED TODAY AND IS STABLE. A KUB WAS OBTAINED AND REVEALED MILD NONOBSTRUCTIVE INTESTINAL DISTENTION CONSISTENT WITH ILEUS. STABLE APPEARANCE OF BLADDER CALCULI. TODAY WE WILL CONTINUE WITH IV FLUIDS, PEPCID, PROTONIX, CHRONULAC, AND CURRENT PLAN OF CARE. OTHERWISE, WE PLAN TO FOLLOW UP WITH AM LABS AND CONTINUE TO MONITOR PATIENT. - Past Medical Family Social History Past Med/Fam/Surg Hx: No changes since H&P Allergies: Allergies acetaminophen [From Percocet] Adverse Reaction (Verified 05/01/18 19:05) ciprofloxacin [From Cipro] Adverse Reaction (Verified 05/01/18 19:05) oxycodone [From Percocet] Adverse Reaction (Verified 05/01/18 19:05) - Review of Systems ROS: No change since H&P - Vital Signs and I&O's Vital Signs: Temperature 98.1 F Pulse Rate [Right] 79 Pulse Rate 86 Respiratory Rate 26 Blood Pressure [Right Arm] 129/81 Blood Pressure [Left Arm] 158/78 Blood Pressure 176/100 O2 Sat by Pulse Oximetry 98 Intake and Output: Intake & Output 05/21/18 05/22/18 05/23/18 05/24/18 11:59 11:59 11:59 11:59 Intake Total 1600 / 1600 2362 / 2362 1166 / 1166 Output Total 600 / 600 550 / 550 Balance 1000 / 1000 1812 / 1812 1166 / 1166 - Physical Exam Oriented: Normal Eyes: Normal Ear: Normal Nose: Normal Throat: Normal Respiratory: Right, Left, Generalized, Diminished Cardiovascular: Normal. negative: S3, S4, Murmur : Normal Auscultation: Bowel Sounds: Normal Tenderness: Normal Skin: Normal Musculoskeletal: Right, Left, Shoulder, Back:Thoracic, Tender Psychiatric: Normal Mood Description: Calm Affect: Normal Speech Pattern: Clear, Appropriate - Laboratory and Diagnostics Result Diagrams: 05/23/18 04:24 05/23/18 04:24 Labs: 05/18/18 15:55 Sputum - Expectorated Sputum Sputum Culture - Final 05/18/18 15:55 Sputum - Expectorated Sputum - Final Laboratory WBC 4.2 X10^3/uL (3.6-10.0) 05/23/18 04:24 RBC 4.21 X10^6/uL (4.7-6.0) L 05/23/18 04:24 Hgb 13.1 g/dL (13.5-18.0) L 05/23/18 04:24 Hct 38.4 % (42.0-54.0) L 05/23/18 04:24 MCV 91.1 fL (80.0-100.0) 05/23/18 04:24 MCH 31.2 pg (27.0-34.0) 05/23/18 04:24 MCHC 34.2 g/dL (33.0-35.0) 05/23/18 04:24 RDW 13.3 % (11.6-16.5) 05/23/18 04:24 Plt Count 91 X10^3/uL (150.0-450.0) L 05/23/18 04:24 MPV 9.5 fL (7.4-11.0) 05/23/18 04:24 Neut % (Auto) 62.4 % (42.0-75.0) 05/23/18 04:24 Lymph % (Auto) 24.4 % (21.0-51.0) 05/23/18 04:24 [place] % (Auto) 10.6 % (0.0-13.0) 05/23/18 04:24 Eos % (Auto) 2.2 % (0.9-2.9) 05/23/18 04:24 Baso % (Auto) 0.4 % (0.2-1.0) 05/23/18 04:24 Neut # (Auto) 2.6 x10^3/uL (2.2-4.8) 05/23/18 04:24 Lymph # (Auto) 1.0 X10^3/uL (1.3-2.9) L 05/23/18 04:24 [place] # (Auto) 0.4 x10^3/uL (0.3-0.8) 05/23/18 04:24 Eos # (Auto) 0.1 x10^3/uL (0.0-0.2) 05/23/18 04:24 Baso # (Auto) 0.0 X10^3/uL (0.0-0.1) 05/23/18 04:24 Absolute Nucleated RBC 0.1 /100WBC 05/23/18 04:24 INR Target Range - 05/17/18 01:30 INR 0.99 (0.8-1.3) 05/17/18 01:30 APTT 32.5 SECONDS (22.9-36.5) 05/17/18 01:30 PTT Comment - 05/17/18 01:30 Sodium 143 mmol/L (136-145) 05/23/18 04:24 Corrected Sodium TNP 05/23/18 04:24 Potassium 4.5 mmol/L (3.5-5.1) 05/23/18 04:24 Chloride 105 mmol/L (98-107) 05/23/18 04:24 Carbon Dioxide 36.1 mmol/L (21-32) H 05/23/18 04:24 BUN 10 mg/dL (7-18) 05/23/18 04:24 Creatinine 1.11 mg/dL (0.70-1.30) 05/23/18 04:24 Est GFR (MDRD) Af Amer > 60 (>60) 05/23/18 04:24 Est GFR (MDRD) Non-Af > 60 (>60) 05/23/18 04:24 Glucose 96 mg/dL (65-99) 05/23/18 04:24 Calcium 8.9 mg/dL (8.5-10.1) 05/23/18 04:24 Corrected Calcium 9.7 mg/dL (8.5-10.1) 05/23/18 04:24 Magnesium 1.8 mg/dL (1.7-2.9) 05/23/18 04:24 Total Bilirubin 0.60 mg/dL (0.2-1.0) 05/23/18 04:24 AST 20 Units/L (15-37) 05/23/18 04:24 ALT 20 Units/L (12-78) 05/23/18 04:24 Alkaline Phosphatase 56 Units/L (46-116) 05/23/18 04:24 Creatine Kinase 226 Units/L (39-308) 05/17/18 13:22 CK-MB (CK-2) 6.6 ng/mL (0-4.0) H* 05/17/18 13:22 CK/CKMB % Calc 2.9 % (<4) 05/17/18 13:22 Troponin I 0.02 ng/mL (0-1.5) 05/17/18 13:22 C-Reactive Protein 2.30 mg/L (0-3.0) 05/17/18 01:30 B-Natriuretic Peptide 14.3 pg/mL (0-79) 05/17/18 01:30 Total Protein 6.0 g/dL (6.4-8.2) L 05/23/18 04:24 Albumin 3.0 g/dL (3.4-5.0) L 05/23/18 04:24 Globulin 3.0 g/dL (2.5-4.5) 05/23/18 04:24 Albumin/Globulin Ratio 1.0 Ratio (1.1-2.1) L 05/23/18 04:24 Triglycerides 48 mg/dL (0-150) 05/17/18 04:47 Cholesterol 139 mg/dL (0-200) 05/17/18 04:47 LDL Cholesterol, Calc 70 mg/dL (0-100) 05/17/18 04:47 HDL Cholesterol 59 mg/dL (40-60) 05/17/18 04:47 Cholesterol/HDL Ratio 2.4 (0.0-5.0) 05/17/18 04:47 Free PSA Cancelled 05/19/18 05:16 % Free PSA Calc Cancelled 05/19/18 05:16 Total PSA 13.77 ng/mL (0.13-4.0) H 05/19/18 05:16 Specimen Type Random urine 05/17/18 06:19 Urine Color Yellow (YELLOW) 05/17/18 06:19 Urine Appearance Hazy (CLEAR) 05/17/18 06:19 Urine pH 7.0 (5.0 - 8.0) 05/17/18 06:19 Ur Specific [place] 1.005 (1.000-1.030) 05/17/18 06:19 Urine Protein 2+ (NEGATIVE) 05/17/18 06:19 Urine Glucose (UA) Negative (NEGATIVE) 05/17/18 06:19 Urine Ketones Negative (NEGATIVE) 05/17/18 06:19 Urine Occult Blood 5+ (NEGATIVE) 05/17/18 06:19 Urine Nitrite Negative (NEGATIVE) 05/17/18 06:19 Urine Bilirubin Negative (NEGATIVE) 05/17/18 06:19 Urine Urobilinogen Normal (NORMAL) 05/17/18 06:19 Ur Leukocyte Esterase 1+ (NEGATIVE) 05/17/18 06:19 Urine RBC 30-50 /HPF (NONE SEEN) 05/17/18 06:19 Urine WBC 0-2 /HPF (NONE SEEN) 05/17/18 06:19 Ur Squamous Epith Cells Rare /HPF (NEGATIVE) 05/17/18 06:19 Urine Bacteria Negative /HPF (NEGATIVE) 05/17/18 06:19 Ur Culture Indicated? No/not indicated 05/17/18 06:19 H. pylori IgG Antibody Positive (NEGATIVE) A 05/17/18 01:30 - Plan (1) Chest pain, rule out acute myocardial infarction Status: Resolved Plan: telemetry, supplemental oxygen, continue to monitor (2) H. pylori infection Status: Acute Plan: pepcid iv, protonix iv, gi cocktail, continue to monitor (3) Ileus, unspecified Status: Resolved Plan: KUB, LACTULOSE (4) Abdominal pain Status: Acute Qualifiers: Abdominal location: generalized Qualified Code(s): R10.84 - Generalized abdominal pain Plan: CONTINUE TO MONITOR PAIN (5) Shortness of breath Status: Acute Plan: SUPPLEMENTAL OXYGEN, CONTINUE TO MONITOR (6) Renal calculi Status: Acute Plan: MONITOR FOR PAIN
[2018-05-23] MEDS: RESTORIL CAP 15 MG PO PRN (21:15)
[2018-05-23] MEDS: ATIVAN TAB 0.5 MG PO PRN (21:15)
[2018-05-24] MEDS: NS 1000 ML 1,000 ML IV SCH (00:41)
[2018-05-24 05:18] LABS: BASOPHILS # (AUTO) 0.2 X10^3/uL (0.0-0.1); BASOPHILS % (AUTO) 2.4 % (0.2-1.0); EOSINOPHILS # (AUTO) 0.1 x10^3/uL (0.0-0.2); HEMATOCRIT 39.1 % (42.0-54.0); HEMOGLOBIN 13.2 g/dL (13.5-18.0); LYMPHOCYTES # (AUTO) 0.6 X10^3/uL (1.3-2.9); LYMPHOCYTES % (AUTO) 9.9 % (21.0-51.0); MEAN CORPUSCULAR HEMOGLOBIN 30.7 pg (27.0-34.0); MEAN CORPUSCULAR HGB CONC 33.6 g/dL (33.0-35.0); MEAN CORPUSCULAR VOLUME 91.3 fL (80.0-100.0); MEAN PLATELET VOLUME 9.8 fL (7.4-11.0); MONOCYTES # (AUTO) 0.4 x10^3/uL (0.3-0.8); MONOCYTES % (AUTO) 6.2 % (0.0-13.0); NEUTROPHILS % (AUTO) 79.5 % (42.0-75.0); PLATELET COUNT 98 X10^3/uL (150.0-450.0); RED BLOOD COUNT 4.28 X10^6/uL (4.7-6.0); RED CELL DISTRIBUTION WIDTH 13.2 % (11.6-16.5); WHITE BLOOD COUNT 6.3 X10^3/uL (3.6-10.0)
[2018-05-24 05:21] LABS: ALANINE AMINOTRANSFERASE 20 Units/L (12-78); ALKALINE PHOSPHATASE 59 Units/L (46-116); ASPARTATE AMINO TRANSFERASE 21 Units/L (15-37); BLOOD UREA NITROGEN 12 mg/dL (7-18); CALCIUM 8.9 mg/dL (8.5-10.1); CARBON DIOXIDE 35.3 mmol/L (21-32); CHLORIDE 104 mmol/L (98-107); COR CA(FOR HYPOALB) 9.7 mg/dL (8.5-10.1); CREATININE 0.91 mg/dL (0.70-1.30); SODIUM 140 mmol/L (136-145); TOTAL PROTEIN 6.4 g/dL (6.4-8.2); eGFR NON BLACK RACES > 60 (>60)
[2018-05-24] MEDS ORDERED: ASPIRIN PO SCH (09:00)
--- NOTE | 2018-05-24 09:54 | RAD ---
History: Ileus Study: KUB Comparison: May 23 Findings: There are 5 large bladder calculi as before. There is prominent gas in large and small maty l diffusely without abnormal distention. Radiographically faint and multiple small left renal calculi are visualized. There are mild degenerative osteophytes in the lower lumbar spine. Impression: 1. Large bladder calculi and multiple left renal calculi. 2. Prominent amount of bowel gas with no evidence for obstruction. Findings may represent a mild ileu s or diffuse gastroenteritis Reported By:
[2018-05-24] MEDS: LEVSIN/MAALOX/LIDOC VISC PO SCH ×2 (09:59→13:31)
[2018-05-24] MEDS: CHRONULAC PO SCH (09:59)
[2018-05-24] MEDS: PEPCID 20 MG IV PREMIX* 20 MG/50 ML BAG IV SCH (09:59)
[2018-05-24] MEDS: DIFLUCAN PO SCH (10:00)
[2018-05-24] MEDS: PROTONIX INJ 40 MG VIAL IVP SCH (10:01)
[2018-05-24 12:21] VITALS: BP 119/55
[2018-05-25 06:23] LABS: ACID FAST STAIN NEGATIVE
--- NOTE | 2018-06-07 19:05 | DR.CARTERD ---
- Discharge Summary for: Discharge Summary for Date of:: 05/24/18 - Admission Date Date of Admission: 05/17/18 - Admission Diagnoses Admission Diagnosis: (1) Chest pain, rule out acute myocardial infarction (2) H. pylori infection (3) Ileus, unspecified - Discharge Date Discharge Date: 05/24/18 - Discharge Diagnoses Discharge Diagnosis: (1) Fungal Pneumonia (2) Chest pain, rule out acute myocardial infarction (2) Shortness of breath (3) Abdominal pain (4) Ileus, unspecified (5) H. pylori infection (6) Renal calculi - Hospital Course Hospital Course: DAY ONE, MR. DALEY IS A 73 YEAR OLD PATIENT OF OURS WHO PRESENTED TO THE EMERGENCY ROOM WITH REPORTS OF CHEST PAIN. PATIENT REPORTED PAIN STARTED ONE DAY PRIOR WITH ASSOCIATED PAIN TO BACK AND SHOULDERS. PATIENT ALSO REPORTED HE HAD BEEN GETTING CHOKED EASILY. ON ARRIVAL, VITALS WERE 97.9-86-20-97%RA-176/ 100. ABNORMAL LABS WERE: RBC 4.49, HCT 40.7, PLT COUNT 129, CARBON DIOXIDE 34.7 , GLUCOSE 103, AST 52, CREATINE KINASE 510, CKMB 12.8, H.PYORI POSITIVE. SPUTUM CULTURES OBTAINED. URINALYSIS: HAZY, PROTEIN 2+, OCCULT BLOOD 5+, LEUK EST 1+, RBC 30-50, WBC 0-2. EKG: SINUS RHYTHM, RATE 85. CHEST XRAY REPORTED NO ACUTE CARDIOPULMONARY ABNORMALITY. KUB REPORTED IMAGING FINDINGS SUGGESTIVE FOR GENERALIZED ILEUS; NO CURRENT CONVINCING EVIDENCE FOR BOWEL OBSTRUCTION; MULTIPLE ROUND DENSITIES PROJECTING OVER THE LOWER PELVIS WHICH MEASURE UP TO 1.4 CM IN SIZE, POSSIBLY REPRESENTING BLADDER STONES. PATIENT ADMITTED TO THE HOSPITAL FOR FURTHER EVALUATION AND TREATMENT. WE OBTAINED SERIAL CARDIAC ENZYMES AND EKG'S. WE STARTED PEPCID IV, PROTONIX IV, AND GI COCKTAIL. PATIENT PLACED ON CONTINUOUS WELDER BOILERMAKER. DAY TWO, MR. DALEY WAS ADMITTED FOR CHEST PAIN, RULE OUT MYOCARDIAL INFARCTION AND ILEUS. HE WAS ALERT AND ORIENTED, LYING IN BED ON MORNING ROUNDS. HE WAS NOTED WITH COMPLAINTS OF SHORTNESS OF BREATH, DIFFUSE ABDOMINAL PAIN, AND LOWER BACK PAIN. HE DENIED CHEST PAIN UPON ROUNDS. ON EXAMINATION, HEART WAS REGULAR IN RATE AND RHYTHM. BILATERAL LUNGS WERE NOTED WITH DIMINISHED LUNG SOUNDS THROUGHOUT. ABDOMEN WAS FLAT, SOFT, AND NOTED WITH MILD, DIFFUSE ABDOMINAL PAIN ON PALPATION. HIS VITALS WERE 98.9-74-16-100%-163/74. LABS WERE OBTAINED. ABNORMAL LAB VALUES INCLUDED THE FOLLOWING: WBC 3.3, RBC 4.49, HCT 41.1, PLT COUNT 82, CARBON DIOXIDE 34.9, ALBUMIN 3.1. WE CONTINUED TREATMENT. DAY THREE, HE WAS ALERT AND ORIENTED, SITTING IN THE CHAIR ON MORNING ROUNDS. HE CONTINUED WITH COMPLAINTS OF SHORTNESS OF BREATH, DIFFUSE ABDOMINAL PAIN, AND LOWER BACK PAIN. HE DENIED CHEST PAIN UPON ROUNDS. ON EXAMINATION, HEART WAS REGULAR IN RATE AND RHYTHM. BILATERAL LUNGS WERE NOTED WITH DIMINISHED LUNG SOUNDS THROUGHOUT. ABDOMEN WAS FLAT, SOFT, AND NOTED WITH MILD, DIFFUSE ABDOMINAL PAIN ON PALPATION. AN ABDOMEN/PELVIS WAS OBTAINED AND REVLEALED BILATERAL NONOBSTRUCTING RENAL CALCULI MULTIPLE ON THE LEFT; AT LEAST 5 BLADDER CALCULI; ABNORMAL PARENCHYMAL DENSITY ABUTTING THE POSTERIOR AND MEDIAL PLEURA INFERIORLY IN THE LEFT LOWER LOBE WHICH COULD REPRESENT INFILTRATE, ATELECTASIS , OR NEOPLASM. WE CONTINUED TREATMENT AND CONTINUED TO MONITOR PATIENT. DAY FOUR, HE CONTINUED WITH COMPLAINTS OF SHORTNESS OF BREATH, DIFFUSE ABDOMINAL PAIN, AND LOWER BACK PAIN, BUT REPORTED SLIGHT IMPROVEMENT SINCE THE DAY PRIOR. HE DENIED CHEST PAIN UPON ROUNDS. ON EXAMINATION, HEART WAS REGULAR IN RATE AND RHYTHM. BILATERAL LUNGS WERE NOTED WITH DIMINISHED LUNG SOUNDS THROUGHOUT. ABDOMEN WAS FLAT, SOFT, AND NOTED WITH MILD, DIFFUSE ABDOMINAL PAIN ON PALPATION. A CHEST CT WAS OBTAINED AND REVEALED: LEFT LOWER LOBE COMPRESSIVE ATELECTASIS VERSUS INFILTRATE WITH SMALL ASSOCIATED PLEURAL EFFUSION; THERE ARE ALSO SCATTERED TREE-IN-BUD OPACITIES WITHIN THE LEFT LOWER LOBE; THIS MAY REPRESENT AN ATYPICAL MYCOBACTERIAL INFECTION; NO ACUTE PULMONARY EMBOLUS; NONSPECIFIC DIFFUSE MUCOSAL THICKENING OF THE ESOPHAGUS. WE STARTED PATIENT ON DIFLUCAN 200MG IV DAILY. WE CONTINUED TREATMENT. DAY FIVE, DR. BRENNAN COVERED: HE WAS ALERT AND ORIENTED. PATIENT WAS SITTING UP IN CHAIR EATING LUNCH. PATIENT STATED HE WAS FEELING BETTER. HE REPORTED MILD GENERALIZED UPPER ABDOMINAL TENDERNESS. DENIED BM. DENIED SOB. DISCUSSION WAS HAD WITH PATIENT AND REGARDING LAST NIGHT HE WAS FOUND IN THE CORNER TRYING TO GET OUT. PATIENT ADMITTED TO BEING FORGETFUL. STATED FRIENDS HAD ASKED IF HE HAD DEMENTIA. PATIENT DENIED HISTORY IN FAMILY. DENIED ANY OTHER COMPLAINTS. DAY SIX, DR. BRENNAN COVERED: HE WAS ALERT AND ORIENTED, SITTING ON SIDE OF BED. HE STATED HE NEEDED SOMETHING FOR HIS NERVES. PATIENT STATED HE FELT NERVOUS. HE STATED HE THOUGHT THAT IS WHY HIS BP WAS ELEVATED. HE DENIED SOB OR PRODUCTIVE COUGH. DENIED ABD PAIN. HE WAS TOLERATING DIET. HAD VOICED CONCERNS FOR DEMENTIA. NO OTHER COMPLAINTS. DAY SEVEN, CONTINUED TREATMENT FOR ILEUS, RENAL CALCULI, AND H. PYLORI. HE WAS ALERT AND ORIENTED, LYING IN THE BED ON MORNING ROUNDS. HE CONTINUED WITH COMPLAINTS OF SUPRAPUBIC PAIN AND LOWER BACK PAIN. HE DENIED CHEST PAIN UPON ROUNDS. ON EXAMINATION, HEART WAS REGULAR IN RATE AND RHYTHM. BILATERAL LUNGS WERE NOTED WITH DIMINISHED LUNG SOUNDS THROUGHOUT. ABDOMEN WAS FLAT, SOFT , AND NOTED WITH MILD, DIFFUSE ABDOMINAL PAIN ON PALPATION. HIS VITALS WERE 98.1 -79-26-98%-129/81. A CHEST XRAY WAS OBTAINED AND WAS STABLE. A KUB WAS OBTAINED AND REVEALED MILD NONOBSTRUCTIVE INTESTINAL DISTENTION CONSISTENT WITH ILEUS, STABLE APPEARANCE OF BLADDER CALCULI. WE CONTINUED WITH IV FLUIDS, PEPCID, PROTONIX, AND CHRONULAC. WE CONTINUED TO MONITOR PATIENT. DAY EIGHT, PATIENT REPORTED HE WAS FEELING BETTER. ON EXAMINATION, NO ABDOMINAL PAIN WAS NOTED. HE HAD 4 BOWEL MOVEMENT OVER THE PAST TWO DAYS. ON AUSCULTATION , LUNGS WERE DIMINISHED THROUGHOUT. FINAL SPUTUM CULTURES NEGATIVE. VITAL SIGNS STABLE. LABS WNL. WE PLANNED FOR DISCHARGE. INSTRUCTIONS FOR MEDICATIONS AND FOLLOW UP WERE DISCUSSED WITH PATIENT AND FAMILY, BOTH VOICED UNDERSTANDING. PATIENT DISCHARGED HOME IN STABLE CONDITION WITH FAMILY. - Discharge Medications Discharge Medications: Home Medication List famotidine [Pepcid] 20 mg PO BID #60 tab 05/24/18 [Rx] fluconazole [Diflucan] 200 mg PO DAILY #10 tab 05/24/18 [Rx] hyoscyamine sulfate 10 ml PO QID PRN #240 ml 05/24/18 [Rx] ketorolac 10 mg PO Q6H PRN #20 tab 05/24/18 [Rx] pantoprazole [Protonix] 40 mg PO BID #60 tab 05/24/18 [Rx] Prescriptions: famotidine [Pepcid] Itz Jenkins fluconazole [Diflucan] Itz Jenkins hyoscyamine sulfate Itz Jenkins ketorolac Itz Jenkins pantoprazole [Protonix] Itz Jenkins - Discharge Disposition Discharge Disposition: PATIENT IS TO FOLLOW UP IN OUR OFFICE IN ONE WEEK.
== END 2018-05-24 13:40 | disposition home health service (06) | DRG 313 ==
LOC: ICU 01:04 → ER 01:04 → ICU 03:47 → MED/SURG 05-23 15:05
PROVIDERS: ADMIT Internal Medicine; ATTEND Internal Medicine
DX: M54.89 Other dorsalgia; R26.89 Other abnormalities of gait and mobility; R79.89 Other specified abnormal findings of blood chemistry; B96.81 Helicobacter pylori [H. pylori] as the cause of diseases classified elsewhere; R10.84 Generalized abdominal pain; J90 Pleural effusion, not elsewhere classified; J18.8 Other pneumonia, unspecified organism; E87.6 Hypokalemia; R07.89 Other chest pain; R06.02 Shortness of breath; K56.7 Ileus, unspecified; R97.20 Elevated prostate specific antigen [PSA]; N20.0 Calculus of kidney; R13.11 Dysphagia, oral phase
CPT/HCPCS: 36415; 71010; 71045; 71260; 74000; 74018; 74022; 74176; 80053; 80061; 81001; 82550; 82553; 83735; 83880; 84153; 84484; 85025; 85610; 85730; 86140; 86677; 87015; 87070; 87116; 87205; 92526; 92610; 93005; 93010; 96365; 96367; 97110; 97112; 97116; 97163; 97165; 97530; 97535; 99231; 99284; A4216; A4222; C9113; Q0177; S0028; G0378; J1450; J3475; J3490; J7030; J7050; J8499